=== PATIENT | male | born 1950 | race Caucasian/White ===

== ENCOUNTER 2018-09-30 13:24 | Emergency (ER) | payer OTHER ==
[2018-09-30 14:37] LABS: Absolute Lymphocytes (CBC) 1.2 K/uL (0.7-4.9); Basophils % 0.4 % (0-1.3); Hematocrit 38.6 % (39.6-49.0); Lymphocytes % 21.5 % (15.3-44.8); MPV 8.4 fL (7.6-11.3); RBC Red Blood Cell Count 4.19 M/uL (4.33-5.43)
--- NOTE | 2018-09-30 14:37 | RAD REPORT ---
EXAM DESCRIPTION: CT - Head Brain Wo Cont - 09/30/2018 2:27 pm CLINICAL HISTORY: Numbness COMPARISON: None TECHNIQUE: Computed axial tomography of the head was obtained. IV contrast was not requested. All CT scans are performed using dose optimization technique as appropriate and may include automated exposure control or mA/KV adjustment according to patient size. FINDINGS: Postsurgical changes of an aneurysm repair are present. Artifact from the coils/clips resu lt in adjacent artifact limiting evaluation of the [place]. An intracranial bleed is not seen. The ventricles are normal in caliber. No extra-axial fluid collection is noted. Fluid within the sinuses/ mastoids is not seen. IMPRESSION: No acute intracranial abnormality is seen.
[2018-09-30 14:41] LABS: Magnesium 2.3 mg/dL (1.8-2.4)
--- NOTE | 2018-09-30 14:57 | RAD REPORT ---
EXAM DESCRIPTION: CTThoracic Spine W/o Cont09/30/2018 2:27 pm CLINICAL HISTORY: Numbness COMPARISON: None TECHNIQUE: Computed axial tomography of thoracic spine was obtained with coronal and sagittal recons truction. All CT scans are performed using dose optimization technique as appropriate and may include automated exposure control or mA/KV adjustment according to patient size. FINDINGS: No fracture is seen. No dislocation is noted. Mild spondylosis An obvious significant bulging/disc herniation is not seen. Evaluation is limited on CT. Ascending thoracic aortic aneurysm 4.6 centimeters IMPRESSION: Negative for a thoracic fracture If the patient has clinical symptoms to suggest spinal cord/canal pathology then MRI would be recomme nded. Ascending thoracic aortic aneurysm 4.6 centimeters
--- NOTE | 2018-09-30 14:57 | RAD REPORT ---
EXAM DESCRIPTION: CTSpine Lumbar Wo Con09/30/2018 2:30 pm CLINICAL HISTORY: Numbness COMPARISON: None TECHNIQUE: Computed axial tomography lumbar spine was obtained with coronal and sagittal reconstruct ion. All CT scans are performed using dose optimization technique as appropriate and may include automated exposure control or mA/KV adjustment according to patient size. FINDINGS: Mild anterior subluxation L5 on S1. Spondylolysis L5. Disc space narrowing and vacuum phen omena L5-S1. No acute fracture. L1-2 disc is thinned. Vacuum phenomena is present. Gas bubble measuring 7 millimeters extends from th e disc into the right posterolateral aspect of the spinal canal inferiorly. Disc bulge is present Mild posterior subluxation of L2 on L3. Disc bulge. Thecal sac measures 8 millimeters. Neural foramin a are narrowed. Disc bulge L3-4. Mild narrowing of the thecal sac Mild posterior subluxation L4 on L5 with facet hypertrophy and mild narrowing of the thecal sac. 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
--- NOTE | 2018-09-30 15:10 | RAD REPORT ---
EXAM DESCRIPTION: US - Lower Extremity Artery Uni Ltd - 09/30/2018 2:41 pm CLINICAL HISTORY: RLE pain and weakness COMPARISON: No comparisons FINDINGS: Doppler interrogation of the right lower extremity arterial system was performed. Triphasi c waveforms are seen throughout the right lower extremity arterial system. No significant stenosis or occlusion seen. Small 2 cm Woodward's cyst. IMPRESSION: No significant flow abnormality of right lower extremity arterial system.
[2018-09-30] MEDS ORDERED: dexAMETHasone 10 MG/ML VIAL ONE (15:40)
[2018-09-30] MEDS ORDERED: MEPERIDINE HCL 25 MG/0.5 ML ONE (15:51)
--- NOTE | 2018-09-30 16:21 | ER ---
Nurse's Notes [facility] Name: Joselito Sharma Age: 68 yrs Sex: Male : 1950 Arrival Date: 09/30/2018 Time: 13:26 Bed 8 Private MD: Johnathan Oropeza C Diagnosis: Intervertebral disc disorders with radiculopathy, lumbar region Presentation: 09/30 13:31 Presenting complaint: Patient states: I have been having a lot of pain in numbness in la1 my back/legs and I cant move my toes in my right foot now. Transition of care: patient was not received from another setting of care. Onset of symptoms was September 30, 2018. Risk Assessment: Do you want to hurt yourself or someone else? Patient reports no desire to harm self or others. Initial Sepsis Screen: Does the patient meet any 2 criteria? No. Patient's initial sepsis screen is negative. Does the patient have a suspected source of infection? No. Patient's initial sepsis screen is negative. Care prior to arrival: None. 13:31 Method Of Arrival: Wheelchair la1 13:31 Acuity: LUIS 2 la1 Historical: - Allergies: 13:32 No Known Allergies; la1 - PMHx: 13:32 Hypertension; High Cholesterol; la1 - Immunization history:: Adult Immunizations up to date. - Social history:: Smoking status: Patient/guardian denies using tobacco. - Ebola Screening: : No symptoms or risks identified at this time. - Family history:: not pertinent. - Hospitalizations: : No recent hospitalization is reported. Screenin:47 Abuse screen: Denies threats or abuse. Denies injuries from another. Nutritional mg2 screening: No deficits noted. Tuberculosis screening: No symptoms or risk factors identified. Fall Risk Fall in past 12 months (25 points). Gait- Weak (10 pts.). Assessment: 13:45 General: Appears in no apparent distress. comfortable, Behavior is calm, cooperative. mg2 Pain: Complains of pain in right leg Pain radiates to right foot Pain currently is 5 out of 10 on a pain scale. Quality of pain is described as numb, Pain began 30 min ago. 4 days ago. Neuro: Level of Consciousness is awake, alert, obeys commands, Oriented to person, place, time, situation. Cardiovascular: Capillary refill < 3 seconds Patient's skin is warm and dry. Respiratory: Airway is patent Respiratory effort is even, unlabored, Respiratory pattern is regular, symmetrical. GI: Reports constipation. : No signs and/or symptoms were reported regarding the genitourinary system. EENT: No signs and/or symptoms were reported regarding the EENT system. Derm: Skin is intact, is healthy with good turgor, Skin is pink, warm \T\ dry. normal. Musculoskeletal: Reports numbness in right foot since wednesday. 14:09 Neuro: Numbness in right foot, presence of pulse in both feet by doppler ultrasound. mg2 16:01 Reassessment: Patient appears in no apparent distress at this time. mg2 Vital Signs: 13:33 BP 170 / 89; Pulse 83; Resp 16; Temp 97.6; Pulse Ox 98% on R/A; Weight 93.44 kg; la1 13:47 BP 152 / 94; Pulse 79; Resp 18; Pulse Ox 99% on R/A; mg2 16:01 BP 136 / 75; Pulse 65; Resp 18; Pulse Ox 98% on R/A; mg2 ED Course: 13:26 Patient arrived in ED. as 13:26 Johnathan Oropeza MD is Private Physician. as 13:30 Arm band placed on right wrist. la1 13:32 Triage completed. la1 13:34 Alex Negron, OBED is Primary Nurse. mg2 13:40 Tim Duran MD is Attending Physician. rn 13:47 Patient has correct armband on for positive identification. Pulse ox on. NIBP on. Door mg2 closed. Warm blanket given. 13:47 No provider procedures requiring assistance completed. Patient did not have IV access mg2 during this emergency room visit. 14:05 Initial lab(s) drawn, by ut, sent to lab. First set of blood cultures drawn by ut. 3 Inserted saline lock: 20 gauge in right antecubital area, using aseptic technique. Blood collected. 14:20 Second set of blood cultures drawn by ut. dh3 14:24 CT Head Brain wo Cont In Process Unspecified. EDMS 14:28 Thoracic Spine W/o Cont In Process Unspecified. EDMS 14:28 Spine Lumbar Wo Con In Process Unspecified. EDMS 14:42 Lower Extremity Artery Uni Ltd US In Process Unspecified. EDMS 16:20 Jerardo Woodward MD is Referral Physician. rn 16:35 IV discontinued, intact, bleeding controlled, No redness/swelling at site. Pressure mg2 dressing applied. Administered Medications: 15:56 Drug: Decadron - Dexamethasone 10 mg Route: IVP; Site: right antecubital; mg2 16:25 Follow up: Response: No adverse reaction mg2 15:56 Drug: Demerol 25 mg Route: IVP; Site: right antecubital; mg2 16:25 Follow up: Response: No adverse reaction; Marked relief of symptoms; RASS: Alert and mg2 Calm (0) Outcome: 16:20 Discharge ordered by . rn 16:35 Discharged to home via wheelchair, with family. mg2 16:35 Condition: stable 16:35 Discharge instructions given to patient, family, Instructed on discharge instructions, follow up and referral plans. medication usage, Demonstrated understanding of instructions, follow-up care, medications, Prescriptions given X 2. 16:53 Patient left the ED. mg2 Signatures: Dispatcher [employer] EDMS Angela Choudhury Roman, MD MD rn Attema, Lee, RN RN mo1 Lena Jules 3 Alex Negron RN RN mg2 Corrections: (The following items were deleted from the chart) 14:10 13:45 GI: No signs and/or symptoms were reported involving the gastrointestinal system. mg2 mg2 16:04 16:01 Pulse 65bpm; Resp 18bpm; Pulse Ox 98% RA; mg2 mg2
--- NOTE | 2018-09-30 16:22 | EDPHYS ---
Physician Documentation [facility] Name: Joselito Sharma Age: 68 yrs Sex: Male : 1950 Arrival Date: 09/30/2018 Time: 13:26 Bed 8 Private MD: Johnathan Oropeza C ED Physician Tim Duran HPI: 09/30 15:41 This 68 yrs old Male presents to ER via Wheelchair with complaints of Leg rn Pain, Back Pain, Numbness - Feet. 15:41 The patient presents with weakness. The complaints affect the right foot. Context: The rn problem was sustained at home, resulted from an unknown cause, the patient can partially bear weight. Onset: The symptoms/episode began/occurred 2 day(s) ago. Modifying factors: The symptoms are alleviated by nothing. the symptoms are aggravated by nothing. Severity of symptoms: At their worst the symptoms were mild, in the emergency department the symptoms are unchanged. The patient has experienced similar episodes in the past. Reports has had chronic back problems with pain in hips, and tingling going down legs. 2 days ago reports noticed weakness of toes, weakness plantar flexing toes and foot, no new trauma, no bowel/bladder issues. No IV drug use. No recent skin infection. Historical: - Allergies: 13:32 No Known Allergies; la1 - PMHx: 13:32 Hypertension; High Cholesterol; la1 - Immunization history:: Adult Immunizations up to date. - Social history:: Smoking status: Patient/guardian denies using tobacco. - Ebola Screening: : No symptoms or risks identified at this time. - Family history:: not pertinent. - Hospitalizations: : No recent hospitalization is reported. ROS: 15:41 Constitutional: Negative for fever, chills, and weight loss, Eyes: Negative for injury, rn pain, redness, and discharge, Neck: Negative for injury, pain, and swelling, Cardiovascular: Negative for chest pain, palpitations, and edema, Respiratory: Negative for shortness of breath, cough, wheezing, and pleuritic chest pain, Abdomen/GI: Negative for abdominal pain, nausea, vomiting, diarrhea, and constipation, Back: + low back pain, negative for injury : Negative for injury, bleeding, discharge, and swelling, MS/Extremity: Negative for injury and deformity, Neuro: + tingling and weakness RLE Exam: 15:41 Constitutional: This is a well developed, well nourished patient who is awake, alert, rn and in no acute distress. Head/Face: Normocephalic, atraumatic. Eyes: Pupils equal round and reactive to light, extra-ocular motions intact. Lids and lashes normal. Conjunctiva and sclera are non-icteric and not injected. Cornea within normal limits. Periorbital areas with no swelling, redness, or edema. Neck: Trachea midline, no thyromegaly or masses palpated, and no cervical lymphadenopathy. Supple, full range of motion without nuchal rigidity, or vertebral point tenderness. No Meningismus. Abdomen/GI: soft, non-tender Back: + lumbar spinal tenderness MS/ Extremity: Pulses equal, no cyanosis. Neurovascular intact. Full, normal range of motion. Equal circumference. Neuro: Awake and alert, GCS 15, oriented to person, place, time, and situation. Cranial nerves II-XII grossly intact. Decreased sensation to RLE below knee, + weakness plantar flexing toes of RLE and plantar flexion of foot. Normal dorsiflexion of foot. Normal strength of knee and hip. Vital Signs: 13:33 BP 170 / 89; Pulse 83; Resp 16; Temp 97.6; Pulse Ox 98% on R/A; Weight 93.44 kg; la1 13:47 BP 152 / 94; Pulse 79; Resp 18; Pulse Ox 99% on R/A; mg2 16:01 BP 136 / 75; Pulse 65; Resp 18; Pulse Ox 98% on R/A; mg2 MDM: 13:41 Patient medically screened. rn 16:18 Differential diagnosis: radiculopathy, spinal cord compression, disc herniation. Data rn reviewed: vital signs, nurses notes, lab test result(s), radiologic studies, CT scan, and as a result, I will discharge patient. Counseling: I had a detailed discussion with the patient and/or guardian regarding: the historical points, exam findings, and any diagnostic results supporting the discharge/admit diagnosis, lab results, radiology results, the need for outpatient follow up, to return to the emergency department if symptoms worsen or persist or if there are any questions or concerns that arise at home. Response to treatment: the patient's symptoms have mildly improved after treatment, and as a result, I will discharge patient. Special discussion: I discussed with the patient/guardian in detail that at this point there is no indication for admission to the hospital. It is understood, however, that if the symptoms persist or worsen the patient needs to return immediately for re-evaluation. Based on the history and exam findings, there is no indication for further emergent testing or inpatient evaluation. I discussed with the patient/guardian the need to see the back specialist for further evaluation of the symptoms. ED course: Pt with nonspecific gas bubble near nerve root that is causing symptoms, could be from recent/subacute disc herniation that has not reabsorbed, no signs or symptoms of abscess, procal normal, wbc normal, not IV drug user, no recent trauma. Mild weakness limited to toes/foot. Will give trial of rest and steroids to see if air reabsorbs, if worsens told to return immediately. Understands. . 16:32 ED course: Told patient and daughter that if does not respond to steroids and time, rn will need needle aspiration by spine surgeon. Given unknown clear onset, and most likely recent, will give trial of time and steroids to possibly save patient from surgery. . 09/30 13:56 Order name: CBC with Diff; Complete Time: 15:21 rn 09/30 13:56 Order name: Basic Metabolic Panel; Complete Time: 15:21 rn 09/30 13:58 Order name: Blood Culture Adult (2) rn 09/30 13:58 Order name: Procalcitonin; Complete Time: 15:21 rn 09/30 13:58 Order name: CT Head Brain wo Cont; Complete Time: 15:21 rn 09/30 13:58 Order name: Magnesium; Complete Time: 15:21 rn 09/30 13:56 Order name: IV Start; Complete Time: 14:18 rn 09/30 13:58 Order name: Lower Extremity Artery Uni Ltd US; Complete Time: 15:21 rn 09/30 14:21 Order name: Thoracic Spine W/o Cont; Complete Time: 15:21 EDMS 09/30 14:22 Order name: Spine Lumbar Wo Con; Complete Time: 15:21 EDMS Administered Medications: 15:56 Drug: Decadron - Dexamethasone 10 mg Route: IVP; Site: right antecubital; mg2 16:25 Follow up: Response: No adverse reaction mg2 15:56 Drug: Demerol 25 mg Route: IVP; Site: right antecubital; mg2 16:25 Follow up: Response: No adverse reaction; Marked relief of symptoms; RASS: Alert and mg2 Calm (0) Disposition: 09/30/18 16:20 Discharged to Home. Impression: Intervertebral disc disorders with radiculopathy, lumbar region. - Condition is Stable. - Discharge Instructions: Herniated Disk, Lumbosacral Radiculopathy. - Prescriptions for Tylenol- Codeine #3 300-30 mg Oral Tablet - take 1 tablet by ORAL route every 6 hours As needed; 20 tablet. Medrol ([place]) 4 mg Oral Tablets, Dose Pack - take 1 tablet by ORAL route as directed - follow package instructions; 1 packet. - Medication Reconciliation Form, Thank You Letter, Antibiotic Education, Prescription Opioid Use form. - Follow up: Jerardo Woodward MD; When: 5 - 6 days; Reason: Recheck today's complaints, Re-evaluation by your physician. - Problem is an ongoing problem. - Symptoms have improved. Signatures: Dispatcher [employer] EDMS Tim Duran MD MD rn Attema, Lee, RN RN la1 Alex Negron RN RN mg2 Corrections: (The following items were deleted from the chart) 15:25 14:01 Lumbar Spine Wo Con ordered. EDLA EDMS 15:25 14:01 Thoracic Spine Wo Contr ordered. EDLA EDMS 16:53 16:20 09/30/2018 16:20 Discharged to Home. Impression: Intervertebral disc disorders mg2 with radiculopathy, lumbar region. Condition is Stable. Forms are Medication Reconciliation Form, Thank You Letter, Antibiotic Education, Prescription Opioid Use. Follow up: Jerardo Woodward; When: 5 - 6 days; Reason: Recheck today's complaints, Re-evaluation by your physician. Problem is an ongoing problem. Symptoms have improved. rn
== END 2018-09-30 16:53 | disposition home or self-care (01) ==
LOC: ER 13:24
DX: M51.16 Intervertebral disc disorders with radiculopathy, lumbar region (principal); I10 Essential (primary) hypertension
CPT/HCPCS: 87040 ×2; 85025; 80048; 36415; 83735; 84145; 72131; 70450; 72128; 93926; 96375; 96374; 99284; J1100; J2175

== ENCOUNTER 2018-10-06 11:54 | Inpatient (IN) | payer OTHER ==
--- NOTE | 2018-10-06 13:54 | R.PREADM ---
SCREENING DATE AND TIME 10/06/2018 12:00 (CDT) ANTICIPATED REHAB ADMISSION DATE 10/08/2018 REFERRING FACILITY [facility] REFERRAL DATE AND TIME 10/06/2018 12:00 (CDT) ACUTE ADMIT DATE 10/02/2018 Previous Rehabilitation(s): No. REFERRING PHYSICIAN [facility] REHAB FACILITY [facility] CLINICAL LIAISON Maicol Marques PHYSICIAN REVIEWER Dr. Eric Wadsworth M.D. [facility] [id number] [id number] NAME JOSELITO ROCK AD[address]ESS [address] [place] [address] [place]IP [address] DATE OF 1950 AGE 68 SSN# [id number] GENDER male MARITAL STATUS Single (Never ) RACE white ADMIT FROM 02 - [facility] PRE-HOSPITAL LIVING SETTING 01 - Home (private home/apt. board/care, assisted living, nursing home, transitional living) HOME TYPE AND DETAILS Type of home: single family house # of steps to enter the residence: 0 # of steps within the residence: 0 # of levels in the residence: 1 PRE-HOSPITAL LIVING WITH Family/Relatives FAMILY SUPPORT Yes PHONE PRIMARY FAMILY CONTACT ON ADM.? no IS PRIMARY FAMILY CONTACT AUTH. REP.? no PHONE 1ST CONTACT ON ADM. no IS 1ST CONTACT AUTH. REP.? no PHONE 2ND CONTACT ON ADM.? no PATIENT EMPLOYMENT STATUS Retired (for age) PATIENT EMPLOYER No Employer PAYOR INFORMATION: 1ST PAYOR NAME MEDICARE 1ST PAYOR PHONE 1ST PAYOR INJURY/ILLNESS DUE TO ACCIDENT? No ANOTHER CONSTITUTION PARTY RESPONSIBLE? No PRIMARY REHAB/ACUTE DIAGNOSIS: Severe L3-L5 spinal stenosis and cauda equina compression (M48.06, G83.4) ONSET DATE 10/02/2018 REHAB IMPAIRMENT CATEGORY (SOO): 05 Nontraumatic spinal cord injury (NTSCI) MEETS 60% rule PRIMARY DIAGNOSIS-RELATED SURGERIES: No surgeries related to the primary diagnosis were performed. COMORBID REHAB/ACUTE DIAGNOSES: - Non-Tiered Obesity, unspecified (E66.9) - N/A diabetes II chronic kidney disease stage hypertension INTERVENTIONS: - Hypertension Fluid management Medications VS RISK FOR COMPLICATIONS: - Hypertension CVA Hypotension NC TIA SUMMARY OF ACUTE HOSPITALIZATION: Pt. is a 68 yo Right-handed white male. On 10/02/2018 he was admitted to [facility] with diagnosis Severe L3-L5 spinal stenosis and cau da equina compression (M48.06, G83.4). His impairment category is Spinal Cord Dysfunction 04 - Other Non-traumatic Spinal Cord Dysfunction (04.130). Pre-morbidly, Pt. was independent/mod-I in Self-Care, Sphincter Control, Transfers Control, Locomotio n, Communication, and Social Cognition; and he had good Sphincter Control. Currently, he has deficits of Transfers Control, Locomotion, Endurance, Balance, Safety Awareness, an d Self-Care. Pt. is now referred to [facility] for acute in-patient rehabilitation in order to maximize patient's functional independence in activities of daily living, strength, ROM, and mobi lity. Patient has realistic goal of being discharged at assistance level 6-Dioni to reside at Home with Fam iza/Relatives. Joselito Rock is a 68 old male that lives in a single ulices house. He was independent with ADLs and BADLs, still driving and doing yard works. Five days before his admission, he noticed having feeling of heaviness and pain on both lower extremities up to the level of hips and continued to worsen. He attempted to walk but he tripped several times and started to have intermittent urinary incontinence and saddle anesthesia. Patients daughter brought him to local ER and CT lumbar spine was negative. On 10/02/2018, persistent urinary incontinence and unable to move his RLE due to heaviness prompted the family to brought him at [facility]. He is now medically stable but in need of 24-hour nursing, doctor supervision and oversite while receiving acti ve and ongoing intensive (PT, reasonably expected to participate in 3hours of therapy a day/15 hours per week and receive care with an intensive interdisciplinary approach. PAST MEDICAL HISTORY Obesity, unspecified (E66.9) chronic kidney disease stage diabetes II hypertension PAST SURGICAL HISTORY: aneurysm clipping MEDICATION ALLERGIES: No Known Drug Allergies (NKDA) ENVIRONMENTAL ALLERGIES: - Substance Allergies None Known - Other Allergies None Known CODE STATUS: Full code WEIGHT/HEIGHT/BMI: WEIGHT 201 lbs HEIGHT 5' 10" BMI 28.8 DIET: - Diet Type heart healthy - Diet - Solid Texture Regular - Diet - Liquid Texture Regular - Tube Feed N/A REVIEW OF SYSTEMS: - Gen Alert and awake Lying in bed No apparent distress Oriented to: person, time, and place - CVS RRR VITAL SIGNS Temperature: 97.9 F SBP/DBP: 135/63 Pulse: 78 Resp: 18 Vital signs stable, afebrile MEDICATIONS/TREATMENT: Other- See attached MAR (Medication Administration Record). CURRENT SPHINCTER CONTROL: Pre-hospital bladder status: incontinent # of bladder accidents in the last 7 days prior to screenin Pre-hospital bowel status: unspecified # of bowel accidents in the last 7 days prior to screenin Last Bowel Movement Date: 10/06/2018 DETAILED CURRENT FUNCTIONAL STATUS: - Bladder Bladder control device used: diaper accident frequency: Ind - No accidents in the past 7 days - Bowel accident frequency: Ind - No accidents in the past 7 days - Walking score based on distance walked: 3(>=150ft) - Wheelchair score based on distance traveled: 2(5149ft) FUNCTIONAL STATUS: - Self-Care A. Eating Ind Ind B. Grooming Ind Ind C. Bathing Ind Ind D. Dressing - Upper Ind Ind E. Dressing - Lower Ind Raven F. Toileting Ind Raven - Sphincter Control G: Bladder control Ind Raven H: Bowel control Ind Ind - Transfers Control I. Bed/Chair/Wheelchair Ind Raven J. Toilet Ind Raven K. Tub/Shower Ind Raven - Locomotion L. Walk/Wheelchair (C) Ind Raven L. Walk/Wheelchair (W) Ind Raven M. Stairs Ind ADNO - Communication N. Comprehension (B) Ind Ind O. Expression (B) Ind Ind - Social Cognition P. Social Interaction Ind Ind Q. Problem Solving Ind Ind R. Memory Ind Ind - Endurance Fair - Balance Fair - Safety Awareness Fair CURRENT FUNC. DEFICITS: Transfers Control, Locomotion, Endurance, Balance, Safety Awareness, and Self-Care THERAPY NOTES FROM ACUTE CARE: Attached. SPECIAL NEEDS: - Safety Concerns Skin breakdown precautions needed due to skin breakdown risk PATIENT NEEDS ACTIVE AND ONGOING THERAPEUTIC INTERVENTION OF MULTIPLE THERAPY DISCIPLINES, INCLUDING: - Orthotics/Prosthetics Orthotic Evaluation. Splinting/Casting. - Dietary and Nutrition Adequate Nutrition. Nutritional Education. Nutritional Supplements. PATIENT NEEDS CLOSE MEDICAL SUPERVISION BY A REHABILITATION PHYSICIAN FOR: Bowel and Bladder Management Coordination of Treatment Team Diabetes Management Medical and Co-Morbidity Management PATIENT REQUIRES 24X7 REHAB NURSING FOR MEDICAL AND FUNCTIONAL MGT. OF THE FOLLOWING DEFICITS: ADL's Ambulation Bowel and Bladder Management Communication Disease Management Medication Management Patient/Family Education Providing Safe Environment Transfers PATIENT REQUIRES INTENSIVE, COORDINATED INTERDISCIPLINARY APPROACH TO REHAB: Arranging Home Equipment/Services Discharge Planning Family Intervention/Training Electric Lift Truck Driver/Case Management PATIENT REHAB POTENTIAL: Denton LOREDO is able and expected to receive 3 hours of individualized therapy daily on at least 5 of every 7 days Denton Lim prognosis for significant practical improvement within a reasonable perio d of time appears Good Expected level of measurable improvement will be of a practical value to Denton GUTIERREZs functional capacity or adaptations to impairments Has a viable Discharge Plan Medically appropriate; condition is sufficiently stable to participate in intensive rehab program DISCHARGE PLAN: - Estimated Length of Stay (days) 16. - Consensus on plan Discharge plan has been discussed with primary caregiver. Patient/Family is in agreement with the delores n. Primary caregiver is in agreement with the plan. - Patient/Family Goals Return home with assistance. - Planned Living Setting Upon Discharge Home, to live with Family/Relatives. RECOMMENDED CARE LEVEL: IRF RECOMMENDATION DETAILS: Recommended Admission to Comprehensive Rehabilitation Program to Increase Functional Waldo SCREENER'S COMPLETENESS CONFIRMATION: - Screening Confirmation The patient data collection on this preadmission screening form is finished PHYSICIANS REVIEW AND ADMISSION DETERMINATION Admit - Based on my review of the Pre-Admission Screening results, in my medical judgment and experie nce, I concur with the findings and recommend admission to [facility], as this patient requires an IRF level of care. SIGNATURE PANEL: Clinical Liaison - [electronically] signed by Gissell Burch on 10/06/2018 at 13:16 (CDT) Clinical Liaison - [electronically] signed by Maicol Marques on 10/06/2018 at 13:17 (CDT) Physician Reviewer - [electronically] signed by Dr. Eric Wadsworth M.D. on 10/06/2018 at 13:53 (CDT )
[2018-10-06] MEDS ORDERED: AMLODIPINE 5 MG TAB PO SCH (20:00)
[2018-10-06] MEDS ORDERED: DOCUSATE NA/SENNA CONC 1 TAB PO PRN (23:10)
[2018-10-06] MEDS ORDERED: ACETAMINOPHEN 325 MG TABLET PO PRN (23:10)
[2018-10-06] MEDS ORDERED: MELATONIN 3 MG TABLET PO PRN (23:10)
[2018-10-07 00:01] LABS: Urine Appearance CLEAR; Urine Bilirubin NEGATIVE (NEG); Urine Blood 3+ (NEG); Urine Color YELLOW; Urine Glucose 2+ (NEG); Urine Protein NEGATIVE (NEG); Urine Urobilinogen 0.2 mg/dL (0.2-1.0); Urine pH 5.5 (5.0-7.0)
[2018-10-07 02:39] LABS: Urine Culture Reflex Order NOT NEEDED
[2018-10-07 02:40] LABS: Urine Bacteria <20 /HPF (NONE SEEN); Urine RBC 20-50 /HPF (NONE SEEN)
[2018-10-07] MEDS: METOPROLOL XL 50 MG TAB PO SCH (05:36)
[2018-10-07] MEDS ORDERED: METOPROLOL XL 50 MG TAB PO SCH (06:00)
[2018-10-07 06:52] LABS: Absolute Lymphocytes (CBC) 0.8 K/uL (0.7-4.9); Basophils % 0.1 % (0-1.3); Hematocrit 37.7 % (39.6-49.0); Lymphocytes % 12.6 % (15.3-44.8); MPV 9.1 fL (7.6-11.3); RBC Red Blood Cell Count 4.11 M/uL (4.33-5.43)
[2018-10-07] MEDS: AMLODIPINE 5 MG TAB PO SCH ×2 (08:23→20:58)
[2018-10-07] MEDS: FENOFIBRATE 160 MG TAB PO SCH (08:23)
[2018-10-07] MEDS: APIXABAN 2.5 MG TABLET PO SCH ×2 (08:24→20:55)
[2018-10-07 09:11] LABS: Albumin 2.7 g/dL (3.4-5.0); Magnesium 2.7 mg/dL (1.8-2.4); Potassium 4.6 mmol/L (3.5-5.1); Prealbumin 23.4 mg/dL (20-40)
--- NOTE | 2018-10-07 10:10 | P.RH.PN ---
Estimated Length of Stay: 14 Expected Discharge Date: 10/19/18 Discharge Disposition Plan: Home Family Support: Yes Group Home Goal: Mobility, Transfers, Self Care Vital Signs: Last Vital Signs Temp 96.9 F 10/07/18 06:30 Pulse 57 10/07/18 08:23 Resp 18 10/07/18 06:30 BP 132/64 10/07/18 08:23 Pulse Ox 96 10/07/18 06:30 Laboratory: Laboratory Last Values WBC 6.6 K/uL (4.3-10.9) D 10/07/18 06:32 RBC 4.11 M/uL (4.33-5.43) L 10/07/18 06:32 Hgb 13.0 g/dL (13.6-17.9) L 10/07/18 06:32 Hct 37.7 % (39.6-49.0) L 10/07/18 06:32 MCV 91.6 fL (80-100) 10/07/18 06:32 MCH 31.6 pg (27.0-35.0) 10/07/18 06:32 MCHC 34.5 g/dL (32.0-36.0) 10/07/18 06:32 RDW 13.0 % (12.1-15.2) 10/07/18 06:32 Plt Count 217 K/uL (152-406) 10/07/18 06:32 MPV 9.1 fL (7.6-11.3) 10/07/18 06:32 Neutrophils % 83.4 % (41.7-73.7) H 10/07/18 06:32 Lymphocytes % 12.6 % (15.3-44.8) L 10/07/18 06:32 Monocytes % 3.9 % (3.3-12.3) 10/07/18 06:32 Eosinophils % 0.0 % (0-4.4) 10/07/18 06:32 Basophils % 0.1 % (0-1.3) 10/07/18 06:32 Absolute Neutrophils 5.5 K/uL (1.8-8.0) 10/07/18 06:32 Absolute Lymphocytes 0.8 K/uL (0.7-4.9) 10/07/18 06:32 Absolute Monocytes 0.3 K/uL (0.1-1.3) 10/07/18 06:32 Absolute Eosinophils 0.0 K/uL (0-0.5) 10/07/18 06:32 Absolute Basophils 0.0 K/uL (0-0.5) 10/07/18 06:32 Sodium 142 mmol/L (136-145) 10/07/18 06:30 Potassium 4.6 mmol/L (3.5-5.1) 10/07/18 06:30 Chloride 107 mmol/L (98-107) 10/07/18 06:30 Carbon Dioxide 30 mmol/L (21-32) 10/07/18 06:30 BUN 54 mg/dL (7-18) H D 10/07/18 06:30 Creatinine 1.79 mg/dL (0.55-1.3) H 10/07/18 06:30 Estimated GFR 38 mL/min (=/>90) L 10/07/18 06:30 Glucose 128 mg/dL (74-106) H 10/07/18 06:30 Calcium 8.3 mg/dL (8.5-10.1) L 10/07/18 06:30 Magnesium 2.7 mg/dL (1.8-2.4) H 10/07/18 06:30 Albumin 2.7 g/dL (3.4-5.0) L 10/07/18 06:30 Prealbumin 23.4 mg/dL (20-40) 10/07/18 06:30 Urine Color Yellow 10/06/18 22:30 Urine Appearance Clear 10/06/18 22:30 Urine pH 5.5 (5.0-7.0) 10/06/18 22:30 Ur Specific [place] 1.020 (1.005-1.030) 10/06/18 22:30 Urine Ketones Negative (NEG) 10/06/18 22:30 Urine Blood 3+ (NEG) H 10/06/18 22:30 Urine Nitrite Negative (NEG) 10/06/18 22:30 Urine Bilirubin Negative (NEG) 10/06/18 22:30 Urine Urobilinogen 0.2 mg/dL (0.2-1.0) 10/06/18 22:30 Ur Leukocyte Esterase Negative (NEG) 10/06/18 22:30 Urine RBC 20-50 /HPF (NONE SEEN) H 10/06/18 22:30 Urine WBC <5 /HPF (<5) 10/06/18 22:30 Ur Squamous Epith Cells LOGGER ALL ROUND 10/06/18 22:30 Ur Urothelial Cells <5 /HPF (NONE SEEN) 10/06/18 22:30 Uric Acid Crystals Many (NONE SEEN) H 10/06/18 22:30 Urine Bacteria <20 /HPF (NONE SEEN) 10/06/18 22:30 Urine Culture Reflexed Not needed 10/06/18 22:30 Urine Glucose 2+ (NEG) H 10/06/18 22:30 Urine Total Protein Negative (NEG) 10/06/18 22:30 Weight: 201 lb 12.8 oz Wound Present: No Closed Surgical Incision Present: No Negative Pressure Wound Therapy Present: No Physician Update: Labs reviewed and 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 He is able to ambulated wiwth moderate assistance. He has loss of bladder control due to severe spinal stenosis. Summary: Patient's care plan and care home goals have been reviewed and revised as necessary. Please see the Rehabilitation Signature page for all necessary signatures.
--- NOTE | 2018-10-07 15:03 | FAST ---
ENCOUNTER DATE AND TIME: 10/07/2018 08:00 (CDT) NAME MONAE ROCK DATE OF : 1950 DATE OF ADMISSION: 10/06/2018 17:57 (CDT) PHONE: AGE: 68 SSN# [id number] GENDER: Male ENCOUNTER PHYSICIAN: Dr. Eric Wadsworth M.D. ADMISSION DIAGNOSIS: - Spinal Cord Dysfunction 04 - Other Non-traumatic Spinal Cord Dysfunction (04.130) Severe L3-L5 spinal stenosis and cauda equina compression (M48.06, G83.4). EATING: Activity did not occur on this shift EATING - SCORE: 0-UNK GROOMING: Comb/brush hair Patient shaved Wash, rinse, and dry face Wash, rinse, and dry hands GROOMING - STEP 1: Does the patient require the assistance of a person or device, or need extra time when grooming? Yes. GROOMING - STEP 2: Does the patient require the assistance of a helper? Yes. GROOMING - STEP 3: How much assistance does the patient require from the helper? Only prior equipment preparation/set up from the helper GROOMING - SCORE: 5-SUP BATHING: Abdomen Buttocks Chest Left arm Left lower leg and foot Left upper leg Perineal area Right arm Right lower leg and foot Right upper leg BATHING - STEP 1: Does the patient require the assistance of a person or device, or need extra time when bathing? Yes. BATHING - STEP 2: Does the patient require the assistance of a helper? Yes. BATHING - STEP 3: How much assistance does the patient require from the helper? Only incidental help such as placement of a wash cloth in his/her hand a few times as s/he bathes OR help to bathe just one or two areas of the body BATHING - SCORE: 4-MIN DRESSING - UPPER BODY: Button down shirt or blouse - NOT tucked in (four steps) ARTICLES SCORE Total number of steps: 4 DRESSING - UPPER BODY - STEP 1: Does the patient require help from a person or device, or need extra time when dressing above the golden st? Yes. DRESSING - UPPER BODY - STEP 2: Does the patient require the assistance of a helper? Yes. DRESSING - UPPER BODY - STEP 3: Does the helper touch the patient while dressing? No. DRESSING - UPPER BODY - SCORE: 5-SUP DRESSING - LOWER BODY: Sock - Left foot (one step) Sock - Right foot (one step) Underwear (three steps) Zippered pants (four steps) ARTICLES SCORE Total number of steps: 9 DRESSING - LOWER BODY - STEP 1: Does the patient require help from a person or device, or need extra time when dressing below the golden st? Yes. DRESSING - LOWER BODY - STEP 2: Does the patient require the assistance of a helper? Yes. DRESSING - LOWER BODY - STEP 3: Does the helper touch the patient while dressing? Yes. DRESSING - LOWER BODY - STEP 4: How many of the total steps does the patient complete on his/her own? 9 DRESSING - LOWER BODY - SCORE: 4-MIN TOILETING: TOILETING - STEP 1: Does the patient require the assistance of a person or device, or need extra time with toileting? Yes . TOILETING - STEP 2: Does the patient require the assistance of a helper? Yes. TOILETING - STEP 3: How much assistance does the patient require from the helper? Hands-on assistance from the helper TOILETING - STEP 4: Of the 3 tasks: 1) Adjusting clothing prior to use, 2) Cleansing of perineal area, 3) Adjusting clot cindy after use; How many tasks does the patient perform WITHOUT assistance of the helper? Three tasks with steadying assistance from the helper TOILETING - SCORE: 4-MIN BLADDER MANAGEMENT: Activity did not occur on this shift BLADDER MANAGEMENT - SCORE: 7-IND BOWEL MANAGEMENT: Activity did not occur on this shift BOWEL MANAGEMENT - SCORE: 7-IND TRANSFERS: BED, CHAIR, WHEELCHAIR: TRANSFERS: BED, CHAIR, WHEELCHAIR - STEP 1: Does the patient require assistance of a person or device, or need extra time with bed, chair, or whe elchair transfers? Yes. TRANSFERS: BED, CHAIR, WHEELCHAIR - STEP 2: Does the patient require the assistance of a helper? Yes. TRANSFERS: BED, CHAIR, WHEELCHAIR - STEP 3: How much assistance does the patient require from the helper? Steadying/guiding assistance TRANSFERS: BED, CHAIR, WHEELCHAIR - SCORE: 4-MIN TRANSFERS: TOILET: TRANSFERS: TOILET - STEP 1: Does the patient require the assistance of a person or device, or need extra time with toilet transfe rs? Yes. TRANSFERS: TOILET - STEP 2: Does the patient require the assistance of a helper? Yes. TRANSFERS: TOILET - STEP 3: How much assistance does the patient require from the helper? Patient performs half or more of the tr ansferring tasks TRANSFERS: TOILET - STEP 4: Does the patient need only incidental help such as contact guard or steadying during toilet transfer? Yes. TRANSFERS: TOILET - SCORE: 4-MIN TRANSFERS: SHOWER: TRANSFERS: SHOWER - STEP 1: Does the patient require the assistance of a person or device, or need extra time with shower transfe rs? Yes. TRANSFERS: SHOWER - STEP 2: Does the patient require the assistance of a helper? Yes. TRANSFERS: SHOWER - STEP 3: How much assistance does the patient require from the helper? Only incidental help such as contact gu arding or steadying during shower transfers, or help to lift one leg into the shower TRANSFERS: SHOWER - SCORE: 4-MIN TRANSFERS: TUB: Activity did not occur on this shift TRANSFERS: TUB - SCORE: 0-UNK LOCOMOTION: WALK: Activity did not occur on this shift LOCOMOTION: WALK - SCORE: 0-UNK LOCOMOTION: WHEELCHAIR: Activity did not occur on this shift LOCOMOTION: WHEELCHAIR - SCORE: 0-UNK LOCOMOTION: STAIRS: Activity did not occur on this shift LOCOMOTION: STAIRS - SCORE: 0-UNK COMPREHENSION: COMPREHENSION: TYPE: Both COMPREHENSION - STEP 1: Does the patient require help from a person or device, or need extra time to understand complex and a bstract ideas (such as current events, finances, discharge planning, medical issues, relationships, e tc)? Yes. COMPREHENSION - STEP 2: Does the patient require help to understand questions or statements about basic needs or ideas (such as hunger, thirst, sleep, safety, daily schedule, room location, or discomfort) half or more of the t marietta? No. COMPREHENSION - STEP 3: How often does the patient need help to understand directions and conversation about basic needs? Les s than 10% of the time COMPREHENSION - SCORE: 5-SUP EXPRESSION EXPRESSION: TYPE: Both EXPRESSION - STEP 1: Does the patient require help from a person or device, or need extra time expressing complex and abst ract ideas (such as current events, finances, discharge planning, medical issues, relationships, etc) ? Yes. EXPRESSION - STEP 2: Does the patient require help to express basic necessities or ideas (such as hunger, thirst, sleep, s afety, daily schedule, room location, or discomfort) half or more of the time? No. EXPRESSION - STEP 3: How often does the patient need help to express directions and conversation about basic needs? Less t [place] 10% of the time EXPRESSION - SCORE: 5-SUP SOCIAL INTERACTION: SOCIAL INTERACTION - STEP 1: Does the patient require a helper to interact with others in social and therapeutic situations? No. SOCIAL INTERACTION - STEP 2: Does the patient need extra time in social situations, OR does s/he interact with staff, other patien ts, and family members ONLY in structured environments, OR does s/he require medication for social in teraction? Yes, patient needs extra time SOCIAL INTERACTION - SCORE: 6-DVAE PROBLEM SOLVING: PROBLEM SOLVING - STEP 1: Does the patient need help from a person or device, or need extra time to solve complex problems such as managing a checking account or confronting interpersonal problems? Yes. PROBLEM SOLVING - STEP 2: Does the patient solve basic routine problems half or more of the time? Yes. PROBLEM SOLVING - STEP 3: How often does the patient need help to solve basic routine problems? 10%-24% of the time PROBLEM SOLVING - SCORE: 4-MIN MEMORY: MEMORY - STEP 1: Does the patient need help from a person or device, or need extra time to remember frequently encount ered people, daily routines, and executing requests? Yes. MEMORY - STEP 2: How often does the patient need help to remember frequently encountered people, daily routines, and e xecuting requests? 10% - 24% of the time MEMORY - SCORE: 4-MIN SIGNATURE PANEL: The following modified sections: Eating - Score, Grooming - Score, Bathing - Score, Dressing - Upper Body - Score, Dressing - Lower Body - Score, Toileting - Score, Transfers: Bed, Chair, Wheelchair - S core, Transfers: Toilet - Score, Transfers: Shower - Score, Transfers: Tub - Score, Comprehension - S core, Expression - Score, Social Interaction - Score, Problem Solving - Score, Memory - Score were [e lectronically] signed by Nancy Kramer OT on WedOct 07 2018 15:02:24 T-0500 ([place] Time)
--- NOTE | 2018-10-07 17:25 | R.HP ---
FACILITY: [facility] ENCOUNTER DATE AND TIME: 10/07/2018 17:20 (CDT) MR#: [id number] NAME JOSELITO ROCK ADDRESS: [address] [place] [address] CITY: [facility] [id number] PHONE: DATE OF : 1950 AGE: 68 SSN# [id number] GENDER: Male DEXTERITY Right-handed MARITAL STATUS Single (Never ) RACE White PRE-HOSPITAL LIVING SETTING 01 - Home (private home/apt. board/care, assisted living, custodial, transitional living) PRE-HOSPITAL LIVING WITH Family/Relatives ENCOUNTER PHYSICIAN: Dr. Eric Wadsworth M.D. REFERRING DOCTOR: Tony torres DATE OF ADMISSION: 10/06/2018 17:57 (CDT) REFERRING FACILITY [facility] HOME TYPE AND DETAILS: Type of home: single family house # of steps to enter the residence: 0 # of steps within the residence: 0 # of levels in the residence: 1 ADMISSION DIAGNOSIS: Severe L3-L5 spinal stenosis and cauda equina compression (M48.06, G83.4) ONSET DATE: 10/02/2018 PRIMARY DIAGNOSIS-RELATED SURGERIES: No surgeries related to the primary diagnosis were performed. SECONDARY/COMORBID DIAGNOSES (TIERED): - Non-Tiered Obesity, unspecified (E66.9) - N/A diabetes II chronic kidney disease stage hypertension HISTORY OF PRESENT ILLNESS (HPI): Pt. is a 68 yo Right-handed white male. On 10/02/2018 he was admitted to [facility] with diagnosis Severe L3-L5 spinal stenosis and cau da equina compression (M48.06, G83.4). His impairment category is Spinal Cord Dysfunction 04 - Other Non-traumatic Spinal Cord Dysfunction (04.130). Pre-morbidly, Pt. was independent/mod-I in Self-Care, Sphincter Control, Transfers Control, Locomotio n, Communication, and Social Cognition; and he had good Sphincter Control. Currently, he has deficits of Transfers Control, Locomotion, Endurance, Balance, Safety Awareness, an d Self-Care. Pt. is now referred to [facility] for acute in-patient rehabilitation in order to maximize patient's functional independence in activities of daily living, strength, ROM, and mobi lity. Patient has realistic goal of being discharged at assistance level 6-Dioni to reside at Home with Fam iza/Relatives. Joselito Rock is a 68 old male that lives in a single ulices house. He was independent with ADLs and BADLs, still driving and doing yard works. Five days before his admission, he noticed having feeling of heaviness and pain on both lower extremities up to the level of hips and continued to worsen. He attempted to walk but he tripped several times and started to have intermittent urinary incontinence and saddle anesthesia. Patients daughter brought him to local ER and CT lumbar spine was negative. On 10/02/2018, persistent urinary incontinence and unable to move his RLE due to heaviness prompted the family to brought him at [facility]. He is now medically stable but in need of 24-hour nursing, doctor supervision and oversite while receiving acti ve and ongoing intensive (PT, reasonably expected to participate in 3hours of therapy a day/15 hours per week and receive care with an intensive interdisciplinary approach. MEDICATION ALLERGIES: No Known Drug Allergies (NKDA) ENVIRONMENTAL ALLERGIES: - Substance Allergies None Known - Other Allergies None Known PAST MEDICAL HISTORY: Obesity, unspecified (E66.9) chronic kidney disease stage diabetes II hypertension PAST SURGICAL HISTORY: aneurysm clipping FAMILY HISTORY: Family history is not contributory. SOCIAL HISTORY: - Home Living Family/Relatives REVIEW OF SYSTEMS: - Gen No Chills Fatigue No Fever - Eyes No Double Vision No itchiness - ENMT No Difficulty Swallowing - CVS No Chest Discomfort No Chest Pain Fatigue No Weight Gain - Resp No Cough No Shortness of Breath - GI Continent No Abdominal Pain Constipation No Diarrhea - Continent No Kidney Pain No Painful Urination No Urinary Urgency - MSK No Joint Pain Muscle Cramps Stiffness - Skin No Itching No Rash No Suspicious Lesions - Neuro Coordination Difficulty No Difficulty with Concentration No Memory Loss No Seizures Weakness - Psych No Anxiety No Depression No HIV Exposure No Persistent Infections No Seasonal Allergies - Endo No Cold/Heat Intolerance No Excessive Hunger No Excessive Thirst No Excessive Urination PHYSICAL EXAM - Gen Alert and awake Lying in bed No apparent distress Oriented to: person, time, and place - Skin No skin breakdown. No abnormalities - Eyes No abnormalities - ENMT No abnormalities - Neck No abnormalities - CVS RRR - Chest Clear - Abd Soft - GI Soft Deferred - Urinary retention - Ext No significant edema - MSK 4+/5 weakness in both lower extremities. - Neuro 4/5 strength bilaterally lower extremities. - Psych No abnormalities VITAL SIGNS Temperature: 97.9 F SBP/DBP: 132/64 Pulse: 57 Resp: 16 NURSING: - Shower allowing shower - Lab Results blood Sugar Check ACHS - Bladder care per protocol - Skin care per protocol ACTIVITIES OOB only with supervision FUNCTIONAL STATUS: - Self-Care A. Eating Ind Ind B. Grooming Ind Ind C. Bathing Ind Ind D. Dressing - Upper Ind Ind E. Dressing - Lower Ind Raven F. Toileting Ind Raven - Sphincter Control G: Bladder control Ind Raven H: Bowel control Ind Ind - Transfers Control I. Bed/Chair/Wheelchair Ind Raven J. Toilet Ind Raven K. Tub/Shower Ind Raven - Locomotion L. Walk/Wheelchair (C) Ind Raven L. Walk/Wheelchair (W) Ind Raven M. Stairs Ind ADNO - Communication N. Comprehension (B) Ind Ind O. Expression (B) Ind Ind - Social Cognition P. Social Interaction Ind Ind Q. Problem Solving Ind Ind R. Memory Ind Ind - Endurance Fair - Balance Fair - Safety Awareness Fair CURRENT FUNC. DEFICITS: Transfers Control, Locomotion, Endurance, Balance, Safety Awareness, and Self-Care MEDICATIONS: - Other See attached MAR (Medication Administration Record) ASSESSMENT: Pt. is a 68 yo Right-handed white male.On 10/02/2018 he was admitted to [facility] with diagnos is Severe L3-L5 spinal stenosis and cauda equina compression (M48.06, G83.4).His impairment category is Spinal Cord Dysfunction 04 - Other Non-traumatic Spinal Cord Dysfunction (04.130).Pre-morbidly, Hannah jacob was independent/mod-I in Self-Care, Sphincter Control, Transfers Control, Locomotion, Communicatio n, and Social Cognition; and he had good Sphincter Control.Currently, he has deficits of Transfers Co ntrol, Locomotion, Endurance, Balance, Safety Awareness, and Self-Care.Pt. is now referred to [facility] for acute in-patient rehabilitation in order to maximize patient's functio nal independence in activities of daily living, strength, ROM, and mobility.- Rehab Goal Patient has realistic goal of being discharged at assistance level 6-Dioni to reside at Home with Fam iza/Relatives. Joselito Rock is a 68 old male that lives in a single ulices house. He was independent with ADLs and BADLs, still driving and doing yard works. Five days before his admission, he noticed having feeling of heaviness and pain on both lower extremities up to the level of hips and continued to worsen. He attempted to walk but he tripped several times and started to have intermittent urinary incontinence and saddle anesthesia. Patients daughter brought him to local ER and CT lumbar spine was negative. On 10/02/2018, persistent urinary incontinence and unable to move his RLE due to heaviness prompted the family to brought him at [facility]. He is now medically stable but in need of 24-hour nursing, doctor supervision and oversite while receiving acti ve and ongoing intensive (PT, reasonably expected to participate in 3hours of therapy a day/15 hours per week and receive care with an intensive interdisciplinary approach.REHAB PLAN: - Physical Therapy Gait dysfunction - to improve, our physical therapists will perform initial evaluation of pt's status upon admission and devise an individualized program for Gait Training, and Wheel Chair mobility Inability to transfer - to improve, our physical therapists will perform initial evaluation of pt's s tatus upon admission and devise an individualized program for Bed mobility Need for home safety evaluation - to improve, our physical therapists will perform initial evaluation of pt's status upon admission and devise an individualized program for Home Evaluation Need in caregiver upon discharge - to improve, our physical therapists will perform initial evaluatio n of pt's status upon admission and devise an individualized program for Caregiver Training New precaution - to improve, our physical therapists will perform initial evaluation of pt's status u leroy admission and devise an individualized program for Patient precaution education Edema - to improve, our physical therapists will perform initial evaluation of pt's status upon admi ssion and devise an individualized program for Elevation Training, and Lymphedema Therapy Poor balance - to improve, our physical therapists will perform initial evaluation of pt's status upo n admission and devise an individualized program for Balance Training Poor endurance - to improve, our physical therapists will perform initial evaluation of pt's status u leroy admission and devise an individualized program for Endurance Training Weakness - to improve, our physical therapists will perform initial evaluation of pt's status upon ad mission and devise an individualized program for Aquatic Therapy, Neuromuscular Reeducation, and Stre ngthening Achieving independence - to improve, our physical therapists will perform initial evaluation of pt's status upon admission and devise an individualized program for Community Reintegration Activities - Occupational Therapy ADL deficits - to improve, our occupation therapists will perform initial evaluation of pt's status u leroy admission and devise an individualized program for Bathing, Bed mobility, Community Reintegration , Cooking, Dressing, Eating, Fine Motor Skills, Grooming, Homemaking, Kitchen Mobility, Laundry, Aiyana ent Education, Safety Awareness, Splinting - Positioning, Transfers(Toilet, Tub, Shower), and Wheel C hair Management Need for care coordinator - to improve, our occupation therapists will perform initial evaluation of pt's s tatus upon admission and devise an individualized program for Caregiver Training Weakness - to improve, our occupation therapists will perform initial evaluation of pt's status upon admission and devise an individualized program for Aquatic Therapy, Balance, Endurance, UE ROM, and U E strengthening MEDICAL PLAN: - Diet Type Start heart healthy - Diet - Liquid Texture Start Regular - Tube Feed Start N/A - Lab Results blood Sugar Check ACHS - Bladder care per protocol - Skin care per protocol - Other See attached MAR (Medication Administration Record) - Diet - Solid Texture Regular - Shower shower DISCHARGE PLAN: - Estimated Length of Stay (days) 16. - Consensus on plan Discharge plan has been discussed with primary caregiver. Patient/Family is in agreement with the delores n. Primary caregiver is in agreement with the plan. - Patient/Family Goals Return home with assistance. - Planned Living Setting Upon Discharge Home, to live with Family/Relatives. SIGNATURE PANEL: (CDT)
--- NOTE | 2018-10-07 17:26 | PAPE ---
PATIENT: [facility] MR# [id number] REFERRING DOCTOR Tony torres EVALUATION DATE AND TIME 10/07/2018 17:25 (CDT) NAME MONAE ROCK DATE OF 1950 AGE 68 PHONE SSN# [id number] GENDER male EVALUATING PHYSICIAN Dr. Eric Wadsworth M.D. ADMISSION DIAGNOSIS: Severe L3-L5 spinal stenosis and cauda equina compression (M48.06, G83.4) ONSET DATE 10/02/2018 SECONDARY/COMORBID DIAGNOSES TIERED: - Non-Tiered Obesity, unspecified (E66.9) - N/A diabetes II chronic kidney disease stage hypertension POST-ADMISSION FUNCTIONAL/MEDICAL STATUS: - Bladder Same Bladder control device used: diaper Same accident frequency: Ind - No accidents in the past 7 days - Bowel Same accident frequency: Ind - No accidents in the past 7 days - Walking Same score based on distance walked: 3(>=150ft) - Wheelchair Same score based on distance traveled: 2(5149ft) STATUS CHANGE EVALUATION: No change in Functional or Medical Status is identified compared with Pre-Admission screening. PATIENT NEEDS CLOSE MEDICAL SUPERVISION BY A REHABILITATION PHYSICIAN FOR: Bowel and Bladder Management Coordination of Treatment Team Diabetes Management Medical and Co-Morbidity Management PATIENT REQUIRES 24X7 REHAB NURSING FOR MEDICAL AND FUNCTIONAL MGT. OF THE FOLLOWING DEFICITS: ADL's Ambulation Bowel and Bladder Management Communication Disease Management Medication Management Patient/Family Education Providing Safe Environment Transfers PATIENT REQUIRES INTENSIVE, COORDINATED INTERDISCIPLINARY APPROACH TO REHAB: Arranging Home Equipment/Services Discharge Planning Family Intervention/Training Vascular Ultrasound Technician/Case Management LIST OF IDENTIFIED AND POTENTIAL PROBLEMS: Alteration in leisure activities Bladder, Incontinence Blood Pressure, Hypertension/hypotension Issues Bowel, Incontinence Diabetes, Hyperglycemia/hypoglycemia Issues Infection, Actual or Potential Mobility Impaired Pain, Alteration in Comfort Self Care Deficit Skin Integrity, Actual or Potential Urinary Tract Infection (UTI), Actual or Potential RISK FOR COMPLICATIONS - Hypertension CVA. Hypotension. PR. TIA. INTERVENTIONS - Hypertension PATIENT COULD BE AT RISK FOR COMPLICATIONS FROM ADVERSE MEDICAL CONDITIONS DUE TO HIS/HER COMORBIDITI ES AND THE RIGORS OF THE INTENSIVE REHABILLITATION PROGRAM. METHODS OR INTERVENTIONS TO AVOID COMPLIC ATIONS INCLUDE: - Infection Clinical staff to assess and manage the signs and symptoms of infection including fever, redness, war mth, etc. - Urinary Tract Infection - Falls Patient will be evaluated for Fall Precautions and will be placed on Fall Precautions as indicated pe r protocol. - Skin Breakdown Nursing will assess skin daily using assessment tool and will place on Skin Breakdown Precautions as indicated per protocol. - Pain Clinical staff may employ non-medication methods such as massage, distraction, decrease stimulus, etc . as needed. Clinical staff will assess patient's pain level every shift per protocol to assess and e nsure pain management effectiveness. Medications will be given and the pain level re-assessed. PRELIMINARY PLAN OF CARE: - Physical Therapy Patient needs Physical Therapy for a daily minimum of 1.5 hours at least 5 out of 7 days, to improve: Mobility, Strengthening, Transfers, Stretching, ROM, Endurance, Ability to manage stairs, Gait, and Balance. - Rehabilitation Nursing Patient requires 24x7 Rehabilitation Nursing for: Pain Issues, Identifying and preventing risk factor s, Monitoring and reporting current medical conditions, Assisting with ambulation and transfer, Ady ting with all ADL-s, Teaching patients about disease process and medications, Family teaching, Provid ing safe environment, Bowel and Bladder Issues, Skin Integrity, and Medication Management. Patient needs Vascular Ultrasound Technician and/or Case Management for: Discharge Planning, Arranging Home Equipmen t or Services, and Family Interventions. - Dietary and Nutrition Services Patient needs Dietary and Nutrition Services for: Adequate Nutrition, Nutritional Supplements, and Nu tritional Education. - Occupational Therapy Patient needs Occupational Therapy for a daily minimum of 1.5 hours at least 5 out of 7 days, to impr ove Activities of Daily Living, including: Eating, Grooming, Bathing, Dressing, Toileting, Toilet Tra nsfers, Community Reintegration, Higher functional activities, Adaptive Equipment, Splinting, Househo ld Tasks, and Other activities as determined. POTENTIAL FUNCTIONAL GOALS FOR PATIENT TO ACHIEVE BY DISCHARGE: - Safety Precaution Patient will remain free from falls or injury at time of discharge. - Bed Mobility Patient will perform bed mobility at 4-Raven level of assistance. - Transfers Patient will complete transfers from bed to chair at 4-Raven level of assistance. - Mobility Patient will ambulate 150 ft with 4-Raven level of assistance with RW. PATIENT REHAB POTENTIAL Denton LOREDO is able and expected to receive 3 hours of individualized therapy daily on at least 5 of every 7 days Denton LOREDO's prognosis for significant practical improvement within a reasonable perio d of time appears Good Expected level of measurable improvement will be of a practical value to WLandon SANDORCLAUS's functional capacity or adaptations to impairments Has a viable Discharge Plan Medically appropriate; condition is sufficiently stable to participate in intensive rehab program DISCHARGE PLAN: - Estimated Length of Stay (days) 16. - Consensus on plan Discharge plan has been discussed with primary caregiver. Patient/Family is in agreement with the delores n. Primary caregiver is in agreement with the plan. - Patient/Family Goals Return home with assistance. - Planned Living Setting Upon Discharge Home, to live with Family/Relatives. CONCLUSION ON REHABILITATION NECESSITY: I have evaluated patient's pre-admission functional status and, comparing it to the patient's post-ad mission functional status now, I conclude that the pre-admission assessment was accurate. Patient's c ondition on admission supports the medical necessity of admission to IR[facility]. It is safe to proceed with patient's therapy program. SIGNATURE PANEL: (CDT)
--- NOTE | 2018-10-07 19:04 | FAST ---
ENCOUNTER DATE AND TIME: 10/07/2018 08:00 (CDT) NAME MONAE ROCK DATE OF : 1950 DATE OF ADMISSION: 10/06/2018 17:57 (CDT) PHONE: AGE: 68 SSN# [id number] GENDER: Male ENCOUNTER PHYSICIAN: Dr. Eric Wadsworth M.D. ADMISSION DIAGNOSIS: - Spinal Cord Dysfunction 04 - Other Non-traumatic Spinal Cord Dysfunction (04.130) Severe L3-L5 spinal stenosis and cauda equina compression (M48.06, G83.4). EATING: Activity did not occur on this shift EATING - SCORE: 0-UNK GROOMING: Activity did not occur on this shift GROOMING - SCORE: 0-UNK BATHING: Activity did not occur on this shift BATHING - SCORE: 0-UNK DRESSING - UPPER BODY: Activity did not occur on this shift Patient is not dressing in public clothing ARTICLES SCORE Total number of steps: 0 DRESSING - UPPER BODY - SCORE: 0-UNK DRESSING - LOWER BODY: Activity did not occur on this shift Patient is not dressing in public clothing ARTICLES SCORE Total number of steps: 0 DRESSING - LOWER BODY - SCORE: 0-UNK TOILETING: Activity did not occur on this shift TOILETING - SCORE: 0-UNK BLADDER MANAGEMENT: Activity did not occur on this shift BLADDER MANAGEMENT - SCORE: 7-IND BOWEL MANAGEMENT: Activity did not occur on this shift BOWEL MANAGEMENT - SCORE: 7-IND TRANSFERS: BED, CHAIR, WHEELCHAIR: TRANSFERS: BED, CHAIR, WHEELCHAIR - STEP 1: Does the patient require assistance of a person or device, or need extra time with bed, chair, or whe elchair transfers? Yes. TRANSFERS: BED, CHAIR, WHEELCHAIR - STEP 2: Does the patient require the assistance of a helper? Yes. TRANSFERS: BED, CHAIR, WHEELCHAIR - STEP 3: How much assistance does the patient require from the helper? Steadying/guiding assistance TRANSFERS: BED, CHAIR, WHEELCHAIR - SCORE: 4-MIN TRANSFERS: TOILET: Activity did not occur on this shift TRANSFERS: TOILET - SCORE: 0-UNK TRANSFERS: SHOWER: Activity did not occur on this shift TRANSFERS: SHOWER - SCORE: 0-UNK TRANSFERS: TUB: Activity did not occur on this shift TRANSFERS: TUB - SCORE: 0-UNK LOCOMOTION: WALK: LOCOMOTION: WALK - STEP 1: Does the patient need help from a person or device, or need extra time to walk 150 feet? Yes. LOCOMOTION: WALK - STEP 2: How much assistance does the patient require to walk a minimum of 150 feet? Only incidental help such as contact guarding or steadying LOCOMOTION: WALK - SCORE: 4-MIN LOCOMOTION: WHEELCHAIR: Activity did not occur on this shift LOCOMOTION: WHEELCHAIR - SCORE: 0-UNK LOCOMOTION: STAIRS: Activity did not occur on this shift LOCOMOTION: STAIRS - SCORE: 0-UNK COMPREHENSION: COMPREHENSION - SCORE: 0-UNK EXPRESSION EXPRESSION - SCORE: 0-UNK SOCIAL INTERACTION: SOCIAL INTERACTION - SCORE: 0-UNK PROBLEM SOLVING: PROBLEM SOLVING - SCORE: 0-UNK MEMORY: MEMORY - SCORE: 0-UNK SIGNATURE PANEL: The following modified sections: Transfers: Bed, Chair, Wheelchair - Score, Transfers: Toilet - Score , Locomotion: Walk - Score, Locomotion: Wheelchair - Score, Locomotion: Stairs - Score were [[email or web address] [email or web address]] signed by Terry Colon PT on WedOct 07 2018 19:03:48 T-0500 (Central Daylight Time)
--- NOTE | 2018-10-08 02:07 | FAST ---
SHIFT START DATE/TIME: 10/07/2018 19:00 (CDT) SHIFT END DATE/TIME: 10/08/2018 07:00 (CDT) NAME MONAE ROCK DATE OF : 1950 DATE OF ADMISSION: 10/06/2018 17:57 (CDT) PHONE: AGE: 68 SSN# [id number] GENDER: Male ENCOUNTER PHYSICIAN: Dr. Eric Wadsworth M.D. ADMISSION DIAGNOSIS: - Spinal Cord Dysfunction 04 - Other Non-traumatic Spinal Cord Dysfunction (04.130) Severe L3-L5 spinal stenosis and cauda equina compression (M48.06, G83.4). EATING: Activity did not occur on this shift EATING - SCORE: 0-UNK GROOMING: Activity did not occur on this shift GROOMING - SCORE: 0-UNK BATHING: Activity did not occur on this shift BATHING - SCORE: 0-UNK DRESSING - UPPER BODY: Patient is not dressing in public clothing ARTICLES SCORE Total number of steps: 0 DRESSING - UPPER BODY - SCORE: 0-UNK DRESSING - LOWER BODY: Patient is not dressing in public clothing ARTICLES SCORE Total number of steps: 0 DRESSING - LOWER BODY - SCORE: 0-UNK TOILETING: Activity did not occur on this shift TOILETING - SCORE: 0-UNK BLADDER MANAGEMENT: [place] performs entire intermittent straight catheterization procedure. BLADDER MANAGEMENT - SCORE: 1-DEP BOWEL MANAGEMENT: Activity did not occur on this shift BOWEL MANAGEMENT - SCORE: 7-IND TRANSFERS: BED, CHAIR, WHEELCHAIR: TRANSFERS: BED, CHAIR, WHEELCHAIR - STEP 1: Does the patient require assistance of a person or device, or need extra time with bed, chair, or whe elchair transfers? Yes. TRANSFERS: BED, CHAIR, WHEELCHAIR - STEP 2: Does the patient require the assistance of a helper? Yes. TRANSFERS: BED, CHAIR, WHEELCHAIR - STEP 3: How much assistance does the patient require from the helper? Steadying/guiding assistance TRANSFERS: BED, CHAIR, WHEELCHAIR - SCORE: 4-MIN TRANSFERS: TOILET: Activity did not occur on this shift TRANSFERS: TOILET - SCORE: 0-UNK TRANSFERS: SHOWER: Activity did not occur on this shift TRANSFERS: SHOWER - SCORE: 0-UNK TRANSFERS: TUB: Activity did not occur on this shift TRANSFERS: TUB - SCORE: 0-UNK LOCOMOTION: WALK: Activity did not occur on this shift LOCOMOTION: WALK - SCORE: 0-UNK LOCOMOTION: WHEELCHAIR: Activity did not occur on this shift LOCOMOTION: WHEELCHAIR - SCORE: 0-UNK COMPREHENSION: COMPREHENSION: TYPE: Both COMPREHENSION - STEP 1: Does the patient require help from a person or device, or need extra time to understand complex and a bstract ideas (such as current events, finances, discharge planning, medical issues, relationships, e tc)? Yes. COMPREHENSION - STEP 2: Does the patient require help to understand questions or statements about basic needs or ideas (such as hunger, thirst, sleep, safety, daily schedule, room location, or discomfort) half or more of the t mareitta? No. COMPREHENSION - STEP 3: How often does the patient need help to understand directions and conversation about basic needs? Les s than 10% of the time COMPREHENSION - SCORE: 5-SUP EXPRESSION EXPRESSION: TYPE: Both EXPRESSION - STEP 1: Does the patient require help from a person or device, or need extra time expressing complex and abst ract ideas (such as current events, finances, discharge planning, medical issues, relationships, etc) ? No. EXPRESSION - STEP 2: Does the patient need extra time, require an assistive device (such as augmentive communication syste m or a communication board), OR does s/he have mild difficulty expressing complex and abstract ideas (including mild dysarthria or mild word-find problems)? Yes. EXPRESSION - SCORE: 6-DAVE SOCIAL INTERACTION: SOCIAL INTERACTION - STEP 1: Does the patient require a helper to interact with others in social and therapeutic situations? No. SOCIAL INTERACTION - STEP 2: Does the patient need extra time in social situations, OR does s/he interact with staff, other patien ts, and family members ONLY in structured environments, OR does s/he require medication for social in teraction? Yes, patient needs extra time SOCIAL INTERACTION - SCORE: 6-DAVE PROBLEM SOLVING: PROBLEM SOLVING - STEP 1: Does the patient need help from a person or device, or need extra time to solve complex problems such as managing a checking account or confronting interpersonal problems? Yes. PROBLEM SOLVING - STEP 2: Does the patient solve basic routine problems half or more of the time? Yes. PROBLEM SOLVING - STEP 3: How often does the patient need help to solve basic routine problems? Less than 10% of the time PROBLEM SOLVING - SCORE: 5-SUP MEMORY: MEMORY - STEP 1: Does the patient need help from a person or device, or need extra time to remember frequently encount ered people, daily routines, and executing requests? Yes. MEMORY - STEP 2: How often does the patient need help to remember frequently encountered people, daily routines, and e xecuting requests? Less than 10% of the time MEMORY - SCORE: 5-SUP
[2018-10-08] MEDS ORDERED: BISACODYL 10 MG RECTAL SUPP PR PRN (03:53)
[2018-10-08] MEDS: TRAMADOL HCL 50 MG TAB PO PRN ×2 (04:21→08:34)
[2018-10-08] MEDS: METOPROLOL XL 50 MG TAB PO SCH (05:21)
[2018-10-08 05:25] VITALS: BMI 30.7
[2018-10-08] MEDS ORDERED: LIDOCAINE 5% PATCH TOP SCH (08:00)
[2018-10-08] MEDS: FENOFIBRATE 160 MG TAB PO SCH (08:35)
[2018-10-08] MEDS: AMLODIPINE 5 MG TAB PO SCH ×2 (08:36→21:40)
[2018-10-08] MEDS: APIXABAN 2.5 MG TABLET PO SCH ×2 (08:36→21:40)
--- NOTE | 2018-10-08 11:01 | FAST ---
SHIFT START DATE/TIME: 10/08/2018 07:00 (CDT) SHIFT END DATE/TIME: 10/08/2018 19:00 (CDT) NAME MONAE ROCK DATE OF : 1950 DATE OF ADMISSION: 10/06/2018 17:57 (CDT) PHONE: AGE: 68 N# [id number] GENDER: Male ENCOUNTER PHYSICIAN: Dr. Eric Wadsworth M.D. ADMISSION DIAGNOSIS: - Spinal Cord Dysfunction 04 - Other Non-traumatic Spinal Cord Dysfunction (04.130) Severe L3-L5 spinal stenosis and cauda equina compression (M48.06, G83.4). EATING: EATING - STEP 1: Does the patient require the assistance of a person or device, or need extra time when eating? Yes. EATING - STEP 2: Does the patient require the assistance of a helper? Yes. EATING - STEP 3: Does the patient perform half or more of the eating tasks? Yes. EATING - STEP 4: Does the patient need only supervision, cuing, coaxing OR help to apply an orthosis OR help to cut fo od, open containers, pour liquids, or butter bread? Yes. EATING - SCORE: 5-SUP GROOMING: Activity did not occur on this shift GROOMING - SCORE: 0-UNK BATHING: Activity did not occur on this shift BATHING - SCORE: 0-UNK DRESSING - UPPER BODY: Activity did not occur on this shift ARTICLES SCORE Total number of steps: 0 DRESSING - UPPER BODY - SCORE: 0-UNK DRESSING - LOWER BODY: Activity did not occur on this shift ARTICLES SCORE Total number of steps: 0 DRESSING - LOWER BODY - SCORE: 0-UNK TOILETING: TOILETING - STEP 1: Does the patient require the assistance of a person or device, or need extra time with toileting? Yes . TOILETING - STEP 2: Does the patient require the assistance of a helper? Yes. TOILETING - STEP 3: How much assistance does the patient require from the helper? Hands-on assistance from the helper TOILETING - STEP 4: Of the 3 tasks: 1) Adjusting clothing prior to use, 2) Cleansing of perineal area, 3) Adjusting clot cindy after use; How many tasks does the patient perform WITHOUT assistance of the helper? Three tasks with steadying assistance from the helper TOILETING - SCORE: 4-MIN BLADDER MANAGEMENT: Patient depends entirely on nursing staff for timed void program (helper reminds patient each time to go to bathroom for timed void program). BLADDER MANAGEMENT - SCORE: 1-DEP BOWEL MANAGEMENT: Suppository: Hayden positions patient, places a pad, lubricates and inserts the suppository, provides digital stimulation, places patient on bedpan, and takes patient off of bedpan. BOWEL MANAGEMENT - SCORE: 1-DEP TRANSFERS: BED, CHAIR, WHEELCHAIR: TRANSFERS: BED, CHAIR, WHEELCHAIR - STEP 1: Does the patient require assistance of a person or device, or need extra time with bed, chair, or whe elchair transfers? Yes. TRANSFERS: BED, CHAIR, WHEELCHAIR - STEP 2: Does the patient require the assistance of a helper? Yes. TRANSFERS: BED, CHAIR, WHEELCHAIR - STEP 3: How much assistance does the patient require from the helper? Steadying/guiding assistance TRANSFERS: BED, CHAIR, WHEELCHAIR - SCORE: 4-MIN TRANSFERS: TOILET: TRANSFERS: TOILET - STEP 1: Does the patient require the assistance of a person or device, or need extra time with toilet transfe rs? Yes. TRANSFERS: TOILET - STEP 2: Does the patient require the assistance of a helper? Yes. TRANSFERS: TOILET - STEP 3: How much assistance does the patient require from the helper? Patient performs half or more of the tr ansferring tasks TRANSFERS: TOILET - STEP 4: Does the patient need only incidental help such as contact guard or steadying during toilet transfer? Yes. TRANSFERS: TOILET - SCORE: 4-MIN TRANSFERS: SHOWER: Activity did not occur on this shift TRANSFERS: SHOWER - SCORE: 0-UNK TRANSFERS: TUB: Activity did not occur on this shift TRANSFERS: TUB - SCORE: 0-UNK LOCOMOTION: WALK: Activity did not occur on this shift LOCOMOTION: WALK - SCORE: 0-UNK LOCOMOTION: WHEELCHAIR: Activity did not occur on this shift LOCOMOTION: WHEELCHAIR - SCORE: 0-UNK COMPREHENSION: COMPREHENSION: TYPE: Both COMPREHENSION - STEP 1: Does the patient require help from a person or device, or need extra time to understand complex and a bstract ideas (such as current events, finances, discharge planning, medical issues, relationships, e tc)? No. COMPREHENSION - STEP 2: Does the patient need extra time, require an assistive device (such as glasses for visual comprehensi on or a hearing aid for auditory comprehension) or does s/he have mild difficulty understanding compl ex and abstract information? Yes. COMPREHENSION - SCORE: 6-DAVE EXPRESSION EXPRESSION: TYPE: Both EXPRESSION - STEP 1: Does the patient require help from a person or device, or need extra time expressing complex and abst ract ideas (such as current events, finances, discharge planning, medical issues, relationships, etc) ? No. EXPRESSION - STEP 2: Does the patient need extra time, require an assistive device (such as augmentive communication syste m or a communication board), OR does s/he have mild difficulty expressing complex and abstract ideas (including mild dysarthria or mild word-find problems)? Yes. EXPRESSION - SCORE: 6-DAVE SOCIAL INTERACTION: SOCIAL INTERACTION - STEP 1: Does the patient require a helper to interact with others in social and therapeutic situations? No. SOCIAL INTERACTION - STEP 2: Does the patient need extra time in social situations, OR does s/he interact with staff, other patien ts, and family members ONLY in structured environments, OR does s/he require medication for social in teraction? Yes, patient needs extra time SOCIAL INTERACTION - SCORE: 6-DAVE PROBLEM SOLVING: PROBLEM SOLVING - STEP 1: Does the patient need help from a person or device, or need extra time to solve complex problems such as managing a checking account or confronting interpersonal problems? No. PROBLEM SOLVING - STEP 2: Does the patient require extra time to make decisions or solve problems, OR does s/he have slight dif ficulty reading, initiating, or self-correcting in unfamiliar situations? Yes, patient needs extra ti me. PROBLEM SOLVING - SCORE: 6-DAVE MEMORY: MEMORY - STEP 1: Does the patient need help from a person or device, or need extra time to remember frequently encount ered people, daily routines, and executing requests? No. MEMORY - STEP 2: Does the patient have slight difficulty recognizing frequently encountered people, daily routines, or executing requests without the need for repetition or using self-initiated or environmental cues to remember? Yes. MEMORY - SCORE: 6-DAVE SIGNATURE PANEL: The following modified sections: Eating - Score, Grooming - Score, Bathing - Score, Dressing - Upper Body - Score, Dressing - Lower Body - Score, Toileting - Score, Bladder Management - Score, Bowel Man agement - Score, Transfers: Bed, Chair, Wheelchair - Score, Transfers: Toilet - Score, Transfers: Deanne wer - Score, Transfers: Tub - Score, Locomotion: Walk - Score, Locomotion: Wheelchair - Score, Compre hension - Score, Expression - Score, Social Interaction - Score, Problem Solving - Score, Memory - Sc ore were [electronically] signed by Alex Centeno on Sat Oct 08 2018 11:01:12 GMT-0500 (Central Daylight Time)
[2018-10-08] MEDS: DOCUSATE NA/SENNA CONC 1 TAB PO SCH ×2 (11:29→21:39)
[2018-10-08] MEDS: dexAMETHasone 4 MG/ML VIAL IV SCH ×3 (13:30→21:40)
--- NOTE | 2018-10-08 13:50 | DS ---
Date of Discharge: 10/08/2018 Disposition: Transferred to [facility] in [place]. Physical Examination: HEENT: Unremarkable. Lungs: Clear to auscultation. Heart: Sounds normal. Abdomen: Soft. Bowel sounds normal. No guarding, rigidity, tenderness, or distention. Extremities: No leg edema. Neuro: Unchanged from yesterday which is significant for right footdrop and impaired sensation to right foot. Discharge Diagnoses: 1. Lumbar spinal stenosis. 2. Neurogenic bladder secondary to above. 3. Right foot drop secondary to above. 4. Hypertension. 5. Hyperlipidemia. 6. Benign prostatic hypertrophy. 7. Diverticulosis. 8. Chronic kidney disease, stage 3. Hospital Course: This is a 68-year-old male patient who was brought into our rehab floor on 10/06/2018 from [facility] in [place]. Please see dictated H and P for more information. After patient arrived to our hospital , I was not notified until yesterday evening and I did see him yesterday evening about this patient and that was the first time I was made aware of this patient's presence at our hospital, so I did evaluate him yesterday evening. I reviewed available records from [place] and today I did communicate with Dr. Wadsworth, neurologist on our rehab floor, and details were discussed with him. Dr. Wadsworth and myself, we both feel like that it is not safe for patient to wait for a long period of time before having any surgical intervention and in our opinion, the patient should be at the tertiary care center like [facility] where he needs to be evaluated for a surgical intervention to be performed as soon as possible instead of waiting to do elective surgery to avoid any kind of permanent neurological damage as he already has neurogenic bladder problem and having some bowel issues. So, with all these concerns, we both agree that the patient should be sent back to the hospital where he came from and assistant executive housekeeper was contacted to initiate the transfer and Dr. Wadsworth did communicate with the hospitalist, neurologist, and neurosurgeon at [facility] today and the patient was accepted and he will be transferred via ground ambulance. Patient's daughter was contacted and details were discussed with her regarding our recommendation to send him back to [place] at [facility] and she understands and agrees with this plan. I did try to reach out to patient's daughter, but she was not available and assistant executive housekeeper will continue to try to communicate with her, but assistant executive housekeeper did inform the patient about our recommendation. BENNY/WILMAR Voice ID: [id number] Report ID: [id number] MTDD
[2018-10-08 19:41] VITALS: BP 141/67; TEMP 97.2
--- NOTE | 2018-10-08 21:09 | HP ---
Date of Admission: 10/07/2018 Chief Complaint: Admitted for rehab therapy. History Of Present Illness: This is a 68-year-old very pleasant patient of mine who was admitted to rehab floor on 10/06/2018 and unfortunately I was not notified as nurses on the rehab did not realize this was my patient when he was admitted or even prior to admission. Today, after they realized that he was my patient, I was contacted and within 30 minutes or so after receiving this phone call, I went to rehab to see the patient and started to learn the information about actually what happened. Patient came into our emergency room with complaints of legs feeling heavy, some pain in his leg, some tingling, numbness type of problem and not able to walk. Also had some back pain at that time. So he came into the emergency room on 09/21/2018 and the patient's daughter informed me that since he was not able to walk, she brought him in the emergency room and he was brought in wheelchair. After he was evaluated in the ER, he was released to go home with oral steroid medication after workup done in our emergency room and when he was released, he went out of emergency room in wheelchair and went back home. After he went home, he continued to have problem with his legs and symptoms got worse, so daughter took him to [facility] in [place] that was during beginning of the week and he stayed there for few days until 10/06/2018. He was released from [facility] to our rehab floor for inpatient rehab therapy. Patient had workup done at that hospital and I have reviewed that available record and at some point I thought it was transverse myelitis. Patient had a CAT scan of thoracic spine, lumbar spine; MRI of thoracic spine and lumbar spine and then lumbar puncture. Eventually, it was diagnosed that the patient has severe lumbar spinal stenosis and he was given IV steroid while he was in [place] at [facility], but when he was released to our facility, there was no order to continue any further IV steroid. Patient also lost bladder control. He requires intermittent bladder catheterization with this leg symptoms and that started while he was in hospital in [place]. Denies any fever, chills, nausea, vomiting. Has some constipation problem. Allergies: NO KNOWN ALLERGIES. Medications: Current medications list reviewed at home. He takes amlodipine 5 mg twice a day, Toprol-XL 100 mg daily, Tricor 145 mg p.o. daily. Review of Systems: HOSPITAL PRODUCT SPECIALIST: As mentioned above. Genitourinary: As mentioned above. GI: As mentioned above. All other systems reviewed and negative. Past Medical History: Significant for hypertension; hyperlipidemia; chronic kidney disease, stage III; diverticulosis; benign prostatic hypertrophy. 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 Family History: Significant for father with lung cancer. Mother with cirrhosis of liver due to alcohol use. Siblings with hypertension and leukemia. Social History: Negative for smoking, alcohol use. Physical Examination: Vital Signs: Today, last temperature 96.9, pulse 57, blood pressure 132/64, respiratory rate 18, oxygen saturation 96%. General: Awake, alert, oriented, not in distress. HEENT: Head atraumatic, normocephalic. Conjunctivae nonerythematous. Sclerae white. Mouth, no thrush or edema noted. Ears/Nose, no mass, lesion, discharge noted. Neck: Supple. No JVD, lymph nodes, bruit, thyromegaly noted. Lungs: Bilateral good equal air entry. Clear to auscultation. No rhonchi. No rales. Heart: Normal heart sounds, no murmur or gallop. Abdomen: Soft, bowel sounds normal. No guarding, rigidity, tenderness, mass, hepatosplenomegaly, distention, or bruit noted. Extremities: No leg edema. No calf tenderness. Skin: No rash, ulcer, cellulitis. Lymphatics: No lymph node enlargement in neck, supraclavicular, infraclavicular region. Neuro: Patient has normal power in both upper extremity and both lower extremity except has right footdrop. He also has impaired touch sensation on the right foot. Chest: Unremarkable. External Genitalia: Deferred. Rectal: Deferred. Laboratory Data: This morning, white count 6.6, hemoglobin 13, platelets 217. Sodium 142, potassium 4.6, chloride 107, bicarb 30, BUN 54, creatinine 1.79, glucose 128, magnesium 2.7, albumin 2.7. Urinalysis, wbc less than 5, bacteria less than 20, 3+ blood, 2+ glucose. Impression: 1. Lumbar spinal stenosis. 2. Neurogenic bladder secondary to above. 3. Right footdrop secondary to above. 4. Hypertension. 5. Hyperlipidemia. 6. Benign prostatic hypertrophy. 7. Diverticulosis. 8. Chronic kidney disease, stage 3. 9. Constipation. Plan: Admit patient to hospital for further evaluation and management of this problem to rehab floor. I have reviewed available record from [place] including CAT scan and MRI of thoracic and lumbar spine. I will communicate details with Dr. Wadsworth. Continue home medications per order. DVT prophylaxis will be given per order and Dr. Wadsworth will manage physical therapy part. I will see him tomorrow morning for followup. BENNY/WILMAR Voice ID: [id number] MTDD
== END 2018-10-08 22:10 | disposition short-term general hospital (02) | DRG 552 ==
LOC: 5TH 17:57
PROVIDERS: ADMIT Internal Medicine; ATTEND Internal Medicine
DX: M48.061 Spinal stenosis, lumbar region without neurogenic claudication (principal); E66.9 Obesity, unspecified; Z68.30 Body mass index [BMI] 30.0-30.9, adult; E11.22 Type 2 diabetes mellitus with diabetic chronic kidney disease; I12.9 Hypertensive chronic kidney disease with stage 1 through stage 4 chronic kidney disease, or unspecified chronic kidney disease; N18.9 Chronic kidney disease, unspecified; N31.9 Neuromuscular dysfunction of bladder, unspecified; M21.371 Foot drop, right foot; E78.5 Hyperlipidemia, unspecified; N40.0 Benign prostatic hyperplasia without lower urinary tract symptoms; K57.90 Diverticulosis of intestine, part unspecified, without perforation or abscess without bleeding; N18.3 Chronic kidney disease, stage 3 (moderate); K59.00 Constipation, unspecified
CPT/HCPCS: 36415; 80048; 81001; 82040; 83735; 84134; 85025; 87086; 87088; 97110; 97116; 97161; 97530

== ENCOUNTER 2018-10-26 20:44 | Inpatient (IN) | payer OTHER ==
--- OUTSIDE RECORDS SUMMARY | 2018-10-27 09:45 | XMS REPORT ---
:1950 [facility] Address [address] [place] [address] Dr. Lopez [address] [place] [id number] Care Team Providers Name Role Phone Unavailable Unavailable Unavailable Problems This patient has no known problems. Allergies, Adverse Reactions, Alerts This patient has no known allergies or adverse reactions. Medications This patient has no known medications. Encounters Start End Encounter Admission Attending Care Care Encounter Date/Time Date/Time Type Type Clinicians Facility Department ID 2018-10-08 Inpatient [facility] [id number] 23:06:00 2018-10-02 2018-10-01 Inpatient [facility] [id number] 03:49:00 18:34:00
[2018-10-27] MEDS ORDERED: ACETAMINOPHEN 325 MG TABLET PO PRN (11:31)
[2018-10-27] MEDS ORDERED: POLYETHYL GLY 3350 17 GM/DOSE PO PRN (11:31)
[2018-10-27] MEDS ORDERED: BISACODYL 10 MG RECTAL SUPP PR PRN (11:31)
[2018-10-27] MEDS: FAMOTIDINE 20 MG TAB PO SCH (12:31)
[2018-10-27] MEDS: BETHANECHOL 5 MG PO SCH ×2 (13:40→19:54)
[2018-10-27] MEDS: HEPARIN 5000 UNIT/ML 1 ML VIAL SQ SCH (18:01)
[2018-10-27] MEDS: AMLODIPINE 5 MG TAB PO SCH (19:53)
[2018-10-27] MEDS: DOCUSATE NA/SENNA CONC 1 TAB PO SCH (19:54)
[2018-10-28] MEDS: METOPROLOL XL 100 MG TAB PO SCH (05:04)
[2018-10-28] MEDS: HEPARIN 5000 UNIT/ML 1 ML VIAL SQ SCH ×2 (06:05→18:13)
[2018-10-28 06:41] LABS: Absolute Lymphocytes (CBC) 0.8 K/uL (0.7-4.9); Basophils % 0.9 % (0-1.3); Hematocrit 27.9 % (39.6-49.0); Lymphocytes % 21.7 % (15.3-44.8); MPV 7.9 fL (7.6-11.3); RBC Red Blood Cell Count 3.04 M/uL (4.33-5.43)
[2018-10-28 06:57] LABS: Albumin 1.8 g/dL (3.4-5.0); Magnesium 2.3 mg/dL (1.8-2.4); Prealbumin 7.4 mg/dL (20-40)
[2018-10-28] MEDS: AMLODIPINE 5 MG TAB PO SCH ×2 (07:56→19:14)
[2018-10-28] MEDS: FAMOTIDINE 20 MG TAB PO SCH (07:56)
[2018-10-28] MEDS: FENOFIBRATE 160 MG TAB PO SCH (07:56)
[2018-10-28] MEDS: levoFLOXacin 750 MG TAB PO SCH (07:56)
[2018-10-28] MEDS: BETHANECHOL 5 MG PO SCH ×3 (08:19→21:00)
[2018-10-28] MEDS: FERROUS SULFATE 325 MG TAB PO SCH (08:40)
[2018-10-28] MEDS: FE SULF/FA/VIT B COMP & C TAB PO SCH (08:40)
[2018-10-28] MEDS: PROMOD 30 ML DOSE PO SCH ×2 (08:40→19:14)
--- NOTE | 2018-10-28 10:01 | P.RH.PN ---
Estimated Length of Stay: 14 Expected Discharge Date: 11/08/18 Discharge Disposition Plan: Home Family Support: Yes Snf Goal: Mobility, Transfers, Self Care Vital Signs: Last Vital Signs Temp 97.8 F 10/28/18 06:51 Pulse 74 10/28/18 07:56 Resp 18 10/28/18 06:51 BP 116/63 10/28/18 07:56 Pulse Ox 95 10/28/18 06:51 Laboratory: Laboratory Last Values WBC 3.6 K/uL (4.3-10.9) L 10/28/18 06:18 RBC 3.04 M/uL (4.33-5.43) L 10/28/18 06:18 Hgb 9.9 g/dL (13.6-17.9) L 10/28/18 06:18 Hct 27.9 % (39.6-49.0) L 10/28/18 06:18 MCV 91.9 fL (80-100) 10/28/18 06:18 MCH 32.5 pg (27.0-35.0) 10/28/18 06:18 MCHC 35.4 g/dL (32.0-36.0) 10/28/18 06:18 RDW 13.2 % (12.1-15.2) 10/28/18 06:18 Plt Count 369 K/uL (152-406) D 10/28/18 06:18 MPV 7.9 fL (7.6-11.3) 10/28/18 06:18 Neutrophils % 67.6 % (41.7-73.7) 10/28/18 06:18 Lymphocytes % 21.7 % (15.3-44.8) 10/28/18 06:18 Monocytes % 8.3 % (3.3-12.3) 10/28/18 06:18 Eosinophils % 1.5 % (0-4.4) 10/28/18 06:18 Basophils % 0.9 % (0-1.3) 10/28/18 06:18 Absolute Neutrophils 2.4 K/uL (1.8-8.0) 10/28/18 06:18 Absolute Lymphocytes 0.8 K/uL (0.7-4.9) 10/28/18 06:18 Absolute Monocytes 0.3 K/uL (0.1-1.3) 10/28/18 06:18 Absolute Eosinophils 0.1 K/uL (0-0.5) 10/28/18 06:18 Absolute Basophils 0.0 K/uL (0-0.5) 10/28/18 06:18 Sodium 140 mmol/L (136-145) 10/28/18 06:18 Potassium 4.0 mmol/L (3.5-5.1) 10/28/18 06:18 Chloride 106 mmol/L (98-107) 10/28/18 06:18 Carbon Dioxide 26 mmol/L (21-32) 10/28/18 06:18 BUN 30 mg/dL (7-18) H 10/28/18 06:18 Creatinine 1.98 mg/dL (0.55-1.3) H 10/28/18 06:18 Estimated GFR 34 mL/min (=/>90) L 10/28/18 06:18 Glucose 88 mg/dL (74-106) 10/28/18 06:18 Calcium 7.6 mg/dL (8.5-10.1) L 10/28/18 06:18 Magnesium 2.3 mg/dL (1.8-2.4) 10/28/18 06:18 Albumin 1.8 g/dL (3.4-5.0) L 10/28/18 06:18 Prealbumin 7.4 mg/dL (20-40) L 10/28/18 06:18 Weight: 196 lb 1.6 oz Wound Present: No Closed Surgical Incision Present: No Negative Pressure Wound Therapy Present: No Physician Update: Labs reviewed and the prealbumin is very low at 7.4. 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 Will push free water and increase protein intake. He has mild to moderate lower extremity edema. Will use BARRY hose bilaterally. He is making fair overall progress but he is limited by severe lower lumbar spinal stenosis and needs possible surgery for decompression. Medical Issues: DVT - Heparin 5,000 units SQ Q12H Functional Improvement: pt presents with moderate <-> severe strength deficits in the R LE. pt exhibits mild strength deficits in the L LE. pt demonstrates reduced balance and stability during ambulation and functional transfers. pt experiences numbness and pain in the R LE. pt experiences reduced tolerance to functional activity due to fatigue. Skilled PT services are necessary to address the above mentioned impairments and functional limitations. Functional Improvement Occupational Therapy: No c/o pain during session, except for weakness. Patient is very participatory and motivated to improve his current level of function to meet the LTG as set in POC prior to a safe d/c home. Speech Therapy Update: Pt presents with mild cognitive impairments in the setting of decreased education and history of learning (reading) disability. Patient requires occasional repetition due to hearing and/or processing impairments. Patient exhibits decreased mental flexibility, ability to solve problems, and impaired sequencing. He would benefit from ST to address aforementioned deficits in order to optimize functional independence and decrease risk for falls/injuries associated with medical/physical issues/ limitations. Summary: Patient's care plan and detention goals have been reviewed and revised as necessary. Please see the Rehabilitation Signature page for all necessary signatures.
--- NOTE | 2018-10-28 19:01 | PN ---
Date of Progress Note: 10/28/2018 Subjective: Patient was seen this morning for followup. He was sitting in wheelchair. No new compl aints or problems reported. Objective: Vital Signs: Reviewed. HEENT: Unremarkable. Lungs: Clear to auscultation. Heart: Heart sounds normal. Abdomen: Soft. Bowel sounds normal. No guarding, rigidity, tenderness, or distention. Extremities: No leg edema. Impression: 1.Lumbar spinal stenosis. 2.Neurogenic bladder secondary to above. 3.Right footdrop secondary to above. 4.Chronic kidney disease, stage 3. 5.Anemia. 6.Hypertension. Plan: Continue current medications. We will continue DVT prophylaxis. Continue to follow with Dr. Wadsworth for physical therapy and I will see him tomorrow for followup. BENNY/MODL Voice ID: [id number] Report ID: [id number]
[2018-10-28] MEDS: DOCUSATE NA/SENNA CONC 1 TAB PO SCH (20:59)
[2018-10-29] MEDS: METOPROLOL XL 100 MG TAB PO SCH (05:11)
[2018-10-29] MEDS: HEPARIN 5000 UNIT/ML 1 ML VIAL SQ SCH ×2 (08:33→18:27)
[2018-10-29] MEDS: FAMOTIDINE 20 MG TAB PO SCH (08:37)
[2018-10-29] MEDS: FERROUS SULFATE 325 MG TAB PO SCH (08:37)
[2018-10-29] MEDS: FENOFIBRATE 160 MG TAB PO SCH (08:37)
--- NOTE | 2018-10-29 08:37 | HP ---
Date of Admission: 10/26/2018 Reason For Admission: For rehab therapy. Chief Complaint: DICTATION ENDS HERE BENNY/MODL Voice ID: [id number]
[2018-10-29] MEDS: FE SULF/FA/VIT B COMP & C TAB PO SCH (08:38)
[2018-10-29] MEDS: AMLODIPINE 5 MG TAB PO SCH ×2 (08:38→20:00)
[2018-10-29] MEDS: BETHANECHOL 5 MG PO SCH ×4 (08:39→20:35)
[2018-10-29] MEDS: PROMOD 30 ML DOSE PO SCH ×2 (08:43→20:33)
--- NOTE | 2018-10-29 16:04 | PN ---
Subjective: Patient was seen this morning for followup. He was sitting in shower chair. Denied any complaints. Had a bowel movement yesterday. No abdominal pain. No nausea. No vomiting. No short ness of breath. Objective: Vital Signs: Reviewed. HEENT: Unremarkable. Lungs: Clear to auscultation. Heart: Sounds normal. Abdomen: Soft. Bowel sounds normal. No guarding, rigidity, tenderness, distention. Extremities: No leg edema. Impression: 1.Lumbar spinal stenosis. 2.Neurogenic bladder secondary to above. 3.Right footdrop secondary to above. 4.Chronic kidney disease, stage 3. 5.Anemia. Plan: We will continue current medications. We will go ahead and continue to provide physical thera py under guidance of Dr. Wadsworth and patient reports that he has appointment coming up on Wednesday to go back to [place] to follow up with the neurologist/back specialist to decide further plan of treatm ent. BENNY/WILMAR Voice ID: [id number] Report ID: [id number]
[2018-10-29] MEDS: DOCUSATE NA/SENNA CONC 1 TAB PO SCH (20:33)
[2018-10-30] MEDS: METOPROLOL XL 100 MG TAB PO SCH (05:26)
[2018-10-30] MEDS: levoFLOXacin 750 MG TAB PO SCH (08:27)
[2018-10-30] MEDS: FE SULF/FA/VIT B COMP & C TAB PO SCH (08:27)
[2018-10-30] MEDS: AMLODIPINE 5 MG TAB PO SCH ×2 (08:27→20:34)
[2018-10-30] MEDS: FENOFIBRATE 160 MG TAB PO SCH (08:27)
[2018-10-30] MEDS: FERROUS SULFATE 325 MG TAB PO SCH (08:27)
[2018-10-30] MEDS: FAMOTIDINE 20 MG TAB PO SCH (08:28)
[2018-10-30] MEDS: PROMOD 30 ML DOSE PO SCH ×2 (08:30→20:00)
[2018-10-30] MEDS: BETHANECHOL 5 MG PO SCH ×3 (09:00→20:36)
[2018-10-30] MEDS: HEPARIN 5000 UNIT/ML 1 ML VIAL SQ SCH ×2 (09:00→18:25)
--- NOTE | 2018-10-30 10:21 | PN ---
Date of Progress Note: 10/30/2018 Subjective: The patient was sitting in the wheelchair. Denied any complaints. Objective: Vital Signs: Reviewed. HEENT: Examination unremarkable. Lungs: Clear to auscultation. Heart: Sounds normal. Abdomen: Soft. Bowel sounds normal. No guarding, rigidity, tenderness, distention. Extremities: No leg edema. Impression: 1.Lumbar spinal stenosis. 2.Neurogenic bladder secondary to above. 3.Right footdrop secondary to above. 4.Chronic kidney disease, stage 3. 5.Anemia. Plan: We will continue current medications. The patient was advised to drink about 40 to 50 ounce w ater a day. Physical therapy to be continued under guidance of Dr. Wadsworth. We will continue [facility]. I will see him tomorrow for followup. The patient reports that he has appoin tment coming up this Wednesday to go back to [place]. BENNY/MODL Voice ID: [id number] Report ID: [id number]
[2018-10-30] MEDS: DOCUSATE NA/SENNA CONC 1 TAB PO SCH (20:35)
[2018-10-31] MEDS: METOPROLOL XL 100 MG TAB PO SCH (05:37)
[2018-10-31 06:57] LABS: Absolute Lymphocytes (CBC) 1.2 K/uL (0.7-4.9); Hematocrit 28.2 % (39.6-49.0); Lymphocytes % 22.8 % (15.3-44.8); MPV 7.4 fL (7.6-11.3); RBC Red Blood Cell Count 3.07 M/uL (4.33-5.43)
[2018-10-31] MEDS: HEPARIN 5000 UNIT/ML 1 ML VIAL SQ SCH ×2 (07:00→18:03)
[2018-10-31 07:07] LABS: Potassium 4.2 mmol/L (3.5-5.1)
[2018-10-31] MEDS: FE SULF/FA/VIT B COMP & C TAB PO SCH (08:00)
[2018-10-31] MEDS: PROMOD 30 ML DOSE PO SCH ×3 (08:00→20:30)
[2018-10-31] MEDS: AMLODIPINE 5 MG TAB PO SCH ×2 (08:17→20:18)
[2018-10-31] MEDS: FENOFIBRATE 160 MG TAB PO SCH (08:17)
[2018-10-31] MEDS: FAMOTIDINE 20 MG TAB PO SCH (08:17)
[2018-10-31] MEDS: FERROUS SULFATE 325 MG TAB PO SCH (08:18)
[2018-10-31] MEDS: BETHANECHOL 5 MG PO SCH ×3 (08:19→20:19)
[2018-10-31] MEDS ORDERED: levoFLOXacin 750 MG TAB PO SCH (10:00)
--- NOTE | 2018-10-31 15:21 | RAD REPORT ---
EXAM DESCRIPTION: US - Extrem Venous W Compress Fco - 10/31/2018 2:43 pm CLINICAL HISTORY: leg edema Bilateral leg edema and swelling. COMPARISON: No comparisons TECHNIQUE: Real-time sonographic interrogation of the left and right lower extremity deep venous sys tems was performed. FINDINGS: Normal compressibility, flow augmentation, phasic flow and spontaneous flow is identified in both the left and right lower extremity deep venous systems. IMPRESSION: No sonographic evidence of left or right lower extremity deep venous thrombosis.
[2018-10-31] MEDS: DOCUSATE NA/SENNA CONC 1 TAB PO SCH (20:19)
--- NOTE | 2018-11-01 00:15 | PN ---
Date of Progress Note: 10/31/2018 Subjective: Patient was seen this morning for followup. He was lying in bed, not in any distress. Denied any new complaints. Nurse reported that during daytime, patient had only about 300 cc of urin e output or so, but during fast food shift lead, he had approximately 1500 cc urine output. He also had some leg swelling during daytime yesterday and overnight, his legs were elevated, and this morning, leg sw elling is still present but better than yesterday as reported by nursing staff. Objective: Vital Signs: Reviewed. Intake/output records reviewed. HEENT: Unremarkable. Lungs: Clear to auscultation. Heart: Sounds normal. Abdomen: Soft. Bowel sounds normal. No guarding, rigidity, tenderness, or distention. Extremities: Bilateral grade 1 pedal edema present. Impression: 1.Leg edema. 2.Chronic kidney disease, stage 3. 3.Anemia. 4.Lumbar spinal stenosis. 5.Neurogenic bladder secondary to above. 6.Right footdrop secondary to above. Plan: We will continue heparin for DVT prophylaxis. We will get a venous Doppler of both lower extr emity and blood work per order and we will see him tomorrow for followup. Continue physical therapy per Dr. Wadsworth. BENNY/MODL Voice ID: [id number] Report ID: [id number]
[2018-11-01] MEDS: METOPROLOL XL 100 MG TAB PO SCH (04:59)
[2018-11-01] MEDS: HEPARIN 5000 UNIT/ML 1 ML VIAL SQ SCH ×2 (07:00→17:56)
[2018-11-01 07:07] LABS: Potassium 4.3 mmol/L (3.5-5.1)
[2018-11-01] MEDS: FENOFIBRATE 160 MG TAB PO SCH (08:09)
[2018-11-01] MEDS: AMLODIPINE 5 MG TAB PO SCH ×2 (08:09→19:52)
[2018-11-01] MEDS: FERROUS SULFATE 325 MG TAB PO SCH (08:09)
[2018-11-01] MEDS: FE SULF/FA/VIT B COMP & C TAB PO SCH (08:10)
[2018-11-01] MEDS: FAMOTIDINE 20 MG TAB PO SCH (08:10)
[2018-11-01] MEDS: PROMOD 30 ML DOSE PO SCH ×2 (08:11→19:52)
[2018-11-01] MEDS: BETHANECHOL 5 MG PO SCH ×2 (08:13→13:03)
[2018-11-01] MEDS: levoFLOXacin 750 MG TAB PO SCH (12:08)
--- NOTE | 2018-11-01 18:35 | P.CNS ---
Date of Consult: 11/01/18 Reason for Consult: painful toenails Chief Complaint: Painful toenails x 10 Allergies chlorhexidine Allergy (Verified 10/26/18 22:34) Itching/Hives/Rash Home Medications: Amlodipine [Norvasc] 5 mg PO BID 10/07/18 Acetaminophen [Tylenol -Tablet] 650 mg PO Q6HP PRN 10/26/18 Bethanechol Chloride 5 mg PO TID 10/26/18 Bisacodyl [Dulcolax] 10 mg RC DAILY PRN 10/26/18 Ergocalciferol (Vitamin D2) [Vitamin D2] 50,000 unit PO SEECOM 10/26/18 Famotidine [Pepcid] 20 mg PO BID 10/26/18 Fenofibrate [Tricor] 160 mg PO DAILY 10/26/18 Metoprolol Tartrate [Lopressor] 100 mg PO DAILY 10/26/18 Polyethylene Glycol 3350 17 gm PO DAILY 10/26/18 Sennosides [Senna] 2 tab PO BID 10/26/18 - Past Medical/Surgical History Diabetic: No -: CKD -: HTN -: HLD -: aneurysm clipping -: left shoulder surgery - Family History Brother Medical History: Cancer, Liver disease Notes: - Social History Alcohol use: No CD- Drugs: No Caffeine use: No Place of Residence: Home Review of Systems 10-point ROS is otherwise unremarkable Physical Examination Temp Pulse Resp BP Pulse Ox 97.0 F 74 14 124/66 98 11/01/18 07:22 11/01/18 08:09 11/01/18 07:22 11/01/18 08:09 11/01/18 07:22 General: Alert, In no apparent distress, Oriented x3 Cardiovascular: No edema, Abnormal pulses (nonpalpable pedal pulses bilateral lower extremity) Capillary refill: >2 Seconds Musculoskeletal: No clubbing, No swelling, No contractures, No erythema, No tenderness, No warmth Integumentary: Other (Thickened hypertrophic nails with subungual debris x 10. Absent hair growth.) Neurological: Sensation intact Laboratory Data (last 24 hrs) 11/01/18 06:28: Sodium 142, Potassium 4.3, BUN 35 H, Creatinine 2.28 H, Glucose 86 - Problems (1) Generalized atherosclerosis Current Visit: Yes Status: Acute (2) Tinea unguium Current Visit: Yes Status: Acute Conclusions/Impression: Debridement of nails x 10 Time Spent Managing Pts care (In Minutes): 20
[2018-11-01] MEDS: DOCUSATE NA/SENNA CONC 1 TAB PO SCH (19:53)
--- NOTE | 2018-11-02 00:26 | PN ---
Date of Progress Note: 11/01/2018 Subjective: Patient was seen this morning for followup. He was lying in bed, not in any distress. Denied any complaints. Leg swelling is better today than yesterday. Intake and output records revie wed. Physical Examination: Vital Signs: Reviewed. HEENT: Unremarkable. Lungs: Clear to auscultation. Heart: Sounds normal. Abdomen: Soft. Bowel sounds normal. No guarding, rigidity, tenderness, or distention. Extremities: Bilateral leg edema present, but better today than yesterday. Laboratory Data: Sodium 142; potassium 4.3; chloride 108; bicarb 27; BUN 35; creatinine 2.28; yester day creatinine was 2.60; glucose 86. Impression: 1.Chronic kidney disease, stage 3, with acute worsening. 2.Neurogenic bladder. 3.Right footdrop. 4.Lumbar spinal stenosis. Plan: We will continue current medication. Patient was encouraged to drink water. Creatinine is be tter today than yesterday. Continue to monitor intake and output. Patient has an appointment to see his neurologist this week on Wednesday, and nurse on the rehab was advised to find out if patient will have followup appointment in [place] or we need to get our local urologist his neurogenic bladder problem as he is going to continue to have catheter at least at this point. BENNY/MODL Voice ID: [id number] Report ID: [id number]
[2018-11-02] MEDS: METOPROLOL XL 100 MG TAB PO SCH (05:05)
[2018-11-02] MEDS: HEPARIN 5000 UNIT/ML 1 ML VIAL SQ SCH ×2 (05:58→18:22)
[2018-11-02] MEDS: FENOFIBRATE 160 MG TAB PO SCH (07:58)
[2018-11-02] MEDS: FAMOTIDINE 20 MG TAB PO SCH (07:58)
[2018-11-02] MEDS: AMLODIPINE 5 MG TAB PO SCH ×2 (07:58→19:47)
[2018-11-02] MEDS: FERROUS SULFATE 325 MG TAB PO SCH (07:58)
[2018-11-02] MEDS: FE SULF/FA/VIT B COMP & C TAB PO SCH (07:59)
[2018-11-02] MEDS: PROMOD 30 ML DOSE PO SCH ×2 (07:59→19:48)
[2018-11-02] MEDS ORDERED: A AND D TOP SCH (08:00)
[2018-11-02] MEDS: DOCUSATE NA/SENNA CONC 1 TAB PO SCH (19:48)
--- NOTE | 2018-11-02 23:24 | PN ---
Date of Progress Note: 11/02/2018 Subjective: Patient was seen this morning for followup. No new complaints or problems reported by brian lockett. He was sitting in wheelchair. Denied any complaints. Objective: Vital Signs: Reviewed. HEENT: Unremarkable. Lungs: Clear to auscultation. Heart: Sounds normal. Abdomen: Soft. Bowel sounds normal. No guarding, rigidity, tenderness, or distention. Extremities: Trace leg edema. Impression: 1.Spinal stenosis, lumbar. 2.Neurogenic bladder secondary to above. 3.Right footdrop secondary to above. 4.Chronic kidney disease, stage 3. 5.Anemia. Plan: We will continue current medications. Patient will have blood work done tomorrow. Will blanca nue to follow with Dr. Wadsworth for physical therapy and will follow up with urologist. BENNY/MODL Voice ID: [id number] Report ID: [id number]
[2018-11-03] MEDS: METOPROLOL XL 100 MG TAB PO SCH (05:15)
[2018-11-03 06:46] LABS: Absolute Lymphocytes (CBC) 1.4 K/uL (0.7-4.9); Basophils % 1.4 % (0-1.3); Hematocrit 28.2 % (39.6-49.0); Lymphocytes % 28.5 % (15.3-44.8); MPV 7.6 fL (7.6-11.3); RBC Red Blood Cell Count 3.07 M/uL (4.33-5.43)
[2018-11-03 07:00] LABS: Albumin 2.1 g/dL (3.4-5.0); Magnesium 2.3 mg/dL (1.8-2.4); Potassium 4.9 mmol/L (3.5-5.1); Prealbumin 10.8 mg/dL (20-40)
[2018-11-03] MEDS: A AND D TOP SCH ×2 (07:35→19:58)
[2018-11-03] MEDS: FAMOTIDINE 20 MG TAB PO SCH (07:55)
[2018-11-03] MEDS: FERROUS SULFATE 325 MG TAB PO SCH (07:55)
[2018-11-03] MEDS: FENOFIBRATE 160 MG TAB PO SCH (07:55)
[2018-11-03] MEDS: AMLODIPINE 5 MG TAB PO SCH ×2 (07:55→20:00)
[2018-11-03] MEDS: PROMOD 30 ML DOSE PO SCH ×2 (07:56→19:59)
[2018-11-03] MEDS: FE SULF/FA/VIT B COMP & C TAB PO SCH (07:56)
[2018-11-03] MEDS ORDERED: A AND D TOP SCH (08:00)
[2018-11-03] MEDS: HEPARIN 5000 UNIT/ML 1 ML VIAL SQ SCH ×2 (08:20→17:56)
[2018-11-03] MEDS: levoFLOXacin 750 MG TAB PO SCH (09:00)
[2018-11-03] MEDS: DOCUSATE NA/SENNA CONC 1 TAB PO SCH (19:59)
--- NOTE | 2018-11-03 22:28 | PN ---
Date of Progress Note: 11/03/2018 Subjective: Patient was seen this morning for followup, lying in bed, not in distress. Objective: Vital Signs: Reviewed. HEENT: Unremarkable. Lungs: Clear to auscultation. Heart: Sounds normal. Abdomen: Soft. Bowel sounds normal. No guarding, rigidity, tenderness, distention. Extremities: Trace leg edema. Impression: 1.Lumbar spinal stenosis. 2.Right footdrop. 3.Neurogenic bladder. 4.Chronic kidney disease, stage 3. 5.Volume depletion. 6.Anemia. Plan: Patient was encouraged to drink 50 to 60 ounces of water a day. We will monitor his blood wor k. When I saw him this morning, blood work result was pending. We will follow up on the results. Avinash magana current medical management. Dr. Wadsworth will continue to provide and supervise his physical therapy. BENNY/MODL Voice ID: [id number] Report ID: [id number]
[2018-11-04] MEDS: METOPROLOL XL 100 MG TAB PO SCH (05:19)
[2018-11-04] MEDS: HEPARIN 5000 UNIT/ML 1 ML VIAL SQ SCH ×2 (06:09→18:03)
[2018-11-04] MEDS: FE SULF/FA/VIT B COMP & C TAB PO SCH (07:49)
[2018-11-04] MEDS: FAMOTIDINE 20 MG TAB PO SCH (07:49)
[2018-11-04] MEDS: FERROUS SULFATE 325 MG TAB PO SCH (07:49)
[2018-11-04] MEDS: AMLODIPINE 5 MG TAB PO SCH ×2 (07:49→20:27)
[2018-11-04] MEDS: FENOFIBRATE 160 MG TAB PO SCH (07:49)
[2018-11-04] MEDS: A AND D TOP SCH ×2 (07:50→20:27)
[2018-11-04] MEDS: PROMOD 30 ML DOSE PO SCH ×2 (07:50→20:27)
--- NOTE | 2018-11-04 09:58 | P.RH.PN ---
Estimated Length of Stay: 10 Expected Discharge Date: 11/08/18 Discharge Disposition Plan: Home Family Support: Yes Correction Goal: Mobility, Transfers, Self Care Vital Signs: Last Vital Signs Temp 97.0 F 11/04/18 07:04 Pulse 68 11/04/18 07:49 Resp 16 11/04/18 07:04 BP 136/66 11/04/18 07:49 Pulse Ox 99 11/04/18 07:04 Laboratory: Laboratory Last Values WBC 5.0 K/uL (4.3-10.9) 11/03/18 05:56 RBC 3.07 M/uL (4.33-5.43) L 11/03/18 05:56 Hgb 9.9 g/dL (13.6-17.9) L 11/03/18 05:56 Hct 28.2 % (39.6-49.0) L 11/03/18 05:56 MCV 92.0 fL (80-100) 11/03/18 05:56 MCH 32.2 pg (27.0-35.0) 11/03/18 05:56 MCHC 35.1 g/dL (32.0-36.0) 11/03/18 05:56 RDW 13.6 % (12.1-15.2) 11/03/18 05:56 Plt Count 449 K/uL (152-406) H 11/03/18 05:56 MPV 7.6 fL (7.6-11.3) 11/03/18 05:56 Neutrophils % 55.6 % (41.7-73.7) 11/03/18 05:56 Lymphocytes % 28.5 % (15.3-44.8) 11/03/18 05:56 Monocytes % 12.4 % (3.3-12.3) H 11/03/18 05:56 Eosinophils % 2.1 % (0-4.4) 11/03/18 05:56 Basophils % 1.4 % (0-1.3) H 11/03/18 05:56 Absolute Neutrophils 2.8 K/uL (1.8-8.0) 11/03/18 05:56 Absolute Lymphocytes 1.4 K/uL (0.7-4.9) 11/03/18 05:56 Absolute Monocytes 0.6 K/uL (0.1-1.3) 11/03/18 05:56 Absolute Eosinophils 0.1 K/uL (0-0.5) 11/03/18 05:56 Absolute Basophils 0.1 K/uL (0-0.5) 11/03/18 05:56 Sodium 147 mmol/L (136-145) H 11/03/18 05:56 Potassium 4.9 mmol/L (3.5-5.1) 11/03/18 05:56 Chloride 113 mmol/L (98-107) H 11/03/18 05:56 Carbon Dioxide 28 mmol/L (21-32) 11/03/18 05:56 BUN 26 mg/dL (7-18) H 11/03/18 05:56 Creatinine 1.97 mg/dL (0.55-1.3) H 11/03/18 05:56 Estimated GFR 34 mL/min (=/>90) L 11/03/18 05:56 Glucose 86 mg/dL (74-106) 11/03/18 05:56 Calcium 8.2 mg/dL (8.5-10.1) L 11/03/18 05:56 Magnesium 2.3 mg/dL (1.8-2.4) 11/03/18 05:56 Albumin 2.1 g/dL (3.4-5.0) L 11/03/18 05:56 Prealbumin 10.8 mg/dL (20-40) L 11/03/18 05:56 Weight: 191 lb 11.2 oz Wound Present: No Closed Surgical Incision Present: No Negative Pressure Wound Therapy Present: No Physician Update: Doing well with PT and OT. Medical Issues: DVT - Heparin 5,000 units SQ Q12H. UTI - Levaquin 750mg Q48H PO x 3 doses Functional Improvement: Patient has met all short-term and long-term goals at this time, w/ the exception of a car transfer. Patient has shown good overall safety awareness and progress throughout. Functional Improvement Occupational Therapy: No c/o pain during session, except for weakness. Patient is very participatory and motivated to improve his current level of function to meet the LTG as set in POC prior to a safe d/c home. Speech Therapy Update: Pt presents with mild cognitive impairments in the setting of decreased education and history of learning (reading) disability. Patient requires occasional repetition due to hearing and/or processing impairments. Patient exhibits decreased mental flexibility, ability to solve problems, and impaired sequencing. He would benefit from ST to address aforementioned deficits in order to optimize functional independence and decrease risk for falls/injuries associated with medical/physical issues/ limitations. Summary: Patient's care plan and terminal superintendent goals have been reviewed and revised as necessary. Please see the Rehabilitation Signature page for all necessary signatures.
--- NOTE | 2018-11-04 13:49 | PN ---
Date of Progress Note: 11/04/2018 Subjective: The patient was seen this morning for followup. No new complaints or problems reported b y patient. He was sitting in the wheelchair in dining room. Denied any complaints. Objective: Vital Signs: Reviewed. HEENT: Examination unremarkable. Lungs: Clear to auscultation. Heart: Sounds normal. Abdomen: Soft. Bowel sounds normal. No guarding, rigidity, tenderness, distention. Extremity Exam : Trace leg edema, unchanged from yesterday. Laboratory Data: Yesterday's lab results reviewed. White count was 5, hemoglobin 9.9, platelets 449 . Sodium 147, potassium 4.9, chloride 113, bicarb 28, BUN 26, creatinine 1.97, glucose 86. Impression: 1.Lumbar spinal stenosis. 2.Neurogenic bladder secondary to above. 3.Right footdrop secondary to above. 4.Chronic kidney disease, stage 3. 5.Anemia. Plan: Continue current medication. The patient has indwelling Anthony catheter due to neurogenic blad chris and I did talk to Dr. Wadsworth today and he has discussed details with Dr. Porras, urologist, who will consider suprapubic catheter at some time in future but not at this point as I understand. The patient also has appointment to see neurosurgeon, Dr. Woodward today to get his opinion regarding if an y surgical intervention should be done on him or not at [facility]. So, far has not decided to do any surgery on him, to go office and recent admissions at at particular facility. BENNY/MODL Voice ID: [id number] Report ID: [id number]
[2018-11-04] MEDS: DOCUSATE NA/SENNA CONC 1 TAB PO SCH (20:26)
[2018-11-05] MEDS: METOPROLOL XL 100 MG TAB PO SCH (05:22)
[2018-11-05 05:34] VITALS: BMI 26.4
[2018-11-05] MEDS: HEPARIN 5000 UNIT/ML 1 ML VIAL SQ SCH ×2 (05:48→18:23)
[2018-11-05] MEDS: A AND D TOP SCH ×2 (06:46→19:37)
[2018-11-05] MEDS: PROMOD 30 ML DOSE PO SCH ×2 (08:00→19:38)
[2018-11-05] MEDS: FAMOTIDINE 20 MG TAB PO SCH (08:11)
[2018-11-05] MEDS: FE SULF/FA/VIT B COMP & C TAB PO SCH (08:11)
[2018-11-05] MEDS: FERROUS SULFATE 325 MG TAB PO SCH (08:11)
[2018-11-05] MEDS: AMLODIPINE 5 MG TAB PO SCH ×2 (08:11→19:37)
[2018-11-05] MEDS: FENOFIBRATE 160 MG TAB PO SCH (08:11)
[2018-11-05] MEDS: levoFLOXacin 750 MG TAB PO SCH (08:15)
[2018-11-05] MEDS: DOCUSATE NA/SENNA CONC 1 TAB PO SCH (19:38)
[2018-11-06] MEDS: METOPROLOL XL 100 MG TAB PO SCH (05:12)
[2018-11-06] MEDS: HEPARIN 5000 UNIT/ML 1 ML VIAL SQ SCH ×2 (05:56→17:50)
[2018-11-06] MEDS: A AND D TOP SCH ×2 (06:17→18:50)
[2018-11-06] MEDS: PROMOD 30 ML DOSE PO SCH ×3 (08:00→18:51)
[2018-11-06] MEDS: FENOFIBRATE 160 MG TAB PO SCH (08:23)
[2018-11-06] MEDS: FE SULF/FA/VIT B COMP & C TAB PO SCH (08:23)
[2018-11-06] MEDS: FAMOTIDINE 20 MG TAB PO SCH (08:23)
[2018-11-06] MEDS: FERROUS SULFATE 325 MG TAB PO SCH (08:23)
[2018-11-06] MEDS: AMLODIPINE 5 MG TAB PO SCH ×2 (08:23→18:51)
--- NOTE | 2018-11-06 09:04 | PN ---
Date of Progress Note: 11/06/2018 Subjective: Patient was seen this morning for followup. He was sitting in the chair. Denied any co mplaints. Objective: Vital Signs: Reviewed. HEENT: Examination unremarkable. Lungs: Clear to auscultation. Heart: Sounds normal. Abdomen: Soft. Bowel sounds normal. No guarding, rigidity, tenderness, distention. Extremities: No leg edema. Impression: 1.Lumbar spinal stenosis. 2.Neurogenic bladder secondary to above. 3.Right footdrop secondary to above. 4.Chronic kidney disease, stage 3. Plan: We will continue current medications. Continue physical therapy under guidance of Dr. Bhavin mendoza. We will continue to follow up with urologist, Dr. Porras. Continue heparin for DVT prophylaxis. BENNY/MODL Voice ID: [id number] Report ID: [id number]
[2018-11-06] MEDS: DOCUSATE NA/SENNA CONC 1 TAB PO SCH (18:50)
[2018-11-07] MEDS: METOPROLOL XL 100 MG TAB PO SCH (05:00)
[2018-11-07] MEDS: A AND D TOP SCH ×2 (07:31→20:08)
[2018-11-07] MEDS: FERROUS SULFATE 325 MG TAB PO SCH (07:42)
[2018-11-07] MEDS: AMLODIPINE 5 MG TAB PO SCH ×2 (07:42→20:07)
[2018-11-07] MEDS: FENOFIBRATE 160 MG TAB PO SCH (07:42)
[2018-11-07] MEDS: FE SULF/FA/VIT B COMP & C TAB PO SCH (07:43)
[2018-11-07] MEDS: FAMOTIDINE 20 MG TAB PO SCH (07:43)
[2018-11-07] MEDS: PROMOD 30 ML DOSE PO SCH ×2 (07:44→20:00)
[2018-11-07] MEDS: HEPARIN 5000 UNIT/ML 1 ML VIAL SQ SCH ×2 (08:27→20:08)
[2018-11-07] MEDS: DOCUSATE NA/SENNA CONC 1 TAB PO SCH (20:09)
--- NOTE | 2018-11-07 21:08 | PN ---
Date of Progress Note: 11/07/2018 Subjective: Patient was seen this morning for followup. No new complaints or problems reported by brian lockett. Lying in bed, not in any distress. Objective: Vital Signs: Reviewed. HEENT: Unremarkable. Lungs: Clear to auscultation. No rhonchi. No rales. Heart: Sounds normal. Abdomen: Soft. Bowel sounds normal. No guarding, rigidity, tenderness, or distention. Extremities: Bilateral trace leg edema. Impression: 1.Lumbar spinal stenosis. 2.Neurogenic bladder secondary to above. 3.Right footdrop secondary to above. 4.Chronic kidney disease, stage 3. Plan: Continue current medications. We will continue physical therapy under guidance of Dr. Bhavin mendoza. Continue current DVT prophylaxis. I will see him tomorrow for followup. BENNY/MODL Voice ID: [id number] Report ID: [id number]
[2018-11-08] MEDS: METOPROLOL XL 100 MG TAB PO SCH (05:15)
[2018-11-08 07:14] VITALS: BP 126/67; TEMP 97.5
[2018-11-08] MEDS: FENOFIBRATE 160 MG TAB PO SCH (07:26)
[2018-11-08] MEDS: FE SULF/FA/VIT B COMP & C TAB PO SCH (07:26)
[2018-11-08] MEDS: FAMOTIDINE 20 MG TAB PO SCH (07:26)
[2018-11-08] MEDS: AMLODIPINE 5 MG TAB PO SCH (07:26)
[2018-11-08] MEDS: FERROUS SULFATE 325 MG TAB PO SCH (07:26)
[2018-11-08] MEDS: PROMOD 30 ML DOSE PO SCH (07:27)
[2018-11-08] MEDS: A AND D TOP SCH (07:28)
[2018-11-08] MEDS: HEPARIN 5000 UNIT/ML 1 ML VIAL SQ SCH (07:28)
--- NOTE | 2018-11-08 21:32 | DS ---
Date of Discharge: 11/08/2018 Disposition: Discharged to go home. Physical Examination: HEENT: Unremarkable. Lungs: Clear to auscultation. Heart: Sounds normal. Abdomen: Soft. Bowel sounds normal. No guarding, rigidity, tenderness, or distention. Extremities: No leg edema. Laboratory Data: Upon admission, white count 3.6, hemoglobin 9.9, platelets 369. On 11/03/2018, whi te count 5, hemoglobin 9.9, platelets 449. Last chemistry on 11/03/2018, sodium 147, potassium 4.9, chloride 113, bicarb 28, BUN 26, creatinine 1.97, glucose 86. Hospital Course: A 68-year-old male patient who was admitted to rehab floor after he was transferred from [facility]. Please see dictated H and P for more information. Patient was admi tted to the hospital for further rehab therapy. He has severe lumbar spinal stenosis resulting in ne urogenic bladder and right footdrop. He had 2 admissions at [facility] and each time after evaluation, he was told that he did not need any back surgery and physical therapy was suggeste d. He was given IV steroid while he was there in the hospital. After he came to our hospital to [facility] floor, Dr. Wadsworth provided physical therapy and he also made arrangements for patient to get ano ther opinion from different neurosurgeon, Dr. Woodward and as I understand, Dr. Woodward also has not sug gested any surgical intervention. Patient has a neurogenic bladder, has required indwelling Anthony ca theter, which he came to our hospital with from [place]. Patient to follow up with Dr. Porras for fur ther management of this neurogenic bladder. He had some excessive amount of dry skin over foot, whic h has improved with topical application of A and D ointment. He also has some evidence of fungus inf ection of his foot and we will start him on nystatin cream on outpatient basis. His constipation pro blem was addressed with help of Senokot S and MiraLax, a hyperosmotic drug. Final Diagnoses: 1.Lumbar spinal stenosis. 2.Neurogenic bladder secondary to above. 3.Right footdrop secondary to above. 4.Anemia due to chronic kidney disease. 5.Chronic kidney disease, stage 3. 6.Hypertension. 7.Hyperlipidemia, mixed. 8.Benign prostatic hypertrophy. 9.Diverticulosis. 10.Tinea pedis. Discharge Medications And Instructions: 1.Continue all prior home medications. 2.Follow up at my office in 2 weeks. 3.Follow up with Dr. Porras next week. 4.Follow up with Dr. Wadsworth in 3 weeks. 5.Nurse on rehab floor was advised to change his Anthony catheter today prior to discharge and change it to leg bag and teach patient how to take care of his Anthony catheter at home. BENNY/MODL Voice ID: [id number] Report ID: [id number]
== END 2018-11-08 16:31 | disposition home or self-care (01) | DRG 552 ==
LOC: 5TH 20:44
PROVIDERS: ADMIT Internal Medicine; ATTEND Internal Medicine
DX: M48.061 Spinal stenosis, lumbar region without neurogenic claudication (principal); N31.9 Neuromuscular dysfunction of bladder, unspecified; M21.371 Foot drop, right foot; I12.9 Hypertensive chronic kidney disease with stage 1 through stage 4 chronic kidney disease, or unspecified chronic kidney disease; N18.3 Chronic kidney disease, stage 3 (moderate); D64.9 Anemia, unspecified; I70.91 Generalized atherosclerosis; B35.1 Tinea unguium; E78.2 Mixed hyperlipidemia; N40.0 Benign prostatic hyperplasia without lower urinary tract symptoms; K57.90 Diverticulosis of intestine, part unspecified, without perforation or abscess without bleeding; B35.3 Tinea pedis
CPT/HCPCS: 36415; 80048; 82040; 83735; 84134; 85025; 92523; 93970; 97110; 97116; 97127; 97161; 97530; J1644

== ENCOUNTER 2019-08-01 09:25 | Day surgery (SDC) | payer OTHER ==
[2019-08-01] MEDS ORDERED: CEFTRIAXONE/SWI 1gm 1 GM/10 ML SYR IV ONE (09:45)
[2019-08-01 10:01] VITALS: BMI 29.7
[2019-08-01 10:03] VITALS: BP 109/63; TEMP 99; O2SAT 98
--- OUTSIDE RECORDS SUMMARY | 2019-08-01 11:56 | XMS REPORT | Continuity of Care Document ---
:1950 Author Organization [employer] Care Team Providers Name Role Phone [employer] Unavailable Un available Problems Problem Status Onset Classification Date Comments Sourc e Date Reported FOOT Active [facility] SWOLLEN/PAIN 0 [facility] Center RT FOOT PUNCTURE Active [facility] WOUND 0 [facility] Center SEVERE [id number] Active [facility] SPINAL STENOSIS 9 [facility] Center [facility] IN [facility] [address] [place] [address] Center TRANSVERSE Active [facility] MYELITIS [address] [place] [address] Acute urinary Active Problem 04/19/2019 [place] tract infection [facility] (disorder) Center, IESHA Guerrero Fever (finding) Active Problem 04/19/2019 [facility], OPIAshley Guerrero Hypoglycemia Active Problem 04/19/2019 [facility] as (disorder) [facility], OPIAshley Guerrero Simple obesity Active Problem 04/19/2019 [place] (disorder) [facility] Center, OPID [place] ACUTE TRANSVERSE Active [facility] MYELITIS IN [facility] DEMYELINATI Center PUNCTURE WOUND [place] WITHOUT FOREIGN [facility] BODY, [facility] Center Medications Medication Details Route Status Patient Ordering Order Source Instructions Provider Date ciprofloxacin 250 mg 250 mg = 1 Active 03/13[facility] oral tablet tab, PO, Q12H, 2019 Medic al X 8 day, # 16 Center tab, 0 Refill(s), Pharmacy: [id number] clindamycin 150 mg 300 mg = 2 Active 03/13[facility] oral capsule cap, PO, 2019 Medical [id number], X 8 Center day, # 64 cap, 0 Refill(s), Pharmacy: [id number] duloxetine Notes: (Same No Longer 03/13/ [place] as: Cymbalta) Active [address] [place] [address] (Do Not Center Crush) Fenofibrate 145 MG Notes: (Same No Longer 03/13[facility] Oral Tablet as: Tricor) Active [address] [place] [address] 24 HR Metoprolol Notes: (Same No Longer [place] Tartrate 100 MG as: Toprol XL) Active 2019 edical Extended Release May split Cent er Tablet [Toprol] tab, but do not crush. tamsulosin Notes: (Same No Longer [place] As: Flomax) [address] "Do Not Crush" [place] sennosides, PRISON Notes: (Same No Longer [place] as: Senokot) Active [address] [place] [address] Clindamycin Notes: (Same [place] Longer [place] As: Cleocin) Active [address] [place] [address] POLYETHYLENE GLYCOL Notes: No Longer [place] 3350 Dissolve in [address] oz of water or Center juice. (Same as: Miralax) Cipro Notes: May No Longer [facility] interfere [address] w/enteral [place] feedings - Take 1 hr before or 2 hrs after antacids, dairy pdt & minerals. On empty stomach. Amlodipine Notes: (Same No Longer [place] as: Norvasc) [address] heparin sodium, Notes: porcine No Longer [place] porcine 2500 UNT/ML heparin Active 2019 [facility] Injectable Solution Cent er Clindamycin Notes: No Longer [place] (clindamycin Active [address] [place] [address] 150 mg/1 ml [place] (600 mg/4 ml VL) INJ) (Same As: Cleocin) DULoxetine 30 mg 30 mg = 1 cap, Active [place] oral delayed release PO, Daily 2019 edical capsule [place] tamsulosin 0.4 mg 0.4 mg = 1 Active [facility] oral capsule cap, PO, Daily 2019 [facility] Fenofibrate 145 MG 145 mg = 1 Active [facility] Oral Tablet tab, PO, Daily 2019 Medic al [place] Dextrose 50% Syringe 12.5 gm, 25 No Longer 03/12 [facility] (D50W) mL, Route: 2019 [facility] IVP, Drug Center Form: INJ, Dosing Weight 81.818, kg, PRN, PRN Blood Glucose Results, Start date: 03/12/19 12:43:00 TRASHMAN, Duration: 30 day, Stop date: 04/11/19 12:42:00 TRASHMAN, 0 Glucagon 1 mg, Route: No Longer [facility] IM, Drug form: Active 2019 Medical PDR/INJ, PRN, Center Dosing Weight 81.818, kg, PRN Blood Glucose Results, Start date: 03/12/19 12:43:00 TRASHMAN, Duration: 30 day, Stop date: 04/11/19 12:42:00 TRASHMAN, 0 Ciprofloxacin 400 mg, Route: Inactive [place] IVPB, ONCE, 2019 Medical Dosing Weight Center 81.818, kg, Priority: STAT, Start date: 03/12/19 10:27:00 TRASHMAN, Stop date: 03/12/19 10:27:00 TRASHMAN, ABX Indication: Skin/Soft Tissue Infection levofloxacin 750 mg 750 mg = 1 Active H [place] oral tablet tab, PO, 2019 Medical Daily, X 5 Center day, # 5 tab, 0 Refill(s), other Acetaminophen 325 MG 650 mg = 2 Active [place] Oral Tablet tab, PO, Q6H, 2019 Medica l PRN Pain Score [place] 1-3, 0 Refill(s) bethanechol 5 mg 5 mg = 1 tab, Active H [place] oral tablet PO, TID, 0 2019 Medical Refill(s) [place] bisacodyl 10 mg 10 mg = 1 Active [place] rectal suppository supp, RI, 2019 Med ical Daily, PRN [place] Constipation, 0 Refill(s) Ergocalciferol 50775 50,000 Active [place] UNT Oral Capsule IntlUnit = 1 2019 Me dical cap, PO, Q7D, [place] 0 Refill(s) Famotidine 20 MG 20 mg = 1 tab, Active [facility] Oral Tablet PO, BID, 0 2019 Medical Refill(s) [place] sennosides, PRISON 8.6 17.2 mg = 2 Active [facility] MG Oral Tablet tab, PO, BID, 2019 Med ical 0 Refill(s) [place] polyethylene glycol PO, Daily, 0 Active [facility] 3350 oral powder for Refill(s) 2019 edical reconstitution [place] Ergocalciferol 83621 50,000 No Longer H [place] UNT Oral Capsule IntlUnit, 1 Active 2019 Med ical cap, Route: Center PO, Drug form: CAP, Q7D, Dosing Weight 88.182, kg, Start date: 10/23/18 11:00:00 CDT, Duration: 30 day, Stop date: 11/20/18 9:00:00 CDT, 0 Urecholine Notes: Take on Inactive [place] empty stomach. 2019 Medical (Same As: [place] Urecholine) heparin Notes: porcine [place] Longer [place] heparin Active 2019 [facility] gabapentin 100 MG Notes: (Same No Longer [facility] Oral Capsule as: Neurontin) Active 2018 [facility] Urecholine 5 mg, 1 tab, No Longer [place] Route: PO, Active 2019 Medical Drug form: Center TAB, TID, Dosing Weight 88.182, kg, Start date: 10/20/18 22:00:00 CDT, Duration: 30 day, Stop date: 11/19/18 14:00:00 CDT, 0 NS 1,000 mL 1,000 mL, Inactive [facility] Rate: 125 2019 [facility] ml/hr, Infuse Center over: 8 hr, Route: IV, Dosing Weight 88.182 kg, Total Volume: 1,000, Start date: 10/20/18 13:09:00 CDT, Duration: 30 day, Stop date: 11/19/18 13:08:00 CDT, 2.06, m2, 0 NS (Bolus) IV 1,000 mL, 500 Inactive [facility] ml/hr, Infuse 2019 Medical Over: 2 hr, [place] Route: IV, 1,000, Drug form: INJ, ONCE, Priority: STAT, Dosing Weight 88.182 kg, Start date: 10/20/18 1:04:00 CDT, Stop date: 10/20/18 1:04:00 CDT, 0 Ceftriaxone Notes: (Same No Longer [place] As: Rocephin). Active 2019 Medical Center MEDICATION WASTE Product Size: 1000 mg Product Wasted: __0_ mg sennosides, PRISON Notes: (Same No Longer [facility] as: Senokot) Active 2019 [facility] Miralax Notes: No Longer [facility] Dissolve in 8 Active 2019 Medical oz of water or [place] juice. (Same as: Miralax) normal saline 0.9% 1,000 mL, Inactive [place] IV 1000 mL Rate: 75 2018 Medical ml/hr, Infuse Center over: 13.3 hr, Route: IV, Dosing Weight 88.182 kg, Total Volume: 1,000, Start date: 10/19/18 6:53:00 CDT, Duration: 30 day, Stop date: 11/18/18 6:52:00 CDT, 2.06, m2 normal saline 0.9% 1,000 mL, No Longer [facility] IV 1,000 mL Rate: 125 Active 2018 Medical ml/hr, Infuse Center over: 8 hr, Route: IV, Dosing Weight 88.182 kg, Total Volume: 1,000, Start date: 10/19/18 3:24:00 CDT, Duration: 30 day, Stop date: 11/18/18 3:23:00 CDT, 2.06, m2, 0 Bisacodyl Notes: (Same No Longer [place] As: Dulcolax, Active 2019 [facility] Bisco-Lax) Center Bethanechol Notes: Take on No Longer [facility] empty stomach. Active 2019 Medical (Same As: Center Urecholine) famotidine Notes: (Same No Longer [facility] as as: Pepcid) Active 2019 [facility] Dextrose 50% Syringe 12.5 gm, 25 No Longer 10/12 [facility] mL, Route: Active 2018 Medical IVP, Drug Center Form: INJ, Dosing Weight 88.182, kg, PRN, PRN Blood Glucose Results, Start date: 10/12/18 16:37:00 CDT, Duration: 30 day, Stop date: 11/11/18 16:36:00 CDT, 0 Glucagon 1 mg, Route: No Longer [facility] IM, Drug form: Active 2018 Medical PDR/INJ, PRN, Center Dosing Weight 88.182, kg, PRN Blood Glucose Results, Start date: 10/12/18 16:37:00 CDT, Duration: 30 day, Stop date: 11/11/18 16:36:00 CDT, 0 Insulin regular Notes: (Same No Longer [facility] as: Humulin R) Active 2019 Medical Roll in palms Center of hands gently; Do not shake vigorously. WASTE: F/P - Black; E - Municipal Trash Bin Stable for 31 days at room temperature Expires in days from Date heparin 5,000 unit, 1 No Longer [facility] mL, Route: Active 2019 Medical SUB-Q, Drug Center form: INJ, Q8H, Start date: 10/12/18 16:00:00 CDT, Duration: 30 day, Stop date: 11/11/18 8:00:00 CDT, 0 Iohexol Notes: (Same Inactive [facility] as:Omnipaque 2019 Medical 350). WASTE: Center F/P - Black; E - Municipal Trash Bin Ativan Notes: (Same No Longer [facility] as: Ativan) Active 2019 [facility] gabapentin 300 MG Notes: (Same No Longer [facility] Oral Capsule as: Neurontin) Active 2019 [facility] methylPREDNISolone Notes: (Same No Longer [facility] SODium SUCCinate + as:Solu-MEDROL Active 2019 [facility] Sodium Chloride 0.9% , A-Methapred) [place] IV 100 mL MEDICATION WASTE Product Size: 1000 mg Product Wasted: _0__ mg Docusate Sodium 50 Notes: (Same No Longer [facility] MG / sennosides, PRISON as Senokot-S) Active 2019 Medical 8.6 MG Oral Tablet Equiv. to [address] [place]-Colace. Fenofibrate 160 MG 160 mg, 1 tab, Inactive 10/11 [facility] Oral Tablet Route: PO, 2019 Medical Drug form: Center TAB, Daily, Dosing Weight 88.182, kg, Start date: 10/11/18 9:00:00 CDT, Duration: 30 day, Stop date: 11/09/18 9:00:00 CDT Amlodipine Notes: (Same No Longer [place] as: Norvasc) Active 2019 [facility] fenofibrate Notes: (Same No Long[place] as: Tricor) Active 2019 Medical [place] Lovenox Notes: (Same Inactive [place] as: Lovenox) 2019 Medical [place] metoprolol extended Notes: (Same No Longer 10/09 [facility] [place] release as: Toprol XL) Active 2018 [facility] May split Center tab, but do not crush. Dextrose 50% Syringe 12.5 gm, 25 No Longer 10/09 [place] mL, Route: Active 2018 Medical IVP, Drug Center Form: INJ, Dosing Weight 88.182, kg, PRN, PRN Blood Glucose Results, Start date: 10/09/18 0:38:00 CDT, Duration: 30 day, Stop date: 11/08/18 0:37:00 CDT, 0 Glucagon 1 mg, Route: No Longer [place] IM, Drug form: Active 2018 Medical PDR/INJ, PRN, Center Dosing Weight 88.182, kg, PRN Blood Glucose Results, Start date: 10/09/18 0:38:00 CDT, Duration: 30 day, Stop date: 11/08/18 0:37:00 CDT, 0 Docusate Notes: (Same No Longer [place] as: Colace) Active 2018 Medical (Do Not Crush) Center sennosides, PRISON Notes: (Same No Longer [facility] [place] as: Senokot) Active 2019 Medical Center POLYETHYLENE GLYCOL Notes: No Longer [place] 3350 Dissolve in 8 Active 2018 Medical oz of water or Center juice. (Same as: Miralax) Bisacodyl Notes: (Same [place] Longer [place] As: Dulcolax, Active 2018 [facility] Bisco-Lax) Center Ondansetron Notes: (Same No Longer [place] as: Zofran) Active 2019 Medical MEDICATION Center WASTE Product Size: 4 mg Product Wasted: ___ mg Melatonin Notes: (Same No Longer [place] as: Melatonin) Active 2019 Medical Center Acetaminophen Notes: Do not No Longer [place] exceed 4 Active 2019 Medical gm/day. (Same Center as: Tylenol) Compazine Notes: (Same No Longer [place] as: Compazine) Active 2019 Medical Center Acetaminophen 325 MG Notes: (Same No Longer 09/16 [place] / Hydrocodone as: [place] Active 2019 Medical Bitartrate 5 MG Oral 325/5) Do not Center Tablet [[place] 5/325] exceed 4gm/day of acetaminophen. Dilaudid Notes: Same No Longer [place] as: Dilaudid Active 2018 [facility] Robitussin DM Notes: No Longer [place] (dextromethorp Active 2019 [facility] 10-100mg/5ml 10 ml oral SOLN ud) (Same as: [facility]) Lubricant Eye Drops Notes: (Same No Longer 10/09 [place] ophthalmic solution as: Aquasite) Active 2018 [facility] Nasal Saline 0.65% Notes: (Same No Longer [place] solution as: [place], Active 2018 [facility] Deep Sea Nasal Center [place]). Benadryl Maximum 1 appl, Route: No Longer [place] Strength 2% topical TOP, QID, Drug Active 2018 Medical cream form: CRM, PRN Center as needed for itching, Start date: 10/09/18 0:38:00 CDT, Duration: 30 day, Stop date: 11/08/18 0:37:00 CDT, 0 Tums Notes: (Same No Longer [place] As: Tums) Active 2018 [facility] Calcium [place] Carbonate 500 mg = 200 mg elemental calcium Dose = mg calcium carbonate ( mg elemental calcium) Benzocaine 15 MG / Notes: Cepacol No Longer 09/16 [place] Menthol 3.6 MG lozenges Active 2018 Medical Lozenge [Cepacol Dispense 1 box Center Sore Throat Pain = 16 lozenges Relief 15/3.6] (Same As: Cepacol Lozenges) Fluticasone Notes: (Same No Longer [place] propionate 0.05 as: Flonase) Active 2018 Med ical MG/ACTUAT Metered Center Dose Nasal [place] [Flonase] Lanolin 0.157 MG/MG Notes: (Same No Longer 10/09 [place] / Menthol 0.0044 as: Active 2019 Medical MG/MG / Petrolatum Calmoseptine) Center 0.24 MG/MG / Zinc Oxide 0.206 MG/MG Topical Ointment [Calmoseptine] Albuterol 0.83 MG/ML Notes: SEE RT No Longer [facility] Inhalant Solution DOCUMENTATION Active 2019 Medical (Same as: Center Proventil) Cetirizine Notes: (Same No Longer [place] As: Zyrtec) Active 2019 Medical [place] Allantoin 0.01 MG/MG Notes: Same No Longer 10/09 [place] / Camphor 0.005 as: Blistex Active 2019 Medi [place] MG/MG / phenol 0.[address] MG/MG Topical Ointment [Blistex] Aquaphor 1 appl, Route: No Longer [place] as TOP, Q4H, Drug Active 2019 Medical form: OINT, Center PRN as needed for dry skin, Start date: 10/09/18 0:38:00 CDT, Duration: 30 day, Stop date: 11/08/18 0:37:00 CDT, 0 Miralax Notes: Inactive [place] Dissolve in 2018 Medical oz of water or Center juice. (Same as: Miralax) heparin Notes: porcine No Longer [place] heparin Active 2018 [facility] Miralax Notes: Inactive [place] Dissolve in 2018 Medical oz of water or Center juice. (Same as: Miralax) Fleet Mineral Oil Notes: (Same No Longer [place] Enema as:Fleet Active 2019 [facility] Mineral Oil [place] Enema) sennosides, PRISON Notes: (Same No Longer H [place] as: Senokot) Active 2019 [facility] Bisacodyl 0.333 Notes: (Same Inactive [place] MG/ML Enema As: Dulcolax, 2019 Medica l [place]isco-Lax) [place] Miralax Notes: Inactive [place] Dissolve in 8 2018 Medical oz of water or Center juice. (Same as: Miralax) Tylenol Notes: Do not Inactive [place] exceed 4 2019 Medical gm/day. (Same Center as: Tylenol) Docusate Sodium 100 Notes: (Same No Longer 10/02 [place] MG Oral Capsule as: Colace) Active 2019 Medi [place] (Do Not Crush) [place] sennosides, PRISON Notes: (Same No Longer 10/02/ M H [place] as: Senokot) Active 2019 [facility] Saline Flush 0.9% Notes: (Same No Longer [place] as: BD Active 2019 Medical Posiflush) Center Amlodipine Notes: (Same No Longer [place] as: Norvasc) Active 2019 [facility] Fenofibrate 160 MG 160 mg, 1 tab, Inactive 10/02 [place] Oral Tablet Route: PO, 2019 Medical Drug form: Center TAB, Daily, Dosing Weight 80.909, kg, Start date: 10/02/18 9:00:00 CDT, Duration: 30 day, Stop date: 10/31/18 9:00:00 CDT 24 HR Metoprolol Notes: (Same No Longer [place] Tartrate 100 MG as: Toprol XL) Active 2019 edical Extended Release May split Cent er Tablet [Toprol] tab, but do not crush. fenofibrate Notes: (Same No Longer [place] as: Tricor) Active 2019 [facility] pantoprazole Notes: Tablet No Longer [place] should not be Active 2019 Medical chewed or Center crushed. (Same as: Protonix) methylPREDNISolone Notes: (Same No Longer [place] SODium SUCCinate + as:Solu-MEDROL Active 2019 Medical Sodium Chloride 0.9% , A-Methapred) Center IV 100 mL MEDICATION WASTE Product Size: 1000 mg Product Wasted: ___ mg Fenofibrate 160 MG 160 mg = 1 Active [place] Oral Tablet tab, PO, 2019 Medical Daily, # 30 Center tab, 0 Refill(s) metoprolol 100 mg 100 mg = 1 Active [facility] oral tablet, tab, PO, 2019 Medical extended release Daily, # [address] tab, 0 Refill(s) Amlodipine 5 mg, PO, BID, Active [place] 0 Refill(s) 2019 Medical [place] chlorhexidine Notes: (Same No Longer [place] gluconate 1.2 MG/ML As: Peridex) Active 2019 Medical Mouthwash Center Ondansetron Notes: (Same [place] Longer [place] as: Zofran) Active 2019 Medical MEDICATION Center WASTE Product Size: 4 mg Product Wasted: ___ mg Saline Flush 0.9% Notes: (Same No Longer [facility] as: BD Active 2019 Medical Posiflush) Center Insulin regular Notes: (Same No Longer 10/02/ [facility] as: Humulin R) Active 2019 Medical Roll in [place] Center of hands gently; Do not shake vigorously. WASTE: F/P - Black; E - Municipal Trash Bin Stable for 31 days at room temperature Expires in days from Date Dextrose 50% Syringe 12.5 gm, 25 No Longer 10/02 [facility] mL, Route: Active 2018 Medical IVP, Drug Center Form: INJ, Dosing Weight 80.909, kg, PRN, PRN Blood Glucose Results, Start date: 10/02/18 3:49:00 CDT, Duration: 30 day, Stop date: 11/01/18 3:48:00 CDT, 0 Glucagon 1 mg, Route: No Longer [place] IM, Drug form: Active 2018 Medical PDR/INJ, PRN, Center Dosing Weight 80.909, kg, PRN Blood Glucose Results, Start date: 10/02/18 3:49:00 CDT, Duration: 30 day, Stop date: 11/01/18 3:48:00 CDT, 0 Calcium Chloride 1,000 mL, 1000 Inactive [place] 0.0014 MEQ/ML / ml/hr, Infuse 2018 [facility] Potassium Chloride Over: 1 hr, C enter 0.004 MEQ/ML / Route: IV, Sodium Chloride 1,000, Drug 0.103 MEQ/ML / form: INJ, Sodium Lactate 0.028 ONCE, MEQ/ML Injectable Priority: Solution STAT, Dosing Weight 80.909 kg, Start date: 10/02/18 0:33:00 CDT, Stop date: 10/02/18 0:33:00 CDT, 0 Allergies, Adverse Reactions, Alerts Substance Category Reaction Severity Reaction Status Date Comments S ource type Reported Chlorhexidine Assertion pruritus Moderate Allergy to Active OPID Gluconate substance Herm alexys No Known Assertion Drug [place]an [place] Medication allergy Medic al Allergies Center Immunizations Immunization Date Given Site Status Last Comments Source Updated diphtheria/pertus 03/12/2019 Left completed [facility] sis, acel/tetanus deltoid Me dical adult Center, IESHA Guerrero Results Order Name Results Value Reference Date Interpretation Comments Anjali rce Range CHEM PANEL Glucose Lvl 63 70 - 99 03/13 [facility] CHEM PANEL BUN 27 7 - 22 03/13 2019 [facility] CHEM PANEL Creatinine 1.62 0.50 - 03/13 [place] Lvl 1.40 [facility] CHEM PANEL Sodium Lvl 136 135 - 145 03/13 2019 [facility] CHEM PANEL Potassium Lvl 3.8 3.5 - 5.1 03/13 [facility] CHEM PANEL Chloride Lvl 104 95 - 109 03/13 [facility] CHEM PANEL CO2 25 24 - 32 03/13 2019 [facility] CHEM PANEL AGAP 10.8 10.0 - 03/13 [facility] 20.0 [facility] CHEM PANEL Calcium Lvl 8.6 8.5 - 10.5 03/13 [facility] CHEM PANEL eGFR 42 03/13 Result Comment: The Medical eGFR is Center calculated using the CKD-EPI formula. In most young, healthy individuals the eGFR will be >90 mL/min/1.73m2 . The eGFR declines with age. An eGFR of 60-89 may be normal in some populations, particularly the elderly, for whom the CKD-EPI formula has not been extensively validated. Use of the eGFR is not recommended in the following populations:< br/>
Janine viduals with unstable creatinine concentration s, including patients and those with serious co-morbid conditions.<b r/>
Patie nts with extremes in muscle mass or diet.

The data above are obtained from the National Kidney Disease Education Program (NKDEP) which additionally recommends that when the eGFR is used in patients with extremes of body mass index for purposes of drug dosing, the eGFR should be multiplied by the estimated BMI. CHEM PANEL Magnesium Lvl 2.1 1.8 - 2.4 03/13 [facility] CHEM PANEL Phosphorus 2.8 2.5 - 4.5 03/13 2019 [facility] HEMATOLOGY WBC 8.4 3.7 - 10.4 03/13 2019 [facility] HEMATOLOGY RBC 3.82 4.70 - 03/13 [place] 6.10 [facility] HEMATOLOGY Hgb 11.4 14.0 - 03/13 [facility] 18.0 /2019 [facility] HEMATOLOGY Hct 33.8 42.0 - 03/13 [place] 54.0 /2019 [facility] HEMATOLOGY MCV 88.3 80.0 - 03/13 [place] 94.0 /2019 [facility] HEMATOLOGY MCH 29.7 27.0 - 03/13 [facility] 31.0 /2019 [facility] HEMATOLOGY MCHC 33.7 32.0 - 03/13 [facility] 36.0 /2019 [facility] HEMATOLOGY RDW 14.5 11.5 - 03/13 [facility] 14.5 /2019 [facility] HEMATOLOGY Platelet 219 133 - 450 03/[address] HEMATOLOGY MPV 9.2 7.4 - 10.4 03/[address] HEMATOLOGY Segs 68.9 45.0 - 03/13 [facility] 75.0 /2019 [facility] HEMATOLOGY Lymphocytes 20.2 20.0 - 03/13 [facility] 40.[address] HEMATOLOGY Monocytes 8.0 2.0 - 12.0 03/[address] HEMATOLOGY Eosinophils 2.4 0.0 - 4.0 03/[address] HEMATOLOGY Basophils 0.5 0.0 - 1.0 03/[address] HEMATOLOGY Neutrophils # 5.8 1.5 - 8.1 03/[address] HEMATOLOGY Lymphocytes # 1.7 1.0 - 5.5 03/[address] HEMATOLOGY Monocytes # 0.7 0.0 - 0.8 03/[address] HEMATOLOGY Eosinophils # 0.2 0.0 - 0.5 03/[address] CHEM PANEL Glucose Lvl 98 70 - 99 03/[address] CHEM PANEL BUN 26 7 - 22 03/[address] CHEM PANEL Creatinine 1.66 0.50 - 03/12 [place] Lvl 1.40 [facility] CHEM PANEL Sodium Lvl 138 135 - 145 03/[address] CHEM PANEL Potassium Lvl 4.1 3.5 - 5.1 03/[address] CHEM PANEL Chloride Lvl 103 95 - 109 03/[address] CHEM PANEL CO2 28 24 - 32 03/[address] CHEM PANEL Calcium Lvl 9.3 8.5 - 10.5 03/12 [place] as [facility] CHEM PANEL AGAP 11.1 10.0 - 03/12 [place] 20.0 [facility] CHEM PANEL eGFR 41 03/12 Result Comment: The Medical eGFR is Center calculated using the CKD-EPI formula. In most young, healthy individuals the eGFR will be >90 mL/min/1.73m2 . The eGFR declines with age. An eGFR of 60-89 may be normal in some populations, particularly the elderly, for whom the CKD-EPI formula has not been extensively validated. Use of the eGFR is not recommended in the following populations:< br/>
Janine viduals with unstable creatinine concentration s, including patients and those with serious co-morbid conditions.<b r/>
Patie nts with extremes in muscle mass or diet.

The data above are obtained from the National Kidney Disease Education Program (NKDEP) which additionally recommends that when the eGFR is used in patients with extremes of body mass index for purposes of drug dosing, the eGFR should be multiplied by the estimated BMI. HEMATOLOGY WBC 10.6 3.7 - 10.4 03/12 [facility] HEMATOLOGY RBC 4.07 4.70 - 03/12 [place] 6.10 [facility] HEMATOLOGY Hgb 12.1 14.0 - 03/12 [place] 18.0 [facility] HEMATOLOGY Hct 36.2 42.0 - 03/12 [place] 54.0 [facility] HEMATOLOGY MCV 88.9 80.0 - 03/12 [place] 94.0 [facility] HEMATOLOGY MCH 29.7 27.0 - 03/12 [place] 31.0 [facility] HEMATOLOGY MCHC 33.5 32.0 - 03/12 [place] 36.0 [facility] HEMATOLOGY RDW 14.9 11.5 - 03/12 [facility] 14.5 [facility] HEMATOLOGY Platelet 209 133 - 450 03/[address] HEMATOLOGY MPV 8.2 7.4 - 10.4 03/[address] HEMATOLOGY Sed Rate 52 0 - 15 03/[address] HEMATOLOGY Segs 75.6 45.0 - 03/12 [facility] 75.0 [facility] HEMATOLOGY Lymphocytes 15.3 20.0 - 03/12 [place] 40.0 [facility] HEMATOLOGY Monocytes 7.3 2.0 - 12.0 03/[address] HEMATOLOGY Eosinophils 1.3 0.0 - 4.0 03/12 [facility]2019 [facility] HEMATOLOGY Basophils 0.5 0.0 - 1.0 03/[address] HEMATOLOGY Neutrophils # 8.0 1.5 - 8.1 03/[address] HEMATOLOGY Lymphocytes # 1.6 1.0 - 5.5 03/[address] HEMATOLOGY Monocytes # 0.8 0.0 - 0.8 03/[address] HEMATOLOGY Eosinophils # 0.1 0.0 - 0.5 03/[address] HEMATOLOGY Basophils # 0.1 0.0 - 0.2 03/12 [facility]2019 [facility] IMMUNOLOGY C-REACTIVE 118.0 <=2.9 mg/L 03/12 [facility] Culture: 10,000 - 10/26 [facility] Urine 50,000 [facility] CFU/mL [place] Staphyloco ccus aureus , Sensitivit y Pending URINE AND UA Color Yellow Yellow 10/26 [facility] STOOL *NA* [facility] (10/26/18 8:08 AM) [place] URINE AND UA Turbidity Marked Clear 10/26 [facility] *ABN* [facility] (10/26/18 8:08 AM) [place] URINE AND UA Spec Grav 1.018 <=1.030 10/26 [facility] URINE AND UA pH 5.0 5.0 - 8.0 10/26 [facility] STOOL /2018 [facility] URINE AND UA Protein 100 mg/dL Negative 10/26 [facility] STOOL mg/dL [facility] URINE AND UA Glucose Negative Negative 10/26 [facility] STOOL mg/dL mg/dL [facility] URINE AND UA Ketones Negative Negative 10/26 [facility] mg/dL mg/dL [facility] URINE AND UA Bili Negative Negative 10/26 [facility] STOOL *NA* [facility] (10/26/18 8:08 AM) [place] URINE AND UA Blood Moderate Negative 10/26 [facility] STOOL *ABN* [facility] (10/26/18 8:08 AM) [place] URINE AND UA <1.0 0.1 - 1.0 10/26 [facility] Urobilinogen /2018 [facility] URINE AND UA Nitrite Negative Negative 10/26 [facility] (10/26/18 8:08 AM) /[facility] URINE AND UA Leuk Est Moderate Negative 10/26 [facility] STOOL *ABN* /2018 Medical (10/26/18 8:08 AM) Center URINE AND UA WBC >182 0 - 5 10/26 [facility] STOOL /2018 [facility] URINE AND UA RBC 86 0 - 2 10/26 [facility] STOOL [facility] URINE AND UA Bacteria Many /HPF None Seen 10/26 [place] STOOL /HPF /2018 [facility] URINE AND UA Mucus Moderate None Seen 10/26 [facility] STOOL /LPF /LPF /2018 [facility] URINE AND UA Sq Epi None Seen 10/26 [facility] ELECTROLYTE AGAP 10.9 10.0 - 10/26 [facility] S 20.0 [facility] ELECTROLYTE Glucose Lvl 87 70 - 99 10/26 [facility] S /2018 [facility] ELECTROLYTE BUN 22 7 - 22 10/26 [facility] S [facility] ELECTROLYTE Creatinine 2.12 0.50 - 10/26 [facility] S Lvl 1.40 [facility] ELECTROLYTE Sodium Lvl 137 135 - 145 10/26 [place] [facility] ELECTROLYTE Potassium Lvl 3.9 3.5 - 5.1 10/26 [place] [facility] ELECTROLYTE Chloride Lvl 105 95 - 109 10/26 [place] [facility] ELECTROLYTE CO2 25 24 - 32 10/26 [facility] S /2018 [facility] ELECTROLYTE Calcium Lvl 7.9 8.5 - 10.5 10/26 [place] [facility] ELECTROLYTE eGFR 31 10/26 Result [facility] S Comment: The Medical eGFR is Center calculated using the CKD-EPI formula. In most young, healthy individuals the eGFR will be >90 mL/min/1.73m2 . The eGFR declines with age. An eGFR of 60-89 may be normal in some populations, particularly the elderly, for whom the CKD-EPI formula has not been extensively validated. Use of the eGFR is not recommended in the following populations:< br/>
Janine viduals with unstable creatinine concentration s, including patients and those with serious co-morbid conditions.<b r/>
Patie nts with extremes in muscle mass or diet.

The data above are obtained from the National Kidney Disease Education Program (NKDEP) which additionally recommends that when the eGFR is used in patients with extremes of body mass index for purposes of drug dosing, the eGFR should be multiplied by the estimated BMI. HEMATOLOGY Segs 80.2 45.0 - 10/26 [facility] 75.0 [facility] HEMATOLOGY Lymphocytes 12.9 20.0 - 10/26 [place] 40.0 [facility] HEMATOLOGY Monocytes 3.8 2.0 - 12.0 10/26 [facility]2018 [facility] HEMATOLOGY Eosinophils 2.1 0.0 - 4.0 10/26 [facility]2018 [facility] HEMATOLOGY Basophils 1.0 0.0 - 1.0 10/26 [facility]2018 [facility] HEMATOLOGY Neutrophils # 4.5 1.5 - 8.1 10/26 [facility] HEMATOLOGY Lymphocytes # 0.7 1.0 - 5.5 10/26 [facility] HEMATOLOGY Monocytes # 0.2 0.0 - 0.8 10/26 [facility]2018 [facility] HEMATOLOGY Eosinophils # 0.1 0.0 - 0.5 10/26 [facility] HEMATOLOGY Basophils # 0.1 0.0 - 0.2 10/26 [facility]2018 [facility] HEMATOLOGY WBC 5.6 3.7 - 10.4 10/[address] HEMATOLOGY RBC 3.24 4.70 - 10/26 [place] 6.10 [facility] HEMATOLOGY Hgb 10.5 14.0 - 10/26 [place] 18.0 [facility] HEMATOLOGY Hct 30.1 42.0 - 10/26 54.0 [facility] HEMATOLOGY MCV 92.9 80.0 - 10/26 [facility] 94.0 [facility] HEMATOLOGY MCH 32.3 27.0 - 10/26 [place] 31.0 [facility] HEMATOLOGY MCHC 34.7 32.0 - 10/26 [place] 36.0 [facility] HEMATOLOGY RDW 13.1 11.5 - 10/26 [place] 14.5 2019 [facility] HEMATOLOGY Platelet 280 133 - 450 10/26 [facility]2018 [facility] HEMATOLOGY MPV 8.1 7.4 - 10.4 10/[address] CHEM PANEL Magnesium Lvl 2.3 1.8 - 2.4 10/[address] CHEM PANEL Phosphorus 2.1 2.5 - 4.5 10/25 [facility]2018 [facility] ELECTROLYTE AGAP 10.1 10.0 - 10/25 [facility] S 20.0 [facility] ELECTROLYTE Glucose Lvl 82 70 - 99 10/25 [facility]2018 [facility] ELECTROLYTE BUN 21 7 - 22 10/25 [facility]2018 [facility] ELECTROLYTE Creatinine 2.01 0.50 - 10/25 [facility] S Lvl 1.40 [facility] ELECTROLYTE Sodium Lvl 137 135 - 145 10/25 [facility] ELECTROLYTE Potassium Lvl 4.1 3.5 - 5.1 10/25 [place] [facility] ELECTROLYTE Chloride Lvl 106 95 - 109 10/25 [facility] ELECTROLYTE CO2 25 24 - 32 10/25 [facility]2018 [facility] ELECTROLYTE Calcium Lvl 8.0 8.5 - 10.5 10/25 [facility] ELECTROLYTE eGFR 33 10/25 [facility] Comment: The Medical eGFR is Center calculated using the CKD-EPI formula. In most young, healthy individuals the eGFR will be >90 mL/min/1.73m2 . The eGFR declines with age. An eGFR of 60-89 may be normal in some populations, particularly the elderly, for whom the CKD-EPI formula has not been extensively validated. Use of the eGFR is not recommended in the following populations:< br/>
Janine viduals with unstable creatinine concentration s, including patients and those with serious co-morbid conditions.<b r/>
Patie nts with extremes in muscle mass or diet.

The data above are obtained from the National Kidney Disease Education Program (NKDEP) which additionally recommends that when the eGFR is used in patients with extremes of body mass index for purposes of drug dosing, the eGFR should be multiplied by the estimated BMI. HEMATOLOGY Neutrophils # 4.1 1.5 - 8.1 10/25 [facility] HEMATOLOGY Lymphocytes # 0.4 1.0 - 5.5 10/25 [facility] HEMATOLOGY Monocytes # 0.2 0.0 - 0.8 10/25 [facility] HEMATOLOGY Eosinophils # 0.1 0.0 - 0.5 10/25 [facility] [address] [place] [address] HEMATOLOGY Basophils # 0.0 0.0 - 0.2 10/[address] HEMATOLOGY Segs 81.0 45.0 - 10/25 [place] 75.0 2019 [facility] HEMATOLOGY Bands 1.0 0.0 - 11.0 10/[address] HEMATOLOGY Lymphocytes 9.0 20.0 - 10/25 [place] 40.0 2019 [facility] HEMATOLOGY Monocytes 5.0 2.0 - 12.0 10/[address] HEMATOLOGY Eosinophils 2.0 0.0 - 4.0 10/25 [facility]2018 [facility] HEMATOLOGY Basophils 1.0 0.0 - 1.0 10/[address] HEMATOLOGY Metamyelocyte 1.0 0.0 - 1.0 10/25 [facility] HEMATOLOGY Atypical 0.0 <=0.0 % 10/25 [facility] Lymphs [facility] HEMATOLOGY WBC 5.0 3.7 - 10.4 10/[address] HEMATOLOGY RBC 3.44 4.70 - 10/25 [facility] 6.10 2019 [facility] HEMATOLOGY Hgb 11.0 14.0 - 10/25 [facility] 18.0 2019 [facility] HEMATOLOGY Hct 32.5 42.0 - 10/25 [facility] 54.0 2019 [facility] HEMATOLOGY MCV 94.3 80.0 - 10/25 [facility] 94.0 2019 [facility] HEMATOLOGY MCH 32.0 27.0 - 10/25 [place] 31.0 2019 [facility] HEMATOLOGY MCHC 33.9 32.0 - 10/25 [place] 36.0 2019 [facility] HEMATOLOGY RDW 13.3 11.5 - 10/25 [facility] 14.5 2019 [facility] HEMATOLOGY Platelet 219 133 - 450 10/[address] HEMATOLOGY MPV 8.1 7.4 - 10.4 10/[address] CHEM PANEL Glucose Lvl 113 70 - 99 10/[address] CHEM PANEL BUN 21 7 - 22 10/[address] CHEM PANEL Creatinine 2.02 0.50 - 10/23 [facility] Lvl 1.40 [facility] CHEM PANEL Sodium Lvl 138 135 - 145 10/23 [facility] CHEM PANEL Potassium Lvl 3.8 3.5 - 5.1 10/23 [facility] [place] [facility] CHEM PANEL Chloride Lvl 106 95 - 109 10/23 [facility] CHEM PANEL CO2 24 24 - 32 10/23 [facility] CHEM PANEL AGAP 11.8 10.0 - 10/23 [place] 20.0 [facility] CHEM PANEL Calcium Lvl 7.7 8.5 - 10.5 10/23 [facility] CHEM PANEL eGFR 32 10/23 Result Comment: The Medical eGFR is Center calculated using the CKD-EPI formula. In most young, healthy individuals the eGFR will be >90 mL/min/1.73m2 . The eGFR declines with age. An eGFR of 60-89 may be normal in some populations, particularly the elderly, for whom the CKD-EPI formula has not been extensively validated. Use of the eGFR is not recommended in the following populations:< br/>
Janine viduals with unstable creatinine concentration s, including patients and those with serious co-morbid conditions.<b r/>
Patie nts with extremes in muscle mass or diet.

The data above are obtained from the National Kidney Disease Education Program (NKDEP) which additionally recommends that when the eGFR is used in patients with extremes of body mass index for purposes of drug dosing, the eGFR should be multiplied by the estimated BMI. URINE AND UA Sq Epi Occasional Few /LPF 10/23 [facility] STOOL /LPF [facility] URINE AND UA WBC 13 0 - 5 10/23 [facility] [address] [place] [address] URINE AND UA Bacteria Occasional None Seen 10/23 [facility] [place] STOOL /HPF /HPF [facility] URINE AND UA Mucus Few /LPF None Seen 10/23 [facility] /LPF [facility] URINE AND UA Uric Ac Moderate None Seen 10/23 [facility] Adore /HPF /HPF [facility] URINE AND UA Hyal Cast 1 0 - 2 10/23 [facility] [address] [place] [address] URINE AND UA Color Yellow Yellow 10/23 [facility] *NA* /2018 [facility] (10/23/18 9:32 AM) Center URINE AND UA Turbidity Slight Cloudy Clear 10/23 [facility] STOOL (10/23/18 9:32 AM) /2018 [facility] URINE AND UA Spec Grav 1.020 <=1.030 10/23 [facility] STOOL /2018 [facility] URINE AND UA pH 6.0 5.0 - 8.0 10/23 [facility] STOOL /2018 [facility] URINE AND UA Protein Trace Negative 10/23 [facility] *ABN* /2018 [facility] (10/23/18 9:32 AM) [place] URINE AND UA Glucose Negative Negative 10/23 [facility] (10/23/18 9:32 AM) /2018 [facility] URINE AND UA Ketones Negative Negative 10/23 [facility] *NA* /2018 [facility] (10/23/18 9:32 AM) [place] URINE AND UA Bili Negative Negative 10/23 [facility] *NA* /2018 [facility] (10/23/18 9:32 AM) [place] URINE AND UA Blood Moderate Negative 10/23 [facility] *ABN* [facility] (10/23/18 9:32 AM) [place] URINE AND UA 0.2 0.1 - 1.0 10/23 [facility] Urobilinogen /2018 [facility] URINE AND UA Nitrite Negative Negative 10/23 [facility] (10/23/18 9:32 AM) [facility] URINE AND UA Leuk Est Negative Negative 10/23 [facility] (10/23/18 9:32 AM) [facility] CHEM PANEL Magnesium Lvl 2.2 1.8 - 2.4 10/23 [facility] [place] [facility] CHEM PANEL Phosphorus 1.6 2.5 - 4.5 10/23 [facility] CHEM PANEL Total Protein 5.4 6.4 - 8.4 10/23 [facility] CHEM PANEL Albumin Lvl 1.7 3.5 - 5.0 10/23 [place] [facility] CHEM PANEL Globulin 3.7 2.7 - 4.2 10/23 [facility] CHEM PANEL A/G Ratio 0.5 0.7 - 1.6 10/23 [place] [facility] CHEM PANEL ALT 41 0 - 65 10/23 [facility] CHEM PANEL AST 52 0 - 37 10/23 [place] [facility] CHEM PANEL Alk Phos 52 39 - 136 10/23 [facility] CHEM PANEL Bili Total 0.7 0.2 - 1.3 10/23 [facility] [address] [place] [address] CHEM PANEL Bili Direct <0.05 0.0 - 0.3 10/23 [facility] CHEM PANEL Bili Indirect Unable to 0.0 - 1.0 10/23 [facility] Calculate [facility] HEMATOLOGY Segs 79.1 45.0 - 10/23 [facility] 75.0 [facility] HEMATOLOGY Lymphocytes 9.9 20.0 - 10/23 [facility] 40.0 [facility] HEMATOLOGY Monocytes 7.4 2.0 - 12.0 10/[address] HEMATOLOGY Eosinophils 3.0 0.0 - 4.0 10/23 [facility] HEMATOLOGY Basophils 0.6 0.0 - 1.0 10/[address] HEMATOLOGY Neutrophils # 4.3 1.5 - 8.1 10/23 [facility] [address] [place] [address] HEMATOLOGY Lymphocytes # 0.5 1.0 - 5.5 10/23 [facility] HEMATOLOGY Monocytes # 0.4 0.0 - 0.8 10/23 [facility] HEMATOLOGY Eosinophils # 0.2 0.0 - 0.5 10/23 [facility] [address] [place] [address] HEMATOLOGY WBC 5.5 3.7 - 10.4 10/[address] HEMATOLOGY RBC 3.29 4.70 - 10/23 [facility] 6.10 [facility] HEMATOLOGY Hgb 10.7 14.0 - 10/23 [facility] 18.0 [facility] HEMATOLOGY Hct 31.2 42.0 - 10/23 [facility] 54.0 2019 [facility] HEMATOLOGY MCV 95.0 80.0 - 10/23 [facility] 94.0 2019 [facility] HEMATOLOGY MCH 32.5 27.0 - 10/23 [facility] 31.0 2019 [facility] HEMATOLOGY MCHC 34.2 32.0 - 10/23 [facility] 36.0 2019 [facility] HEMATOLOGY RDW 13.4 11.5 - 10/23 [facility] 14.5 2019 [facility] HEMATOLOGY Platelet 103 133 - 450 10/23 [facility]2018 [facility] HEMATOLOGY MPV 9.7 7.4 - 10.4 10/[address] Culture: <10,000 10/22 [facility] Urine CFU/mL /2018 [facility] Skin Liv [place] CHEM PANEL Albumin Lvl 1.9 3.5 - 5.0 10/22 [place] [facility] CHEM PANEL Phosphorus 1.7 2.5 - 4.5 10/22 [facility] CHEM PANEL Magnesium Lvl 2.4 1.8 - 2.4 10/22 [place] [facility] CHEM PANEL Phosphorus 1.6 2.5 - 4.5 10/22 [facility] HEMATOLOGY RBC Morph Normal Normal 10/22 [facility] (10/22/18 6:24 AM) [facility] HEMATOLOGY Plt Morph Normal Normal 10/22 [facility] (10/22/18 6:24 AM) [facility] HEMATOLOGY Toxic Gran Slight 10/22 [facility] URINE AND UA Color Yellow Yellow 10/21 [facility] STOOL *NA* [facility] (10/21/18 4:38 PM) [place] URINE AND UA Turbidity Marked Clear 10/21 [facility] *ABN* [facility] (10/21/18 4:38 PM) [place] URINE AND UA Spec Grav 1.011 <=1.030 10/21 [facility] /2018 [facility] URINE AND UA pH 5.0 5.0 - 8.0 10/21 [facility] URINE AND UA Protein 30 mg/dL Negative 10/21 [facility] STOOL mg/dL [facility] URINE AND UA Glucose Negative Negative 10/21 [facility] mg/dL mg/dL [facility] URINE AND UA Ketones Negative Negative 10/21 [facility] mg/dL mg/dL [facility] URINE AND UA Bili Negative Negative 10/21 [facility] STOOL *NA* [facility] (10/21/18 4:38 PM) [place] URINE AND UA Blood Large Negative 10/21 [facility] STOOL *ABN* [facility] (10/21/18 4:38 PM) [place] URINE AND UA <1.0 0.1 - 1.0 10/21 [facility] Urobilinogen /2018 [facility] URINE AND UA Nitrite Negative Negative 10/21 [facility] (10/21/18 4:38 PM) [facility] URINE AND UA Leuk Est Trace Negative 10/21 [facility] STOOL *ABN* [facility] (10/21/18 4:38 PM) [place] URINE AND UA Sq Epi Occasional Few /LPF 10/21 [facility] STOOL /LPF /2018 [facility] URINE AND UA WBC 17 0 - 5 10/21 [facility] URINE AND UA RBC 81 0 - [address] [facility] URINE AND UA Bacteria Occasional None Seen 10[place] ST[place]OL /HPF /HPF /2018 [facility] Center URINE AND UA Mucus Few /LPF None Seen 10/21 [facility] STOOL /LPF [facility] URINE AND UA Amorph Few /HPF None Seen 10/21 [facility] STOOL Adore /HPF /2018 [facility] CHEM PANEL Albumin Lvl 1.9 3.5 - 5.0 10[place] [facility] CHEM PANEL Vitamin D, 11.7 30.0 - 10/21 [facility] 25-OH, Total 100.0 [facility] PARATHYROID PTH Intact 54.2 18.4 - 10/21 [place] PROFILE 80.1 [facility] URINE CHEM U Creatinine 72.70 10/[address] URINE CHEM U Protein 114.3 10/20 [facility] URINE CHEM U Prot/Creat 1.57 10/[address] HEMATOLOGY Heparin Negative 9 Negative 10/20 Result [facility] Ab(EWELINA) (10/20/18 9:45 AM) Comment: This Medical assay detects Center heparin antibodies of IgG isotype. Antibodies of other isotypes have been reported to cause heparin-induc ed thrombocytope katelyn. Therefore, if there is a strong clinical suspicion of HIT, additional study with a serotonin release assay is recommented. HEMATOLOGY Pat Od Value 0.073 10/20 [facility] HEMATOLOGY Pos CO Value 0.400 10/20 [facility] PARATHYROID Ca Ion WB 1.04 1.05 - 10/20 [place] PROFILE 1. [facility] PARATHYROID Ca Norm WB 1.07 1.05 - 10/20 [facility] PROFILE 1. [facility] URINE CHEM U Creatinine 210.00 10/19 [facility]2018 [facility] URINE CHEM U Sodium 10 10/[address] URINE CHEM U Potassium 68.5 10/[address] URINE CHEM U Chloride 22 10/19 [facility] PENICILLIN: Culture: 10,000 - 10/19 [facility] SUSC:PT:ISO Urine 50,000 /2018 Medical LATE:ORDQN: CFU/mL Center JERALD Staphyloco ccus aureus PENICILLIN: Staphylococcu Staphyloco 10/19 [facility] SUSC:PT:ISO s aureus ccus /2018 Medical LATE:ORDQN: aureus Center JERALD URINE AND UA RBC 24 0 - 2 10/19 [facility] URINE AND UA Renal Epi 3 <=0 /LPF 10/19 [facility] URINE AND UA Hyal Cast 1 0 - 2 10/19 [facility] HEMATOLOGY RBC Morph Normal Normal 10/19 [facility] (10/19/18 12:29 AM) [facility] HEMATOLOGY Plt Morph Normal Normal 10/19 [facility] (10/19/18 12:29 AM) [facility] HEMATOLOGY Basophils # 0.1 0.0 - 0.2 10/19 [facility] HEMATOLOGY Toxic Gran slight 10/19 [facility] HEMATOLOGY Neut Vac slight 10/19 [facility] IMMUNOLOGY FANNY Positive Negative 10/19 [facility] (10/19/18 12:29 AM) [place] IMMUNOLOGY DNA Ab (DS) Negative Negative 10/19 [facility] (10/19/18 12:29 AM) [facility] IMMUNOLOGY Sm Ab <0.2 <=0.9 AI 10/19 [facility] IMMUNOLOGY SS-A (Ro) Ab <0.2 <=0.9 AI 10/19 [facility] IMMUNOLOGY SS-B (La) Ab <0.2 <=0.9 AI 10/19 [facility] IMMUNOLOGY HTLV I/II Ab Negative Negative 10/19 Result [facility] Comment: Medical Performed At: [facility]
[address] [place] [address] [address] [place], [place] [id number]<br/ >Ishaan Vergara PhD Ph:[phone] IMMUNOLOGY FANNY Titer 1:160 [facility] (10/19/18 12:29 AM) [place] IMMUNOLOGY FANNY Interp Pattern 10/19 [facility] IMMUNOLOGY SURVEY RODMAN Ab 0.4 <=0.9 AI 10/19 [facility] PARATHYROID Ca Ion WB 1.03 1.05 - 10/19 [facility] [place] PROFILE 03.11 [facility] PARATHYROID Ca Norm WB 1.05 . - 10/19 [facility] PROFILE 03.11 [facility] REFERENCE Neuromyelitis Negative Negative 10/17 Result [facility] LAB RESULTS [facility] Comment: Medical Recommend [place] repeat testing in 6 months if clinical suspicion<br/ >is high. Negative result can occur in the setting of
immuno suppression.< br/>--------- ADD ITIONAL INFORMATION-- ----
This test was developed and its performance characteristi cs
determ ined by [facility] in a manner consistent with CLIA
requ irements. This test has not been cleared or approved by
the U.S. Food and Drug Administratio n.
Per formed At: ML [facility] [address] [place], [place] [id number]<br/ >Monae Gil Ph:[phone] METAL Zinc Lvl 95 56 - 134 10/13 Result Comment: This Medical test was Center developed and its performance characteristi cs
determ ined by [facility]. It has not been cleared or
approv ed by the Food and Drug Administratio n.
Detection Limit = 5
Perform ed At: [facility] [place]
[address] [place], [place] [id number]<br/ >Devan Iqbal MD Ph:[phone] BODY FLUIDS Tube Num CSF 1 10/11 [place] [facility] BODY FLUIDS Color CSF Light Red Colorless 10/11 [place] *ABN* /2018 [facility] (10/11/18 3:37 PM) [place] BODY FLUIDS Clarity CSF Moderate Clear 10/11 [place] *ABN* /2018 [facility] (10/11/18 3:37 PM) [place] BODY FLUIDS Supernat CSF Colorless Colorless 10/11 [place] (10/11/18 3:37 PM) /2018 Medica l [place] BODY FLUIDS Nucleated 11 0 - 53 10/11 [place] Cells CSF [facility] BODY FLUIDS RBC CSF 53009 0 - 03 10/11 [facility] BODY FLUIDS Neutrophils 54 0 - 6 10/11 [facility] CSF [facility] BODY FLUIDS Lymph CSF 42 40 - 80 10/11 [facility] BODY FLUIDS Monocyte CSF 2 15 - 45 10/11 [place] [facility] BODY FLUIDS Eos CSF 2 10/11 [facility] BODY FLUIDS Glucose CSF 68 45 - 80 10/11 [facility] BODY FLUIDS Protein CSF 136 15 - 45 10/11 Result Comment: Medical "Significant Center Findings called to Keli Celaya at 10/11/2018 18:17 by AA. Read Back OK." BODY FLUIDS Tube Num CSF 4 10/11 [place] [facility] BODY FLUIDS Color CSF Light Red Colorless 10/11 [place] *ABN* /2018 [facility] (10/11/18 3:37 PM) Center BODY FLUIDS Clarity CSF Moderate Clear [facility] (10/11/18 3:37 PM) Center BODY FLUIDS Supernat CSF Colorless Colorless 10/11 [facility] (10/11/18 3:37 PM) Medica l [place] BODY FLUIDS Nucleated 2 0 - 53 10/11 [facility] Cells CSF [facility] BODY FLUIDS RBC CSF 91698 0 - 03 10/11 [facility] BODY FLUIDS Neutrophils 58 0 - 6 10/11 [facility] BODY FLUIDS Lymph CSF 36 40 - 80 10/11 [facility] BODY FLUIDS Monocyte CSF 4 15 - 45 10/11 [place] [facility] BODY FLUIDS Eos CSF 2 10/11 [facility] BODY FLUIDS Lactic Acid 2.7 0.6 - 2.2 10/11 [place] CSF [facility] BODY FLUIDS [id number] 1.6 Not Estab. 10/11 Result [facility] lobulin CSF mg/L Comment: Medical Note: There Center is no standard-<br/ >ized protocol for testing
C SF with this procedure.

Performe d At: [facility] [place]
[address] [place], [place] [id number]<br/ >Devan Iqbal MD Ph:[phone] IMMUNOLOGY Description The gel 10/11 [facility] CSF demonstrat /2018 [facility] appropriat e resolution of the main protein bands. The gamma region shows continuous distributi on of proteins both in the CSF and in the serum. No oligoclona l bands are detected. IMMUNOLOGY PE Interp CSF CSF 10/11 [place] [facility] res[facility] did not reveal evidence of an oligoclona l process in the [employer]RIER. The CSF IgG index is within the reference range indicating that there is no elevation in intracereb ral IgG synthesis. The CSF/serum albumin ratio is elevated that is most likely due to blood admixture to CSF specimen (the CSF RBC count is 37,700/ mm3). The electronic medical record has been reviewed for relevant history. I have personally reviewed the test results and concur with the resident's interpreta tion. CPT: 70371-IP IMMUNOLOGY Alb (CPE) 3100.0 3400.0 - 10/11 [facility] 5000.0 [facility] IMMUNOLOGY IgG Lvl CSF 12.3 2.0 - 4.0 10/11 [facility] s [facility] IMMUNOLOGY IgG (CPE) [id number] - 1618 10/11 [facility] IMMUNOLOGY IgG Index 0.4 0.3 - 0.7 10/11 [facility] IMMUNOLOGY Alb CSF (CPE) 88.5 14.0 - 10/11 [facility] IMMUNOLOGY JJ CSF 2 <=3 unit/L 10/11 [facility] Gram Stain Gram Stain 10/11 [facility] Report Performed Medical By: [facility] Culture: CSF No Growth 10/11 [facility] w/Gram Stain /2018 [facility] IMMUNOLOGY Albumin % 54.8 55.8 - 10/11 [place] 66.1 [facility] IMMUNOLOGY Alpha 1 % 5.6 2.8 - 4.9 10/11 [facility] IMMUNOLOGY Alpha 2 % 10.7 7.0 - 11.9 10/11 [facility] IMMUNOLOGY Beta % 13.0 7.8 - 13.7 10/11 [facility] IMMUNOLOGY Gamma % 15.9 11.1 - 10/11 [place] 18.7 [facility] IMMUNOLOGY Albumin (SPE) 3.23 3.57 - 10/11 [place] 5.55 [facility] IMMUNOLOGY Alpha 1 Glob 0.33 0.18 - 10/11 [place] 0.41 /2018 [facility] IMMUNOLOGY Alpha 2 Glob 0.63 0.45 - 10/11 [place] 1.00 /2018 [facility] IMMUNOLOGY Beta Glob 0.77 0.50 - 10/11 1.15 /2018 [facility] IMMUNOLOGY Gamma Glob 0.94 0.71 - 10/11 1.57 /2018 [facility] IMMUNOLOGY Tot Prot 5.9 6.4 - 8.4 10/11 [facility] (SPE) [facility] IMMUNOLOGY SPE Interp Capillary 10/11 [facility] electropho /2018 Medical resis does Center not demonstrat e any feature consistent with the presence of a monoclonal gammopathy . Total protein level is reduced. Serum protein electropho resis shows reduced albumin with normal distributi on of the other main protein fractions. Serum protein electropho resis features are consistent with protein loss. The electronic medical record has been reviewed for relevant history. I have personally reviewed the test results and concur with the resident's interpreta tion. CPT 54921-EH SPECIAL JJ 12 8 - 52 10/11 [facility] CHEMISTRY [facility] HEMATOLOGY R-time 4.2 5.0 - 10.0 10/11 [facility] HEMATOLOGY K-time 1.3 1.0 - 3.0 10/11 [facility] HEMATOLOGY Angle 71.3 53.0 - 10/11 [place] 72.0 [facility] HEMATOLOGY Max Amp 65.2 50.0 - 10/11 [place] 70.0 [facility] HEMATOLOGY G-value 9.4 4.5 - 11.0 10/11 [facility] HEMATOLOGY Ly30 1.0 0.0 - 7.5 10/11 [facility] HEMATOLOGY Coag Index 2.4 -3.0-3.0 - 10/11 [place] 3.0 [facility] HEMATOLOGY TEG Data See Note 10/11 [facility] (10/11/18 3:03 AM) /2018 [facility] HEMATOLOGY TEG Interp Thrombelas 10/11 [place] to[place] [facility] show shortened value of R. This finding is suggestive of enzymatic hypercoagu lation. CPT:37683 HEMATOLOGY PT 13.5 12.0 - 10/11 [place] 14.7 [facility] HEMATOLOGY INR 1.05 0.85 - 10/11 [facility] [place] 1.17 [facility] HEMATOLOGY PTT 34.6 22.9 - 10/11 [place] 35.8 [facility] BLOOD BANK ABO/Rh A POS 10/10 [facility] RESULTS [facility] BLOOD BANK Antibody Scrn Negative 10/10 [facility] RESULTS (10/10/18 6:24 AM) [facility] CHEM PANEL B/C Ratio 31 6 - 25 10/09 2018 [facility] CHEM PANEL Globulin 3.8 2.7 - 4.2 10/09 [facility] CHEM PANEL A/G Ratio 0.7 0.7 - 1.6 10/09 [facility] CHEM PANEL Total Protein 6.6 6.4 - 8.4 10/09 [facility] CHEM PANEL ALT 28 0 - 65 10/09 2018 [facility] CHEM PANEL AST 73 0 - 37 10/09 [facility] CHEM PANEL Alk Phos 36 39 - 136 10/09 [facility] CHEM PANEL Bili Total 1.0 0.2 - 1.3 10/09 [facility] HEMATOLOGY PT 14.6 12.0 - 10/09 [place] 14.7 [facility] HEMATOLOGY PTT 33.1 22.9 - 10/09 [place] 35.8 [facility] HEMATOLOGY INR 1.16 0.85 - 10/09 [facility] 1.17 [facility] CHEM PANEL Glucose Lvl 128 70 - 99 10/06 [facility] CHEM PANEL BUN 41 7 - 22 10/06 [facility] CHEM PANEL Creatinine 1.42 0.50 - 10/06 [place] Lvl 1.40 [facility] CHEM PANEL Sodium Lvl 141 135 - 145 10/06 [facility] CHEM PANEL Potassium Lvl 4.2 3.5 - 5.1 10/06 [place] [facility] CHEM PANEL Chloride Lvl 108 95 - 109 10/06 [place] [facility] CHEM PANEL CO2 24 24 - 32 10/06 [facility] CHEM PANEL Calcium Lvl 8.3 8.5 - 10.5 10/06 [place] [facility] CHEM PANEL eGFR 50 10/06 [facility] Comment: The Medical eGFR is Center calculated using the CKD-EPI formula. In most young, healthy individuals the eGFR will be >90 mL/min/1.73m2 . The eGFR declines with age. An eGFR of 60-89 may be normal in some populations, particularly the elderly, for whom the CKD-EPI formula has not been extensively validated. Use of the eGFR is not recommended in the following populations:< br/>
Janine viduals with unstable creatinine concentration s, including patients and those with serious co-morbid conditions.<b r/>
Patie nts with extremes in muscle mass or diet.

The data above are obtained from the National Kidney Disease Education Program (NKDEP) which additionally recommends that when the eGFR is used in patients with extremes of body mass index for purposes of drug dosing, the eGFR should be multiplied by the estimated BMI. CHEM PANEL AGAP 13.2 10.0 - 10/06 [place] 20.0 [facility] CHEM PANEL Magnesium Lvl 2.5 1.8 - 2.4 10/06 [place] [facility] CHEM PANEL Phosphorus 3.9 2.5 - 4.5 10/06 [facility] HEMATOLOGY WBC 5.9 3.7 - 10.4 10/06 [facility] HEMATOLOGY RBC 4.16 4.70 - 10/06 [place] 6.10 [facility] HEMATOLOGY Hgb 13.3 14.0 - 10/06 [place] 18.0 [facility] HEMATOLOGY Hct 38.0 42.0 - 10/06 [place] 54.0 [facility] HEMATOLOGY MCV 91.2 80.0 - 10/06 [place] 94.0 [facility] HEMATOLOGY MCH 31.9 27.0 - 10/06 [place] 31.0 [facility] HEMATOLOGY MCHC 35.0 32.0 - 10/06 [place] 36.0 [facility] HEMATOLOGY RDW 12.7 11.5 - 10/06 [place] 14.5 [facility] HEMATOLOGY Platelet 214 133 - 450 10/06 2018 [facility] HEMATOLOGY MPV 8.9 7.4 - 10.4 10/06 2018 [facility] HEMATOLOGY Segs 82.9 45.0 - 10/06 [place] 75.0 [facility] HEMATOLOGY Lymphocytes 12.1 20.0 - 10/06 [place] 40.0 [facility] HEMATOLOGY Monocytes 4.6 2.0 - 12.0 10/[address] HEMATOLOGY Eosinophils 0.1 0.0 - 4.0 10/[address] HEMATOLOGY Basophils 0.3 0.0 - 1.0 10/[address] HEMATOLOGY Neutrophils # 4.9 1.5 - 8.1 10/[address] HEMATOLOGY Lymphocytes # 0.7 1.0 - 5.5 10/[address] HEMATOLOGY Monocytes # 0.3 0.0 - 0.8 10/[address] CHEM PANEL Magnesium Lvl 2.6 1.8 - 2.4 10/[address] CHEM PANEL Phosphorus 4.2 2.5 - 4.5 10/[address] ELECTROLYTE AGAP 13.4 10.0 - 10/05 [facility] 20.0 [facility] ELECTROLYTE Glucose Lvl 122 70 - 99 10/05 [facility]2018 [facility] ELECTROLYTE BUN 45 7 - 22 10/05 [facility] ELECTROLYTE Creatinine 1.42 0.50 - 10/05 [facility] Lvl 1.40 [facility] ELECTROLYTE Sodium Lvl 145 135 - 145 10/05 [facility]2018 [facility] ELECTROLYTE Potassium Lvl 4.4 3.5 - 5.1 10/05 [place] [facility] ELECTROLYTE Chloride Lvl 109 95 - 109 10/05 [facility] ELECTROLYTE CO2 27 24 - 32 10/05 [facility]2018 [facility] ELECTROLYTE Calcium Lvl 8.6 8.5 - 10.5 10/05 [facility]2018 [facility] ELECTROLYTE eGFR 50 10/05 [facility] Comment: The Medical eGFR is Center calculated using the CKD-EPI formula. In most young, healthy individuals the eGFR will be >90 mL/min/1.73m2 . The eGFR declines with age. An eGFR of 60-89 may be normal in some populations, particularly the elderly, for whom the CKD-EPI formula has not been extensively validated. Use of the eGFR is not recommended in the following populations:< br/>
Janine viduals with unstable creatinine concentration s, including patients and those with serious co-morbid conditions.<b r/>
Patie nts with extremes in muscle mass or diet.

The data above are obtained from the National Kidney Disease Education Program (NKDEP) which additionally recommends that when the eGFR is used in patients with extremes of body mass index for purposes of drug dosing, the eGFR should be multiplied by the estimated BMI. HEMATOLOGY WBC 5.7 3.7 - 10.4 10/05 [facility] HEMATOLOGY RBC 4.06 4.70 - 10/05 [place] 6.10 [facility] HEMATOLOGY Hgb 13.2 14.0 - 10/05 [place] 18.0 [facility] HEMATOLOGY Hct 37.9 42.0 - 10/05 [place] 54.0 [facility] HEMATOLOGY MCV 93.4 80.0 - 10/05 [facility] 94.0 [facility] HEMATOLOGY MCH 32.5 27.0 - 10/05 [place] 31.0 [facility] HEMATOLOGY MCHC 34.8 32.0 - 10/05 [place] 36.0 [facility] HEMATOLOGY RDW 13.3 11.5 - 10/05 [place] 14.5 [facility] HEMATOLOGY Platelet 216 133 - 450 10/05 2018 [facility] HEMATOLOGY MPV 8.9 7.4 - 10.4 10/05 2018 [facility] HEMATOLOGY Segs 83.8 45.0 - 10/05 [facility] 75.0 [facility] HEMATOLOGY Lymphocytes 12.4 20.0 - 10/05 [place] 40.0 [facility] HEMATOLOGY Monocytes 3.8 2.0 - 12.0 10/05 2018 [facility] HEMATOLOGY Neutrophils # 4.8 1.5 - 8.1 10/05 [facility] HEMATOLOGY Lymphocytes # 0.7 1.0 - 5.5 10/05 [facility] HEMATOLOGY Monocytes # 0.2 0.0 - 0.8 10/05 [facility] CHEM PANEL Magnesium Lvl 2.8 1.8 - 2.4 10/04 [facility] CHEM PANEL Phosphorus 3.9 2.5 - 4.5 10/[address] ELECTROLYTE AGAP 9.3 10.0 - 10/04 [facility] S 20.0 [facility] ELECTROLYTE Glucose Lvl 108 70 - 99 10/04 [facility] ELECTROLYTE BUN 50 7 - 22 10/04 [facility] ELECTROLYTE Creatinine 1.58 0.50 - 10/04 [facility] S Lvl 1.40 [facility] ELECTROLYTE Sodium Lvl 142 135 - 145 10/04 [facility] ELECTROLYTE Potassium Lvl 4.3 3.5 - 5.1 10/04 [place] [facility] ELECTROLYTE Chloride Lvl 111 95 - 109 10/04 [facility] ELECTROLYTE CO2 26 24 - 32 10/04 [facility] 2018 [facility] ELECTROLYTE Calcium Lvl 9.0 8.5 - 10.5 10/04 [facility] ELECTROLYTE eGFR 44 10/04 Result [facility] Comment: The Medical eGFR is Center calculated using the CKD-EPI formula. In most young, healthy individuals the eGFR will be >90 mL/min/1.73m2 . The eGFR declines with age. An eGFR of 60-89 may be normal in some populations, particularly the elderly, for whom the CKD-EPI formula has not been extensively validated. Use of the eGFR is not recommended in the following populations:< br/>
Janine viduals with unstable creatinine concentration s, including patients and those with serious co-morbid conditions.<b r/>
Patie nts with extremes in muscle mass or diet.

The data above are obtained from the National Kidney Disease Education Program (NKDEP) which additionally recommends that when the eGFR is used in patients with extremes of body mass index for purposes of drug dosing, the eGFR should be multiplied by the estimated BMI. HEMATOLOGY Segs 88.2 45.0 - 10/04 [facility] 75.0 [facility] HEMATOLOGY Lymphocytes 7.2 20.0 - 10/04 [facility] 40.0 [facility] HEMATOLOGY Monocytes 4.5 2.0 - 12.0 10/04 [facility]2018 [facility] HEMATOLOGY Basophils 0.1 0.0 - 1.0 10/04 [facility]2018 [facility] HEMATOLOGY Neutrophils # 11.4 1.5 - 8.1 10/04 [facility] HEMATOLOGY Lymphocytes # 0.9 1.0 - 5.5 10/04 [facility] HEMATOLOGY Monocytes # 0.6 0.0 - 0.8 10[place]04 [place] [facility] HEMATOLOGY WBC 12.9 3.7 - 10.4 10/04 [facility] HEMATOLOGY RBC 4.22 4.70 - 10/04 [place] 6.10 [facility] HEMATOLOGY Hgb 13.3 14.0 - 10/04 [place] 18.0 [facility] HEMATOLOGY Hct 39.4 42.0 - 10/04 [place] 54.0 [facility] HEMATOLOGY MCV 93.4 80.0 - 10/04 [place] 94.0 [facility] HEMATOLOGY MCH 31.5 27.0 - 10/04 [place] 31.0 [facility] HEMATOLOGY MCHC 33.7 32.0 - 10/04 [place] 36.0 [facility] HEMATOLOGY RDW 13.4 11.5 - 10/04 [place] 14.5 [facility] HEMATOLOGY Platelet 226 133 - 450 10/04 [facility] HEMATOLOGY MPV 8.7 7.4 - 10.4 10/04 [facility] BODY FLUIDS Tube Num CSF 4 10/03 [place] [facility] BODY FLUIDS Color CSF Colorless Colorless 10/03 [place] (10/03/18 5:46 PM) /2018 [facility] Center BODY FLUIDS Clarity CSF Clear Clear 10/03 [place] (10/03/18 5:46 PM) Medica l [place] BODY FLUIDS Supernat CSF Colorless Colorless 10/03 [facility] (10/03/18 5:46 PM) Medica l Center BODY FLUIDS Nucleated 0 0 - 53 10/03 [facility] Cells Medical [place] BODY FLUIDS RBC CSF 304 0 - 03 10/03 [facility] BODY FLUIDS Glucose CSF 75 45 - 80 10/03 [facility] BODY FLUIDS Protein CSF 56 15 - 45 10/03 [facility] BODY FLUIDS Tube Num CSF 1 10/03 [place] [facility] BODY FLUIDS Color CSF Colorless Colorless 10/03 [place] (10/03/18 5:46 PM) Medica l Center BODY FLUIDS Clarity CSF Clear Clear 10/03 [place] (10/03/18 5:46 PM) Medica l Center BODY FLUIDS Supernat CSF Colorless Colorless 10/03 [place] (10/03/18 5:46 PM) Medica l Center BODY FLUIDS Nucleated 2 0 - 53 10/03 [facility] Cells CSF /2018 [facility] BODY FLUIDS RBC CSF 436 0 - 03 10/03 [place] [facility] IMMUNOLOGY VDRL Scr CSF Non Reactive Non 10/03 [facility] (10/03/18 5:46 PM) Reactive [facility] IMMUNOLOGY Alb (CPE) 3700.0 3400.0 - 10/03 [place] 5000.0 [facility] IMMUNOLOGY IgG Lvl CSF 4.3 2.0 - 4.0 10/03 [place] /2018 [facility] IMMUNOLOGY IgG (CPE) 1290 694 - 1618 10/03 [facility] IMMUNOLOGY IgG Index 0.4 0.3 - 0.7 10/03 [facility] IMMUNOLOGY Alb CSF (CPE) 34.7 14.0 - 10/03 [facility] s 25.0 [facility] IMMUNOLOGY Description The gel 10/03 [facility] CSF demonstrat [facility] appropriat e resolution of the main protein bands. The gamma region shows continuous distributi on of proteins both in the CSF and in the serum. No oligoclona l bands are detected. IMMUNOLOGY PE Interp CSF CSF 10/03 [place] protein [facility] [place] resis did not reveal evidence of an oligoclona l process in the [employer] DRIER. The CSF IgG index is within the reference range indicating that there is no elevation in intracereb ral IgG synthesis. The CSF/serum albumin ratio is mildly elevated that in the presence of RBCs (436/mm3) is indicative of blood admixture to the CSF specimen. Clinical correlatio n is suggested. The electronic medical record has been reviewed for relevant history. I have personally reviewed the test results and concur with the resident's interpreta tion. CPT: 79651-UX MOLECULAR Source HSV Cerebral 10/03 Result [facility] DIAGNOSTIC Comment: This Medical Fluid sample was Center NON DETECTED or BELOW THE LOWER LIMITS OF DETECTION<br/ >for HSV 1/2 DNA by real-time PCR using hybridization probe and
melti ng curve analysis. MOLECULAR HSV 1 by PCR Negative Negative 10/03 [facility] s DIAGNOSTIC (10/03/18 5:46 PM) [facility] MOLECULAR HSV 2 by PCR Negative Negative 10/03 [facility] DIAGNOSTIC (10/03/18 5:46 PM) /2018 [facility] MOLECULAR Source VZV Cerebral 10/03 [facility] DIAGNOSTIC [facility] Fluid [place] MOLECULAR VZV PCR Negative Negative 10/03 [facility] DIAGNOSTIC (10/03/18 5:46 PM) [facility] MOLECULAR Source CMV Cerebral 10/03 [facility] DIAGNOSTIC Spinal [facility] Fluid [place] MOLECULAR CMV PCR Negative Negative 10/03 [facility] DIAGNOSTIC (10/03/18 5:46 PM) [facility] VIRAL - Enterovirus Negative Negative 10/03 [facility] SEROLOGY PCR CSF (10/03/18 5:46 PM) [facility] HEMATOLOGY Basophils 0.1 0.0 - 1.0 10/03 [facility] AMINO ACID MMA Qnt 244 0 - 378 10/02 [facility] AMINO ACID Disclaimer Comment 10/02 Result [facility] (Org Acid) Comment: Medical
This Center test was developed and its performance characteristi cs
determ ined by [facility]. It has not been cleared or
approv ed by the Food and Drug Administratio n.
Perfor med At: [facility]
[address] [place], [place] [id number]< br/>Devan Iqbal MD Ph:[phone] BACTERIAL - MRSA by PCR Negative 10/02 [place] SEROLOGY (10/02/18 5:29 PM) [facility] IMMUNOLOGY Treponemal Ab Non-Reactive Non 10/02 [facility] *NA* /2018 Medical (10/02/18 5:29 PM) [place] VIRAL - W Nile Ab IgG Negative Negative 10/02 Result [facility] SEROLOGY Comment: No Medical detectable [place] West Nile Virus IgG Antibody. If a recent
in fection is suspected, another specimen should be
submit fabian for testing within 7-14 days. VIRAL - W Nile Ab IgM Negative Negative 10/02 Result [facility] SEROLOGY Comment: No Medical detectable [place] West Nile Virus IgM Antibody. If a recent
in fection is suspected, another specimen should be
submit fabian for testing within 7-14 days.
Per formed At: [facility]
[address] [place], [place] [id number]<br/ >Devan Iqbal MD Ph:[phone] ANEMIA Vitamin B12 394 254 - 1320 10/02 [facility] STUDY [facility] CHEM PANEL Lactic Acid 1.3 0.5 - 2.2 10/02 [facility] s [facility] CHEM PANEL Alpha-Tocophe 9.4 9.0 - 29.0 10/02 Result [place] ne[place] Comment: This Medical test was Center developed and its performance characteristi cs
determ ined by [facility]. It has not been cleared or
approv ed by the Food and Drug Administratio n. CHEM PANEL Gamma-Tocophe 1.4 0.5 - 4.9 10/02 [place] Comment: This Medical test was Center developed and its performance characteristi cs
determ ined by [facility]. It has not been cleared or
approv ed by the Food and Drug Administratio n.
Refere nce intervals for alpha and gamma-tocophe rol
deter mined from National Health and Nutrition Examination<b r/>Survey, [id number]. Individuals with alpha-tocophe rol levels
le ss than 5.0 mg/L are considered vitamin E deficient.
Performed At: [facility] [place], [place] [id number]<br/ >Devan Iqbal MD Ph:[phone] HEMATOLOGY INR 1.06 0.85 - 10/02 [facility] 1.17 [facility] HEMATOLOGY PT 13.6 12.0 - 10/02 [facility] 14.7 [facility] HEMATOLOGY PTT 31.6 22.9 - 10/02 [facility] 35.8 [facility] HEMATOLOGY Sed Rate 7 0 - 15 10/02 [facility] HEMATOLOGY Eosinophils 0.2 0.0 - 4.0 10/02 [facility] s [facility] IMMUNOLOGY Albumin % 56.3 55.8 - 10/02 [facility] 66.1 [facility] IMMUNOLOGY Alpha 1 % 4.3 2.8 - 4.9 10/02 [facility] IMMUNOLOGY Alpha 2 % 8.1 7.0 - 11.9 10/02 [facility] IMMUNOLOGY Beta % 12.7 7.8 - 13.7 10/02 [facility] IMMUNOLOGY Gamma % 18.6 11.1 - 10/02 [place] 18.7 /2018 [facility] IMMUNOLOGY Albumin (SPE) 4.11 3.57 - 10/02 [place] 5.55 /2018 [facility] IMMUNOLOGY Alpha 1 Glob 0.31 0.18 - 10/02 [place] 0.41 /2018 [facility] IMMUNOLOGY Alpha 2 Glob 0.59 0.45 - 10/02 [place] 1.00 /2018 [facility] IMMUNOLOGY Beta Glob 0.93 0.50 - 10/02 [place] 1.15 /2018 [facility] IMMUNOLOGY Gamma Glob 1.36 0.71 - 10/02 [place] 1.57 /2018 [facility] IMMUNOLOGY Tot Prot 7.3 6.4 - 8.4 10/02 [place] (SPE) [facility] IMMUNOLOGY SPE Interp Capillary 10/02 [place] electropho /2018 Medical resis does Center not demonstrat e any feature consistent with the presence of a monoclonal gammopathy . Total protein level is within the reference range. Serum protein electropho resis shows normal distributi on of the main protein fractions. Serum protein electropho resis shows no pathologic changes. The electronic medical record has been reviewed for relevant history. I have personally reviewed the test results and concur with the resident's interpreta tion. CPT 50149-FX IMMUNOLOGY CERULOPLASMIN 23 20 - 60 10/02 [place] [facility] IMMUNOLOGY FANNY Positive Negative 10/02 [place] *ABN* [facility] (10/02/18 5:46 AM) [place] IMMUNOLOGY C-REACTIVE 4.2 <=2.9 mg/L 10/02 [place] [facility] IMMUNOLOGY C-ANCA Negative Negative 10/02 [facility] (10/02/18 5:46 AM) [facility] IMMUNOLOGY P-ANCA Negative Negative 10/02 [facility] (10/02/18 5:46 AM) [facility] [place] IMMUNOLOGY HIV Ag/Ab 4th Negative Negative [place]/02 [place] *NA* [facility] (10/02/18 5:46 AM) [place] IMMUNOLOGY NMO IgG Ab <1.5 0.0 - 3.0 10/02 Result Comment: Medical Center Negative: 0.0 - 3.0
Positive: >3.0
Perf ormed At: [facility]
[address] [place], [place] [id number]<br/ >Devan Iqbal MD Ph:[phone] IMMUNOLOGY FANNY Titer 1:320 Negative 10/02 [facility] *ABN* [facility] (10/02/18 5:46 AM) [place] IMMUNOLOGY FANNY Interp Pattern 10/[address] [facility] Center s METAL Copper Lvl 90 72 - 166 10/02 Result Comment: This Medical test was Center developed and its performance characteristi cs
determ ined by [facility]. It has not been cleared or
approv ed by the Food and Drug Administratio n.
Detection Limit = 5
Perform ed At: [facility]
[address] [place], [place] [id number]<br/ >Devan Iqbal MD Ph:[phone] URINE AND UA Color Yellow Yellow 10/02 [facility] STOOL *NA* [facility] (10/01/18 9:44 PM) [place] URINE AND UA Turbidity Slight Cloudy Clear 10/02 [facility] (10/01/18 9:44 PM) [facility] [place] URINE AND UA Spec Grav 1.020 <=1.030 10/02 [facility] STOOL /2018 [facility] URINE AND UA pH 6.0 5.0 - 8.0 10/02 [facility] STOOL /2018 [facility] URINE AND UA Protein Negative Negative 10/02 [facility] (10/01/18 9:44 PM) [facility] URINE AND UA Glucose 250 mg/dL Negative 10/02 [facility] STOOL mg/dL [facility] URINE AND UA Ketones Negative Negative 10/02 [facility] STOOL *NA* [facility] (10/01/18 9:44 PM) [place] URINE AND UA Bili Negative Negative 10/02 [facility] STOOL *NA* [facility] (10/01/18 9:44 PM) [place] URINE AND UA Blood Small Negative 10/02 [facility] STOOL *ABN* [facility] (10/01/18 9:44 PM) [place] URINE AND UA 0.2 0.1 - 1.0 10/02 [facility] Urobilinogen /2018 [facility] URINE AND UA Nitrite Negative Negative 10/02 [facility] (10/01/18 9:44 PM) [facility] URINE AND UA Leuk Est Negative Negative 10/02 [facility] STOOL (10/01/18 9:44 PM) [facility] URINE AND UA Sq Epi None Seen Few 10/02 [facility] (10/01/18 9:44 PM) [facility] URINE AND UA WBC None Seen None Seen 10/02 [facility] (10/01/18 9:44 PM) [facility] URINE AND UA RBC 0-2 /HPF 0 - 2 10/02 [facility] STOOL /2018 [facility] URINE AND UA Uric Ac Many /HPF None Seen 10/02 [place] ST[place] /HPF /2018 [facility] HEMATOLOGY INR 1.03 0.85 - 10/02 [facility] 1.17 [facility] HEMATOLOGY PT 13.3 12.0 - 10/02 [facility] 14.7 [facility] HEMATOLOGY PTT 35.6 22.9 - 10/02 [facility] 35.8 [facility] Pathology Reports No Data Provided for This Section Diagnostic Reports Report Value Date Source Spine Thoracic w/wo 04/17/2019 [facility] alexys contrast MRI EXAMINATION: MRI thoracic spine with and without contrast EXAMINATION: MRI lumbar spine with and without c ontrast DATE: 04/17/2019 INDICATION: Transverse myelitis. FINDINGS: Over the interval, T2 signal changes in the distal cord and conus have resolved. Axial images fail demonstrate the previously described areas of central cord hyperintensity. There may be some very quest ionable volume loss in the right hemicord at the level the conus. The remainder of the cord is normal in appearance. Thoracic spondylitic changes are again noted with multiple small disc protrusions resulting in mild indentation on the anterior thecal sac contour and minimal flattening of the co rd contour at multiple levels. No significant progression of these findings is noted over the interval. Postcontrast images fail dem onstrate any abnormal parenchymal or leptomeningeal enhancement. Lumbar spine is unchanged: Loss of disc height, endplat e sclerosis, and diffuse bulging are present at L1- L2 with moderate stenosis of the neural foramina but no significant stenosis of the canal. At L2-L3, there is diffuse bulgi ng of the disc with mild can al narrowing and moderate bilateral foraminal narrowing. At L3-L4, there is diffuse bulging of the disc and marked posterior element and ligamentum flavum hypertrophy with se ebony central canal stenosis and moderate severe bilateral foraminal narrowing. At L4-L5, there is advanced posteriorly degenerative change and disc desiccation with moderate severe bilateral foraminal n arrowing. The central canal is widely patent. At L5-S1, there is bilateral spondylolysis with grade 1 anterolisthesis, suitable bulging the disc, and severe bilateral foraminal compromise. IMPRESSION: Interval resolution of previ ously described changes in the distal cord and conus. No new or recurrent lesions of the spinal cord. Stable degenerative findings: Persistent severe stenosis o f the spinal canal at L3-L4 with centralization and tethering of the nerve roots. Severe neural foraminal comp romise at the lumbosacral junction due to anterolisthesis. Multiple other levels of sig nificant neural foraminal narrowing the lumbar spine due to posterior element disease and disc bulging. Thoracic disc disease with mild canal stenosis a t multiple levels. Spine lumbar w/wo contrast 04/17/2019 OP ID [place] MRI EXAMINATION: MRI thoracic spine with and without contrast EXAMINATION: MRI lumbar spine with and without c ontrast DATE: 04/17/2019 INDICATION: Transverse myelitis. FINDINGS: Over the interval, T2 signal changes in the distal cord and conus have resolved. Axial images fail demonstrate the previously described areas of central cord hyperintensity. There may be some very quest ionable volume loss in the right hemicord at the level the conus. The remainder of the cord is normal in appearance. Thoracic spondylitic changes are again noted with multiple small disc protrusions resulting in mild indentation on the anterior thecal sac contour and minimal flattening of the co rd contour at multiple levels. No significant progression of these findings is noted over the interval. Postcontrast images fail dem onstrate any abnormal parenchymal or leptomeningeal enhancement. Lumbar spine is unchanged: Loss of disc height, endplat e sclerosis, and diffuse bulging are present at L1- L2 with moderate stenosis of the neural foramina but no significant stenosis of the canal. At L2-L3, there is diffuse bulgi ng of the disc with mild can al narrowing and moderate bilateral foraminal narrowing. At L3-L4, there is diffuse bulging of the disc and marked posterior element and ligamentum flavum hypertrophy with se ebony central canal stenosis and moderate severe bilateral foraminal narrowing. At L4-L5, there is advanced posteriorly degenerative change and disc desiccation with moderate severe bilateral foraminal n arrowing. The central canal is widely patent. At L5-S1, there is bilateral spondylolysis with grade 1 anterolisthesis, suitable bulging the disc, and severe bilateral foraminal compromise. IMPRESSION: Interval resolution of previ ously described changes in the distal cord and conus. No new or recurrent lesions of the spinal cord. Stable degenerative findings: Persistent severe stenosis o f the spinal canal at L3-L4 with centralization and tethering of the nerve roots. Severe neural foraminal comp romise at the lumbosacral junction due to anterolisthesis. Multiple other levels of sig nificant neural foraminal narrowing the lumbar spine due to posterior element disease and disc bulging. Thoracic disc disease with mild canal stenosis a t multiple levels. Foot series DX EXAM: XR RIGHT FOOT 3 VIEWS 03/12/2019 [facility] DATE: 03/12/2019 10:19 [facility] INDICATION: R foot wound COMPARISON: None available TECHNIQUE: AP, lateral and oblique radiographs o f the foot FINDINGS: No acute fracture or malalignment is identified. There is no periosteal reaction, focal erosion or cortical destruction to indicate the presence of acute osteomyelitis. Soft tissue swelling is pres ent at the lateral and dorsal aspect of the forefoot, most evident in the region of the fifth toe, without radiopaque foreign body or subcutaneous emphysema. IMPRESSION: No radiographic evidence of acute osteomyelitis. MRI is more sensitive in this diagnosis if indicated. Chest 1view DX EXAM: XR CHEST 1 VIEW 10/23/2018 [facility] edical DATE: 10/23/2018 10:12 AM T [facility] INDICATION: - SOB COMPARISON: October 19, 2018 TECHNIQUE: AP chest IMPRESSION: 1. Scattered rounded opacit ies overlying both lungs that may represent pleural calcified plaques are stable compared to previous study. 2. Mild bibasilar subsegmen kiesha platelike atelectatic changes are noted. Otherwise, lungs are clear. 3. No significant pleural effusions. 4. Cardiomediastinal silhouette is normal for t echnique. 5. Osseous structures are stable. Retroperitoneal complete w EXAM: US RENAL WITH DOPPLER 9 [facility] Doppler US DATE: 10/19/2018 10:30 CDT Center INDICATION: Acute kidney injury ADDITIONAL INFORMATION: None. COMPARISON: CT abdomen pelvis 10/12/2018 TECHNIQUE: Multiplanar delia lucy, color Doppler and spectral Doppler ultrasound of the kidneys and urinary bladder. FINDINGS: Right kidney: Size: 11.1 x 6.1 x 6.1 cm. Cortical thickness: Normal. Hydronephrosis: None. Echogenicity: Mildly increased. Calculi: None identified. Cysts/Masses: None. Left kidney: Size: 10.4 x 6.3 by a 5.5 cm. Cortical thickness: Normal. Hydronephrosis: None. Echogenicity: Mildly increased. Calculi: None identified. Cysts/Masses: None. Bladder: The bladder is poorly visualized. Right Main Renal Artery: Patent. No elevated vladislav ocities. Right RA:Aorta Ratio: Normal. Right Intrarenal/Arcuate Arteries: Patent. No pa rvus et tardus. Right Superior RI: 0.70 Right Middle RI: 0.68 Right Inferior RI: 0.67 Left Main Renal Artery: Patent. No elevated [place] cities. Left RA:Aorta Ratio: Normal. Left Intrarenal/Arcuate Arteries: Patent. No par vus et tardus. Left Superior RI: 0.64 Left Middle RI: 0.65 Left Inferior RI: 0.71 Main Renal Veins: Patent. Free fluid: None. Other: None. IMPRESSION: 1. No renal Doppler/flow abnormalities. 2. No hydronephrosis. 3. Mildly increased echogen icity of both kidneys suggestive of medical renal disease. Chest 1view DX EXAM: XR CHEST 1 VIEW 10/19/2018 [facility] edical DATE: 10/19/2018 0932 hours Center INDICATION: - SOB COMPARISON: Previous chest x-ray from 10/09/[address] chest from 10/12/2018 TECHNIQUE: AP chest. FINDINGS: Lines, tubes and hardware: None. Lungs and pleura: Stable sca ttered calcified plaques. No pleural effusion, focal airspace consolidation or pneumothorax within the semierect exam. Mild low lung volume with bibasilar atelectasis. Heart and mediastinum: The h eart size is normal for technique. The mediastinal contours are normal. Bones, soft tissues: No acute abnormality. IMPRESSION: 1. Mild low lung volume without acute cardiopul monary abnormality. 2. 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 Abdomen/Pelvis w IV EXAM: CT ABDOMEN AND PELVIS WITH CONTRAST [facility] contrast CT DATE: 10/12/2018 9:44 CDT Center INDICATION: - Rule out malignancy ADDITIONAL INFORMATION: None. COMPARISON: CT chest with contrast 10/04/2018 TECHNIQUE: Volumetric CT acq uisition of the abdomen and pelvis after the intravenous administration contrast. Axial, coronal and sagittal reconstructions. Postcontrast phases: Venous and delayed. IV contrast: 100 mL Omnipaque Enteric contrast: None. DLP: 2248 mGy-cm FINDINGS: Lines, tubes and hardware: None. Lower thorax: * Bibasilar subsegmental atelectasis. * No pleural effusions. * Multiple pleural-based ca lcifications are identified in bilateral lung bases. * Please refer to same day chest CT for intrath oracic findings. Liver: * No hepatomegaly. * 5 mm hypodensity in hepatic segment 5 (series 7 image 27). * Additional tiny hypodensi ty in hepatic segment 5 (series 11 image 25), too small to characterize. Biliary tree: No intra- or extrahepatic biliary ductal dilation. Gallbladder: Normal. No CT evidence of gallstone s. Pancreas: No mass or ductal dilation. Spleen: No splenomegaly. Adrenals: No nodularity or irregularity. Kidneys and ureters: * No hydronephrosis or hydroureter. * Small nonobstructing bila teral renal calculi measuring up to 6.6 mm (series 2 image 37). * Punctate calculi in the interpolar region of the left kidney. * 6 mm hypodensity in the i nterpolar region of left kidney (series 12 image 32). * Bilateral kidneys show normal and equal nephr ogram. Bladder: * Diffuse circumferential bladder wall thicken ing. * No focal lesion. Reproductive organs: * Calcification within the prostate. * Seminal vesicles are unremarkable. Gastrointestinal tract: Stomach: Normal. Small bowel: Normal in caliber without evidence of obstruction or ileus. Colon: No abnormal wall thickening or masslike s tructures identified. Appendix: Normal. Peritoneum, mesentery and re troperitoneum: No free air, ascites or loculated fluid. Lymph nodes: No surgically e nlarged abdominal or pelvic lymph nodes identified. Vasculature: * Moderate atherosclerotic calcification of aor ta and its branches. * The portal, superior mesenteric and splenic v eins are patent. * No evidence of aortic aneurysm or dissection . Bones: * No acute abnormality. * Moderate degenerative justina nges of lower thoracic and lumbar spine with anterolisthesis of L5 over S1. Soft tissues: Small fat-containing umbilical her katelyn. IMPRESSION: 1. No evidence of intra-abdominal or pelvic mas s. 2. No abdominal or pelvic lymphadenopathy. 3. Small nonobstructing bilateral renal calculi and a small left renal cyst. 4. Small hypodensity in hep atic segment 5, likely cyst. Additional tiny hypodensity in hepatic segment 5 post a small to characterize. 5. Please refer to same day chest CT for intrat horacic findings. RECOMMENDATIONS: None. Chest w contrast CT EXAM: CT CHEST WITH CONTRAST 10/12/2018 [facility] [place] [facility] DATE: 10/12/2018 9:44 CDT Center INDICATION: - Rule out malignancy COMPARISON: Chest x-ray from 10/09/2018 TECHNIQUE: Volumetric CT of the chest is acquired following intravenous administration of contrast. Axial, coronal and sagittal images are provided. Axial MIPS were obtained at the acquisition workstation and provided for interpretation. IV Contrast: 100 mL of Omnipaque.. DLP (mGy-cm): 2248 FINDINGS: Lines, tubes and hardware: None. Lower neck: The visible por tions or the lower neck and thyroid are unremarkable. Axilla: Clear. Airway: Patent. Lungs and pleura: Bilateral symmetric calcified pleural plaques are identified involving the upper lateral hemithorax as well as the dependent hemithorax and bilateral hemidiaphragms. There is sparing of the costophrenic recesses . No pneumothorax or pleural effusions are seen. Small right lower lobe nodules on images 83 and 85 of series 17 measuring up to 3 mm. Small calcified granuloma in the right upper lobe on image 69. Mild bilateral dependent subpleural atelectasis. Mediastinum, luis daniel and intrat horacic lymph nodes: No enlarged mediastinal or hilar lymph nodes. Heart, pericardium and great vessels: The heart is normal in size. No pericardial effusions. Dense three-vessel coronary calcifications are noted. Upper abdomen: Please refer to report from concurrently performed CT abdomen pelvis were abdominal findings. Bones: Multilevel disc degen erative changes in the thoracic spine. Please refer to CT spine 10/02/2017 for further evaluation of findings in this area. Soft tissues: Normal. IMPRESSION: 1. Small right lower lobe n odules measuring up to 3 mm may represent infectious/inflammatory etiology or sequela of prior infection. If there is concern for malignancy, CT follow-up in 3 months recomme nded. If the patient does no t have history of prior malignancy, optional CT follow-up in 12 months may be performed, according to Fleischner guidelines. 2. Bilateral symmetric calc ified pleural plaques likely represent sequela of prior infectious/inflammatory process and/or asbestos related pleural plaques. 3. Please refer to report f rom concurrently performed CT abdomen pelvis for abdominal findings. Brain w/wo contrast MRI EXAM: MRI BRAIN WITH AND WITHOUT CONTRAS T 10/11/2018 [facility] [place] [facility] DATE: 10/14/2018 0120 hours Cent er INDICATION: 68 year old mal e with hypertension and subarachnoid hemorrhage presents with rapidly progressive right lower extremity weakness, urinary incontinence. Possible transverse myelitis. COMPARISON: 03/31/2003 CT TECHNIQUE: Multiplanar, mult isequence MRI of the brain with and without intravenous contrast. IV contrast: 18 mL's of MultiHance. FINDINGS: Local magnetic field distort ion secondary to the anterior communicating artery aneurysm clip is present. Diffusion-weighted images fail to demonstrate an y recent ischemic change. Bilateral cerebral hemispher e contain sulcal and parenchymal magnetic susceptibility artifacts consistent with prior hemorrhage. No intracranial mass is pres ent. There is mild chronic microvascular ischemic change in the deep white matter. The basal cisterns and the sulci are unremarkable. The ventricular sizes are normal without signs of hydrocephalus. The midline structures are unremarkable within the limits of the technique. An area of encephalomalacia is identified tracking through the medial aspect of the inferior frontal lobe. Post-contrast images reveal no abnormal parenchymal or leptomeningeal enhancement. The vascular structures enhance uneventfully. The bone marrow signal is un remarkable. There is trace opacification of bilateral mastoid air cells. The paranasal sinuses are unremarkable. The orbits are unremarkable. Right middle turbinate stuart bullosa. IMPRESSION: 1. No acute intracranial ab normality or pathological intracranial enhancement. 2. Mild chronic microvascul ar changes and encephalomalacia in the right frontal lobe. Spine lumbar puncture w EXAM: LUMBAR PUNCTURE, FLUOROSCOPIC GUID ANCE 10/11/2018 [facility] fluoro DX DATE: 10/11/2018 16:06 CDT Center INDICATION: Paresthesias, consultation for fluor oscopy guided lumbar puncture COMPARISON: Magnetic resonan ce imaging of the lumbar spine with and without contrast 10/09/2018. TECHNIQUE AND FINDINGS: Informed consent was obtaine d from the patient, and time out procedure was performed. The lower back was prepped a nd draped in sterile fashion with the patient in prone position. Under fluoroscopic guidance a 22 gauge needle was advanced into the thecal sac at the L3-L4 interspace. The opening pressure was unable to be measured. No cerebrospinal fluid was aspirated at this level after repositioning the needle multiple times. Subsequently, a new skin ent ry site was chosen. Under fluoroscopic guidance a 20-gauge needle was advanced into the thecal sac at the L2-L3 level. Approximately 7 mL of blood-tinged cerebrospinal fluid was aspirated. The patient tolerated the procedu re well. FLUOROSCOPY TIME: 1.8 minutes SKIN DOSE: 42.5 mGy Rogelio Hernández MD was present for the procedure. IMPRESSION: Fluoroscopically guided lumbar punct ure. Chest 1view DX EXAM: XR CHEST 1 VIEW 10/09/2018 [facility] DATE: 10/09/2018 11:07 CDT Center INDICATION: - preop COMPARISON: 04/02/2003 TECHNIQUE: AP chest FINDINGS: Lines, tubes and hardware: None. Lungs and pleura: Few scatte red subsegmental platelike atelectatic changes are again seen in both lungs. Again seen is left pleural calcified plaques without significant interval changes. No new lung lesions. No significant pleural effusions. Heart and mediastinum: normal for technique. Aor tic atherosclerotic disease. Bones: No acute bony abnormality is identified. IMPRESSION: 1. No acute cardiopulmonary abnormality. 2. Calcified pleural plaques seen mainly on the left side which may represent sequela to remote infectious or inflammatory changes. However, correlation with patient's history of asbestos exposure is recommended. Spine lumbar w/wo contrast EXAM: MRI LUMBAR SPINE WITHOUT AN D WITH CONTRAST 10/09/2018 [facility] MRI DATE: 10/09/2018 Center 1. INDICATION: 68-year-old male suspicion for transverse myelitis. '- extend to T-10 eval worsening compression vs transverse myelitis'Reportedly, the prior lumbar puncture was unremarkable. The patien t reportedly has decreased p ain and improved mobility following treatment with steroids. Admission for urinary incontinence. COMPARISON: Magnetic resonan ce imaging thoracic and lumbar spine from 10/02/2018. CT thoracic and lumbar spine from 10/02/2018. TECHNIQUE: Multiplanar MR im aging of the lumbar spine, with and without contrast. IV contrast: 18 mL of MultiHance. FINDINGS: T2-FLAIR hyperintensity and contrast enhancement in the conus medullaris, at level of T12. There is also diffuse leptomeningeal and cauda equina enhancement. There is no significant change since 10/02/2018 There are 5 nonrib-bearing l umbar type vertebra. The lowermost fully formed disc is labeled L5-S1. The lumbar lordosis is obser jeffrey. Bilateral chronic L5 spondylolysis with resulting 5 mm anterolisthesis of L5 on S1. Disc desiccation, vacuum phe nomenon and disc height loss throughout the lumbar spine most pronounced at T12-L1, L1-L2, L2-L3 and L5-S1. Degenerative endplate changes are seen at all le vels. The spinal cord terminates at L1-L2. Baseline short pedicles result in diffuse narrow ing of the T12-L1: no spinal canal stenosis or neural laura inal narrowing. L1-L2: Endplate osteophytes, disc bulge with superimposed lateral right disc extrusion with 8 mm inferior migration, facet and ligamenta flava hypertrophy contribute to mild spinal canal stenosis and mild bilateral neural foraminal narrowing. L2-L3: Endplate osteophytes, disc bulge, facet and ligamenta flava hypertrophy contribute to mild spinal canal stenosis and mild bilateral neural foraminal narrowing. L3-L4: Disc bulge, and marke d bilateral facet and ligamenta flava hypertrophy result in moderate severe spinal canal stenosis with crowding of the cauda equina at this level. L4-L5: Disc bulge, facet and ligamenta flava hypertrophy result in mild spinal canal stenosis and mild bilateral neural foraminal narrowing. L5-S1: Anterolisthesis secon serene to bilateral spondylolysis, associated uncovered disc facet hypertrophy result in severe neural foraminal narrowing with exiting bilateral L5 nerve root impingement. The partially visualized kid sj demonstrates a T1 hypointense and T2 hyperintense cortical cystic-like lesion measuring 1.0 cm. IMPRESSION: 1. Abnormal T2 intensity a nd contrast enhancement of the conus medullaris, predominantly involving the right hemicord more than the left, at the T12 level. T2 hyperintense signal is similar in distrib ution. Enhancement may be so mewhat more conspicuous which may be due to evolution. Enhancement of the equina nerve roots.Postcontrast imaging of the lumbar spine was not obtained on the prior exam. Find ings may represent an inflam matory etiology. The presence of a normal Lumbar puncture would speak against infectious/neoplastic etiologies. 2. Moderate to severe spina l canal stenosis at L3-L4 with resulting crowding of the cauda equina. This finding is similar to prior study from October 02. 3. Chronic spondylolysis at L5 and associated anterolisthesis severely narrow the L5-S1 neural foramina with nerve root impingement bilaterally. Ext Lower Venous Doppler EXAM: US BILATERAL LOWER EXTREMITY VENOUS DOPPLER 10/09/2018 [facility] Bilat US DATE: 10/09/2018 0:38 CDT Center INDICATION: - swelling of RLE ADDITIONAL INFORMATION: None. COMPARISON: None. TECHNIQUE: Multiplanar delia lucy, color Doppler and spectral Doppler ultrasound of the bilateral lower extremity veins. FINDINGS: Right Thigh Veins: Common Femoral: Patent. Femoral (SFV): Patent. Popliteal: Patent. Proximal Greater Saphenous: Patent. Deep Femoral Veins: Patent. Left Thigh Veins: Common Femoral: Patent. Femoral (SFV): Patent. Popliteal: Patent. Proximal Greater Saphenous: Patent. Deep Femoral Veins: Patent. Other: None. IMPRESSION: 1. No deep venous thrombosis (DVT) in bilateral thigh veins. Spine lumbar puncture w EXAM: Fluoroscopy-guided lumbar puncture . 10/03/2018 [facility] fluoro DX DATE: 10/03/2018 Center INDICATION: 68-year-old male with suspicion for acute transverse myelitis, who underwent unsuccessful recent lumbar puncture at bedside. TECHNIQUE AND FINDINGS: Informed consent was obtaine d from patient, and time out procedure was performed. The lower back was prepped a nd draped in sterile fashion with the patient in prone position. Under fluoroscopic guidance a 22 gauge needle was advanced into the thecal sac at the L1-L2 interspace, and 7 mL of clear spinal fluid wa s withdrawn without complication. The opening pressure was not measurable. FLOUROSCOPY TIME: 1.8 minutes. Skin dose: 42.[address] Sanchez was present for the procedure. IMPRESSION: Fluoroscopically guided lumbar punct ure. Spine Thoracic w/wo EXAMINATION: MRI LUMBAR SPINE MR WITHOUT CONTRAST. 10/02/2018 [facility] contrast MRI EXAMINATION: THORACIC SPINE MR WITHOUT AND WITH CONTRAST Center HISTORY: Right lower extremity weakness, predomi nantly in S1 COMPARISON: None TECHNIQUE: - Multiplanar multi-weighte d MRI of the lumbar spine was performed without contrast. - Multiplanar multi-weighted magnetic resonance imaging of the thoracic spine was performed without and with contrast. IV Contrast: 15 cc MultiHance FINDINGS: THORACIC SPINE: Alignment is maintained. The vertebral body heights are preserved. Multilevel degenerative changes are seen in the mid and lower thoracic spine with disc height loss and endplate osteophyte formation. There is abnormal T2 signal elevation in the distal cord/conus medullaris at T12-L1 level measuring 2.2 x 0.7 x 0.5 mm (CC by AP by TR) predominantly involving the right hemicord. The remaining thoracic cord is normal in signal in tensity. Multilevel diffuse annular disc bulges from T6-T7--T12-L1 without significant spinal canal stenosis. Mild right neural foraminal narrowing from T8 through T10. The r emaining levels demonstrate no significant neura l foraminal narrowing. Incidental note is made of a n ectatic appearance of the thoracoabdominal aorta. LUMBAR SPINE: Lordosis of the lumbar spine is maintained. There is grade 1 anterolisthesis of L5 on S1 due to bilateral L5 pars defects. Multilevel endplate Modic type changes are seen. Multilevel degenerative disc d isease is evidenced by endpl ate osteophytosis and disc height loss. There is also multilevel disc desiccation. L1-L2: Disc osteophyte compl ex with superimposed right central disc extrusion with 9 mm inferior migration. Mild spinal canal stenosis. Bilateral facet/ligamentum flavum hypertrophy. Moderate bilateral neural foraminal stenosis. L2-L3: Disc osteophyte compl ex. Moderate spinal canal stenosis. Bilateral facet/ligamentum flavum hypertrophy. Moderate bilateral neural foraminal stenosis. L3-L4: Disc osteophyte compl ex with superimposed small right central disc protrusion. Severe spinal canal stenosis. There is compression of the cauda equina. Bilateral facet/ligamentum flavum hypertroph y. Moderate right/moderate to severe left neural foraminal stenosis. L4-L5: Disc osteophyte compl ex with superimposed central disc protrusion. Moderate spinal canal stenosis. Bilateral facet/ligamentum flavum hypertrophy. Moderate bilateral neural foraminal stenosis. L5-S1: Disc osteophyte compl ex/pseudodisc bulge. No significant spinal canal stenosis. Bilateral facet/ligamentum flavum hypertrophy. Severe bilateral neural foraminal stenosis. IMPRESSION: 1. Abnormal T2 signal eleva tion with mild enhancement in the distal thoracic cord/conus medullaris at T12-L1 predominantly involving the right hemicord. Differential considerations include transverse m yelitis and demyelinating di sease in the appropriate clinical setting. Other considerations including neoplasm and ischemia are thought to be less likely. 2. Severe canal stenosis wi th concern for cauda equina compression at L3-L4. These changes are attributed to diffuse bulging of the posterior annulus associated with degenerative spondylosis superimposed upon a congenitally short pedicles. 3. Multilevel degenerative lumbar spondylosis with disc/osteophyte complexes/herniations and spinal canal and neural foraminal stenoses stenosis as detailed above. These changes are superimposed upon a congenitally short pedicles. 4. Grade 1 anterolisthesis of L5 on S1 with alison ateral L5 pars defects 5. Multilevel degenerative thoracic spondylosis with multilevel disc bulges and foraminal narrowing as detailed above. No significant spinal canal stenosis in the thoracic region 6. Ectatic appearance of the thoracoabdominal a elvira Findings of cauda equina com pression were communicated to Dr. De Souza by Dr. Jacky Modi on 10/02/18 at 1605 hours. [place] SECTION: Neuro Spine lumbar wo contrast EXAM: CT THORACIC SPINE WITHOUT CONTRAS T 10/02/2018 [facility] CT EXAM: CT LUMBAR SPINE WITHOUT CONTRAST Center DATE: 10/02/2018 1:17 CDT INDICATION: Pain and weakness to the RLE COMPARISON: None TECHNIQUE: Volumetric acqui sition of the thoracic and lumbar spines without contrast. Axial, sagittal and coronal reconstructions. IV contrast: None DLP: 1695 mGy-cm FINDINGS: Thoracic spine: Alignment is maintained. Mul tilevel degenerative changes are present T6---T12 levels with endplate osteophytosis and mild disc height loss. Small disc bulges are seen from T6-T7 through T12-L1 without s ignificant spinal canal sten osis. Mild right neural foraminal narrowing from T8 through T10 levels are seen. Remaining levels demonstrate no significant neural foraminal narrowing. Other: Noncalcified and calc ified pleural plaque in the visualized right apex of the lung which may be related to sequelae of prior infection or asbestos exposure. Cardiomegaly. Small sliding hiatal hernia. Ectatic thoracoabdominal aorta. Lumbar spine: Normal lumbar lordosis is se en. There is grade 1 anterolisthesis of L5 on S1 with bilateral L5 pars defects. Multilevel degenerative disc disease with endplate osteophytosis, disc height loss and vacuum phenomenon most pronounced at L1-L2, L2-L3 and L5-S1. Multilevel disc osteophyte complexes along with facet arthrosis are noted. Moderate spinal canal stenosis at L2-L3 and L4-L5 and severe spinal chris l stenosis at L3-L4. Moderat e to severe neural foraminal stenosis from L1-L2 through L5-S1. IMPRESSION: 1. Multilevel disc degenera tive changes and lumbar spondylosis with L2-L3 through L5-S1 moderate to severe neural foraminal stenosis and L3--L5 moderate to severe spinal canal stenosis. 2. Multilevel thoracic spon dylosis with T6-T7 through T12-L1 small disc bulges and T8-T10 right mild neural foraminal narrowing as detailed above. 3. Grade 1 anterolisthesis of L5 on S1 with alison ateral L5 pars defects. 4. Ectatic thoracoabdominal aorta 5. Noncalcified and calcifi ed pleural plaque along the right apex could represent sequelae of prior infection or asbestos exposure. Please correlate with history. [place] SECTION: Neuro Spine thoracic wo contrast EXAM: CT THORACIC SPINE WITHOUT CONTR AST 10/02/2018 [facility] CT EXAM: CT LUMBAR SPINE WITHOUT CONTRAST Center DATE: 10/02/2018 1:17 CDT INDICATION: Pain and weakness to the RLE COMPARISON: None TECHNIQUE: Volumetric acqui sition of the thoracic and lumbar spines without contrast. Axial, sagittal and coronal reconstructions. IV contrast: None DLP: 1695 mGy-cm FINDINGS: Thoracic spine: Alignment is maintained. Mul tilevel degenerative changes are present T6---T12 levels with endplate osteophytosis and mild disc height loss. Small disc bulges are seen from T6-T7 through T12-L1 without s ignificant spinal canal sten osis. Mild right neural foraminal narrowing from T8 through T10 levels are seen. Remaining levels demonstrate no significant neural foraminal narrowing. Other: Noncalcified and calc ified pleural plaque in the visualized right apex of the lung which may be related to sequelae of prior infection or asbestos exposure. Cardiomegaly. Small sliding hiatal hernia. Ectatic thoracoabdominal aorta. Lumbar spine: Normal lumbar lordosis is se en. There is grade 1 anterolisthesis of L5 on S1 with bilateral L5 pars defects. Multilevel degenerative disc disease with endplate osteophytosis, disc height loss and vacuum phenomenon most pronounced at L1-L2, L2-L3 and L5-S1. Multilevel disc osteophyte complexes along with facet arthrosis are noted. Moderate spinal canal stenosis at L2-L3 and L4-L5 and severe spinal chris l stenosis at L3-L4. Moderat e to severe neural foraminal stenosis from L1-L2 through L5-S1. IMPRESSION: 1. Multilevel disc degenera tive changes and lumbar spondylosis with L2-L3 through L5-S1 moderate to severe neural foraminal stenosis and L3--L5 moderate to severe spinal canal stenosis. 2. Multilevel thoracic spon dylosis with T6-T7 through T12-L1 small disc bulges and T8-T10 right mild neural foraminal narrowing as detailed above. 3. Grade 1 anterolisthesis of L5 on S1 with alison ateral L5 pars defects. 4. Ectatic thoracoabdominal aorta 5. Noncalcified and calcifi ed pleural plaque along the right apex could represent sequelae of prior infection or asbestos exposure. Please correlate with history. [place] SECTION: Neuro Spine lumbar wo contrast EXAMINATION: MRI LUMBAR SPINE MR WI THOUT CONTRAST. 10/01/2018 [facility] MRI EXAMINATION: THORACIC SPINE MR WITHOUT AND WITH CONTRAST Center HISTORY: Right lower extremity weakness, predomi nantly in S1 COMPARISON: None TECHNIQUE: - Multiplanar multi-weighte d MRI of the lumbar spine was performed without contrast. - Multiplanar multi-weighted magnetic resonance imaging of the thoracic spine was performed without and with contrast. IV Contrast: 15 cc MultiHance FINDINGS: THORACIC SPINE: Alignment is maintained. The vertebral body heights are preserved. Multilevel degenerative changes are seen in the mid and lower thoracic spine with disc height loss and endplate osteophyte formation. There is abnormal T2 signal elevation in the distal cord/conus medullaris at T12-L1 level measuring 2.2 x 0.7 x 0.5 mm (CC by AP by TR) predominantly involving the right hemicord. The remaining thoracic cord is normal in signal in tensity. Multilevel diffuse annular disc bulges from T6-T7--T12-L1 without significant spinal canal stenosis. Mild right neural foraminal narrowing from T8 through T10. The r emaining levels demonstrate no significant neura l foraminal narrowing. Incidental note is made of a n ectatic appearance of the thoracoabdominal aorta. LUMBAR SPINE: Lordosis of the lumbar spine is maintained. There is grade 1 anterolisthesis of L5 on S1 due to bilateral L5 pars defects. Multilevel endplate Modic type changes are seen. Multilevel degenerative disc d isease is evidenced by endpl ate osteophytosis and disc height loss. There is also multilevel disc desiccation. L1-L2: Disc osteophyte compl ex with superimposed right central disc extrusion with 9 mm inferior migration. Mild spinal canal stenosis. Bilateral facet/ligamentum flavum hypertrophy. Moderate bilateral neural foraminal stenosis. L2-L3: Disc osteophyte compl ex. Moderate spinal canal stenosis. Bilateral facet/ligamentum flavum hypertrophy. Moderate bilateral neural foraminal stenosis. L3-L4: Disc osteophyte compl ex with superimposed small right central disc protrusion. Severe spinal canal stenosis. There is compression of the cauda equina. Bilateral facet/ligamentum flavum hypertroph y. Moderate right/moderate to severe left neural foraminal stenosis. L4-L5: Disc osteophyte compl ex with superimposed central disc protrusion. Moderate spinal canal stenosis. Bilateral facet/ligamentum flavum hypertrophy. Moderate bilateral neural foraminal stenosis. L5-S1: Disc osteophyte compl ex/pseudodisc bulge. No significant spinal canal stenosis. Bilateral facet/ligamentum flavum hypertrophy. Severe bilateral neural foraminal stenosis. IMPRESSION: 1. Abnormal T2 signal eleva tion with mild enhancement in the distal thoracic cord/conus medullaris at T12-L1 predominantly involving the right hemicord. Differential considerations include transverse m yelitis and demyelinating di sease in the appropriate clinical setting. Other considerations including neoplasm and ischemia are thought to be less likely. 2. Severe canal stenosis wi th concern for cauda equina compression at L3-L4. These changes are attributed to diffuse bulging of the posterior annulus associated with degenerative spondylosis superimposed upon a congenitally short pedicles. 3. Multilevel degenerative lumbar spondylosis with disc/osteophyte complexes/herniations and spinal canal and neural foraminal stenoses stenosis as detailed above. These changes are superimposed upon a congenitally short pedicles. 4. Grade 1 anterolisthesis of L5 on S1 with alison ateral L5 pars defects 5. Multilevel degenerative thoracic spondylosis with multilevel disc bulges and foraminal narrowing as detailed above. No significant spinal canal stenosis in the thoracic region 6. Ectatic appearance of the thoracoabdominal a elvira Findings of cauda equina com pression were communicated to Dr. De Souza by Dr. Jacky Modi on 10/02/18 at 1605 hours. [place] SECTION: Neuro Consultation Notes No Data Provided for This Section Discharge Summaries No Data Provided for This Section History and Physicals No Data Provided for This Section Vital Signs Vital Sign Value Date Comments Source Temperature Oral (F) 98.2 F 03/13/2019 [facility] Heart Rate 81 03/13/2019 [facility] Respitory Rate 18 03/13/2019 [facility] Systolic (mm Hg) 119 03/13/2019 [facility] Diastolic (mm Hg) 67 03/13/2019 [facility] Temperature Oral (F) 98.3 F 03/13/2019 [facility] Heart Rate 69 03/13/2019 [facility] Respitory Rate 18 03/13/2019 [facility] Systolic (mm Hg) 123 03/13/2019 [facility] Diastolic (mm Hg) 67 03/13/2019 [facility] Temperature Oral (F) 98.3 F 03/13/2019 [facility] Heart Rate 74 03/13/2019 [facility] Respitory Rate 20 03/13/2019 [facility] Systolic (mm Hg) 127 03/13/2019 [facility] Diastolic (mm Hg) 71 03/13/2019 [facility] Height 170.18 cm 03/13/2019 [facility] Weight 81.818 03/13/2019 [facility] BMI Calculated 28.25 03/13/2019 [facility] Height 170.18 cm 03/12/2019 [facility] BMI Calculated 28.25 03/12/2019 [facility] Weight 81.818 03/12/2019 [facility] Temperature Oral (F) 97.6 F 10/26/2018 [facility] Heart Rate 80 10/26/2018 [facility] Respitory Rate 18 10/26/2018 [facility] Systolic (mm Hg) 119 10/26/2018 [facility] Diastolic (mm Hg) 72 10/26/2018 [facility] Temperature Oral (F) 97.8 F 10/26/2018 [facility] Heart Rate 67 10/26/2018 [facility] Respitory Rate 18 10/26/2018 [facility] Systolic (mm Hg) 113 10/26/2018 [facility] Diastolic (mm Hg) 62 10/26/2018 [facility] Temperature Oral (F) 98.1 F 10/26/2018 [facility] Heart Rate 88 10/26/2018 [facility] Respitory Rate 18 10/26/2018 [facility] Center Systolic (mm Hg) 117 10/26/2018 [facility] Diastolic (mm Hg) 63 10/26/2018 [facility] Height 170.18 cm 10/09/2018 [facility] Height 170.18 cm 10/09/2018 [facility] Weight 88.182 10/09/2018 [facility] BMI Calculated 30.45 10/09/2018 [facility] Center Systolic (mm Hg) 145 10/06/2018 [facility] Diastolic (mm Hg) 68 10/06/2018 [facility] Heart Rate 55 10/06/2018 [facility] Respitory Rate 18 10/06/2018 [facility] Temperature Oral (F) 98.0 F 10/06/2018 [facility] Systolic (mm Hg) 130 10/06/2018 [facility] Diastolic (mm Hg) 62 10/06/2018 [facility] Heart Rate 63 10/06/2018 [facility] Respitory Rate 16 10/06/2018 [facility] Temperature Oral (F) 98.0 F 10/06/2018 [facility] Systolic (mm Hg) 123 10/06/2018 [facility] Diastolic (mm Hg) 61 10/06/2018 [facility] Heart Rate 67 10/06/2018 [facility] Respitory Rate 16 10/06/2018 [facility] Temperature Oral (F) 97.3 F 10/06/2018 [facility] Height 170.18 cm 10/05/2018 [facility] BMI Calculated 31.08 10/05/2018 [facility] Weight 90.003 10/05/2018 [facility] Height 170.18 cm 10/02/2018 [facility] Weight 93.636 10/02/2018 [facility] BMI Calculated 32.33 10/02/2018 [facility] Encounters Location Location Encounter Encounter Reason Attending ADM MT Stat us Source Details Type Number For Provider Date Date Visit [facility] [id number] Tony Smart 10/01 10/06 [facility] Cesar 0 [facility] Inpatient [id number] Eric 10/09 10/26 [facility] [address] [place] [facility] Observation [id number] Keya Oropeza 03/12 03/14 [facility] Out[facility] Diag [id number] Michelle 04/16 04/17 [facility] [place] Procedures Procedure Code Date Perfomer Comments Source Spinal puncture, 84200 10/11/2018 [facility] lumbar, [facility] diagnostic Center Clipping of [id number] [facility] cerebral aneurysm [facility] Shoulder repair [id number] [facility] [place] Assessment and Plan Assessment and Plan Date Source Extracted from:Title: Team D History and Physical 03/14/2019 [facility] Author: Charbel Saavedra MD Date: 03/12/19 Mr. Richmond a 69 year old with PMH of HTN, HLD, transverse myelitis, and aneurysm here for R foot swelling and redness that began about 3 days ago. Differential includes cellulitis vserisypelas vs vzv.tdap and cipro given in ED. Will delores n to treat with IV clinda and cipro and observe. 1.Puncture wound of foot, right(S91.331A) 2.Cellulitis of right foot(L03.115) - Nail puncture with pus - High concern for mrsa, strep, pseudomonas - Ciprofloxacin 400 mg ivp x1 in ED. Will continue 500 cipro bid po. - Clindamycin 600 mg ivp tid for cellulitis coverage. - XR non-concerning for osteo, will observe. - wbc 10.6 3.Cellulitis of right groin(L03.314) - Should be covered with clindamycin. 4.Creatinine elevation(R79.89) - cr 1.66 today, baseline around 1.3 in EMR. was elevated with VIJAY in november, this may be his new baseline. - plan to trend on am labs. Charbel Saavedra MD Internal Medicine, PGY 1 subq heparin Home after improvement TEACHING ATTENDING ATTESTATION STATEMENT: I have seen and examined this patient an d discussed the findings on this patient in detail with the team on teaching rounds. I have reviewed the note above and I agree with the findings and plan of care outlined by Dr. Saavedra with the following additions/ exceptio ns likely CKD , continue to monitor renal function. HTN continue home meds Extracted from:Title: Neurology Progress Note 10/26/2018 [facility] Author: Stacey Esparza MD Date: 10/25/18 Neurology Progress Note Subjective: No acute events overnight. Patient is doing well and denies any new complaints. History of present illness 68 yo M, PMHx HTN and aSAH (s/p aneurysm clipping), with recent admission (10/02- 10/06) for rapidly progressive RLE weakness, urinary incontinence, and "heavy" sensation from genital region to B LE. MRI T-spine showed T11-12 enhancemen t concerning for conus medullaris at this time and diagnosis of transverse myelitis given with pt treated with 5 days of IVMP and discharged to rehab. During this admission, MRI L-spine (done only witho ut contrast) showing L3-L4 stenosis as well. While at rehab, pt with persistent urinary retention and some fecal incontinence with improvement in BLE strength. Pt readmitted after evaluation by PCP for concerns of persistent bowel and bladder symptoms as well as severe pain on walking which is new. NSG was planning to take him to OR for lumbar stenosis, however most recent thoracic and lumbar spine MR I w/wo demonstrating worsening enhancing lesions and now nerve root enhancement (of note: there was no contrast imaging on L spine on the first admission). Surgery is on hold. Hospital Course: 10/11: LP, MRI Brain w/wo contrast ordered/ Imaging review [facility] Radiology 10/12: Day #1 steroids; Started Gabapenti n 300 TID, Ordered Zinc, Paraneoplastic CSF Panel; Ordered Abdomen/ Pelvis CT; Pending Cytology 10/13: Day #2 steroids; JJ CSF and serum wnl, Negative Cytology, Negative culture, Negative gram stain 10/14: Day # 3 steroids. Improving weakness and sensory meeks es 10/15: Day #4 steroids. Started Bethanechol 5m TID for urinar y incontinence 10/16: Day #5 steroids. 10/17: Trouble with straight cath, sent myelin basic protein in CSF and serum anti MOG antibody and NMO 10/18: He was complaining of suprapubic pr essure and intermittent urinary incontinency that seems overflow. no change in sensory symptoms and weakness. Cr increased to 1.6, insert Stevens catheter. Consulted Dr. Jonas. 10/19: Worsening VIJAY despite stevens placeme nt. Febrile overnight with new UTI, started on Ceftriaxone. Medicine consulted. 10/20: Worsening VIJAY despite fluids. Afebr ile and improving leukocytosis. Nephrology consulted. Platelets were downtrending for past few days, now thrombocytopenic. Pulmonology consulted to evaluate lung findings for possible malignancy or sarcoidosis and possible biopsy. 10/21: VIJAY improved, Cr trending down. Per pulmonology the lung nodules are too small for biopsy. Consulted Dr. Mckeon who recommended follow up with her in 2 weeks after discharge. HIT panel negativ e, HSQ restarted. Hematology following p eripherally in case his PLT count does not improve 10/22: GFR improving. Consulted hematology regarding thrombocytopenia. Per Hematology the most likely etiology of thrombocytopenia at this point is infection. Will repeat UC. 10/23: VIJAY and thrombocytopenia improving. Nephrology signed o ff. 10/24: Medically cleared for discharge, pe nding confirmation of room availability in [facility] facility Scheduled Meds (10): 10/20/18 (Suspended) amLODIPine 5 mg PO Q12H 10/20/18 bethanechol (Urecholine) 5 mg PO TID 10/23/18 ergocalciferol (ergocalciferol 50,000 intl units oral capsule) 50,000 IntlUnit PO Q7D 10/12/18 famotidine 20 mg PO BID 10/11/18 fenofibrate 145 mg PO Daily 10/21/18 gabapentin (gabapentin 100 mg oral capsule) 100 mg PO Daily 10/21/18 heparin 5,000 unit SUB-Q Q8H 10/09/18 metoprolol (metoprolol extended release) 100 mg PO Daily 10/19/18 polyethylene glycol 3350 (MiraLax) 17 gm PO Daily 10/19/18 senna 17.2 mg PO BID Vitals Tmp(F) Pulse BP RR SpO2 FIO2 10/25 20:19 98.1 79 112/65 18 98 --- 10/25 16:21 97.5 88 116/68 18 96 --- 10/25 12:15 98 84 114/70 18 96 --- 10/25 08:34 98.3 98 113/63 18 97 --- 10/25 04:11 98.1 85 116/71 18 96 --- 24 Hr Tmax: 98.7F (37.06c) at 10/24 23:4 9 Vital Signs are the last 5 in the past 48 hours. GENERAL: NAD LUNGS: symmetric breathing sounds CV: RRR, no extra sounds ABD: soft, abdominal distention, no suprapubic tenderness, n o CVA tenderness. NEURO Mental Status: awake alert, oriented to person, place and ti me Speech/language: naming, repetition, comprehension and fluen cy are intact. Cranial Nerves: EOMI, visual hernandez full , pupils 3 mm briskly reactive bilaterally, facial sensation intact, face symmetric, hearing intact, tongue/uvula/soft palate midline, normal sternocleidomastoid and trapezius muscle strength. No evidence of tongue atrophy or fibrillations. Motor - Strength 5/5 in bilateral UE RLE- Iliopsoas 5/5, Knee extension 5/5, Knee flexion 5/5, dorsiflexion 4+/5, plantarflexion 4-/5 LLE- Iliopsoas 5/5, Knee extension 5/5, Knee flexion 5/5, dorsiflexion 5/5, plantarflexion 5/5 Tone is normal Sensation- decreased vibration on both f eet, right> left, intact proprioception, Coordination: FTN wnl Imagin10/02/2018 MRI Thoracic w/wo contrast/ Lumbar wo contrast IMPRESSION: 1. Abnormal T2 signal elevation with mi ld enhancement in the distal thoracic cord/conus medullaris at T12-L1 predominantly involving the right hemicord. Differential considerations include transverse m yelitis and demyelinating disease in the appropriate clinical setting. Other considerations including neoplasm and ischemia are thought to be less likely. 2. Severe canal stenosis with concern f or cauda equina compression at L3-L4. These changes are attributed to diffuse bulging of the posterior annulus associated with degenerative spondylosis superimposed upon a congenitally short pedicles. 3. Multilevel degenerative lumbar spond ylosis with disc/osteophyte complexes/herniations and spinal canal and neural foraminal stenoses stenosis as detailed above. These changes are superimposed upon a congenitally short pedicles. 4. Grade 1 anterolisthesis of L5 on S1 with bilateral L5 pa rs defects 5. Multilevel degenerative thoracic spo ndylosis with multilevel disc bulges and foraminal narrowing as detailed above. No significant spinal canal stenosis in the thoracic region 6. Ectatic appearance of the thoracoabdominal aorta 10/09/2018 MRI Lumbar Spine w/wo contrast IMPRESSION: 1. Abnormal T2 intensity and contrast enhancement of the conus medullaris, predominantly involving the right hemicord more than the left, at the T12 level. T2 hyperintense signal is similar in distrib ution. Enhancement may be somewhat more conspicuous which may be due to evolution. Enhancement of the equina nerve roots. Postcontrast imaging of the lumbar spine was not obtained on the prior exam. Fin dings may represent an inflammatory etio logy. The presence of a normal Lumbar puncture would speak against infectious/neoplastic etiologies. 2. Moderate to severe spinal canal sten osis at L3-L4 with resulting crowding of the cauda equina. This finding is similar to prior study from October 02. 3. Chronic spondylolysis at L5 and asso ciated anterolisthesis severely narrow the L5-S1 neural foramina with nerve root impingement bilaterally. 10/12/2018 CT ABDOMEN AND PELVIS WITH CONTRAST IMPRESSION: 1. No evidence of intra-abdominal or pelvic mass. 2. No abdominal or pelvic lymphadenopathy. 3. Small nonobstructing bilateral renal calculi and a small left renal cyst. 4. Small hypodensity in hepatic segment 5, likely cyst. Additional tiny hypodensity in hepatic segment 5 post a small to characterize. 5. Please refer to same day chest CT for intrathoracic find ings. 10/12/2018 CT CHEST WITH CONTRAST IMPRESSION: 1. Small right lower lobe nodules measu ring up to 3 mm may represent infectious/inflammatory etiology or sequela of prior infection. If there is concern for malignancy, CT follow-up in 3 months recomme nded. If the patient does not have histo ry of prior malignancy, optional CT follow-up in 12 months may be performed, according to Fleischner guidelines. 2. Bilateral symmetric calcified pleura l plaques likely represent sequela of prior infectious/inflammatory process and/or asbestos related pleural plaques. 3. Please refer to report from concurre ntly performed CT abdomen pelvis for abdominal findings. 10/14/2018 MRI BRAIN WITH AND WITHOUT CONTRAST IMPRESSION: 1. No acute intracranial abnormality or pathological intracranial enhancement. 2. Mild chronic microvascular changes a nd encephalomalacia in the right frontal lobe. Labs (Last four charted values) WBC 5.0 (OCT 10) 5.5 (OCT 08) 6.8 (OCT 07) H 13.2 (OCT 05) Hgb L 11.0 (SEP 1 0) L 10.7 (SEP 08) L 11.0 (OCT 07) L 11.8 (OCT 05) Hct L 32.5 (SEP 1 0) L 31.2 (OCT 08) L 31.6 (SEP 07) L 33.8 (SEP 05) Plt 219 (SEP 10) L 103 (SEP 08) L 86 (SEP 07) L 103 (SEP 05) Na 137 (SEP 10) 138 (SEP 08) 139 (SEP 08) L 134 (SEP 07) K 4.1 (SEP 10) 3.8 (SEP 08) 4.0 (SEP 08) 3.8 (SEP 07) CO2 25 (SEP 10) 24 (SEP 08) L 16 (SEP 08) L 20 (SEP 07) Cl 106 (SEP 10) 106 (SEP 08) 109 (SEP 08) 104 (SEP 07) Cr H 2.01 (SEP 1 0) H 2.02 (SEP 08) H 2.14 (SEP 08) H 2.42 (SEP 07) BUN 21 (SEP 10) 21 (SEP 08) 22 (SEP 08) H 26 (SEP 07) Glucose Random 82 (SEP 1 0) H 113 (SEP 08) 72 (SEP 08) C 44 (SEP 07) Mg 2.3 (SEP 10) 2.2 (SEP 08) 2.4 (SEP 07) 2.0 (SEP 05) Phos L 2.1 (OCT 10 ) L 1.6 (SEP 08) L 1.6 (SEP 07) L 1.7 (OCT 22) Ca L 8.0 (OCT 10 ) L 7.7 (OCT 23) L 7.5 (OCT 23) L 7.7 (OCT 22) PT 13.5 (OCT 11) 14.6 (OCT 09) INR 1.05 (OCT 11) 1.16 (OCT 09) PTT 34.6 (OCT 11) 33.1 (OCT 09) CSF studies: CMV: negative VZV: negative HSV 1 and 2: negative Entrovirus: negative EBV --> not done VDRL: negative JJ: normal x2 IgG index: normal No oligoclonal bands CSF basic myline protoin: not done NMO Ab negative x2 MOG Ab pending CSF paraneoplastic panel: pending Serum Paraneoplastic panel: pending Cytology negative Zinc level WNL Assessment: Patient is a 68 year old male, with PMHx of HTN and aSAH (s/p aneurysm clipping), who presented with three weeks history of urinary retention, and rapidly progressive RLE weakness, and paresthesia from genital region to BLE. on 09/26, MRI wo c ontrast showed distal thoracic cord/conus medullaris at T12-L1 lesion, he was treated with 5 days IVSM with no significant improvement and was discharged to Rehab . Was readmitted on 10/09 with persistent symptoms. Repeat MRI w/Wo contrast showed enhancing conus lesion with enhancing cauda equina and also enhancing roots. CSF was not suggestive of infectious etiol ogy. He started on second round of IVSM for unspecified myeloradiculitis. All the work up as above has been negative so far. 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 First round of steroids done 10/02-10/06. - Neuro-oncology consult: they agree nathan t symptoms and imaging suggests more inflammatory than tumor - Consulted Dr. Mckeon who recommen ded follow up with her in 2 weeks after discharge, will likely repeat imaging #Lumbar Canal Stenosis -the current symptoms are not fully explained with stenosis -No surgical interventions planned, NSGY follow up 2 weeks a fter d/c #VIJAY on CKD/ Multifactorial post and pre renal - Cr elevated to 1.6 on 10/16, trending down - No improvement after stevens placement, unlikely to be obstr uctive uropathy - Kidney US 10/19 showing no hydronephrosis, possible parenchy mal disease. - Nephrology on board; per nephrology th ere is no concern for intrinsic kidney disease at this point. #Complicated UTI - UA 10/19 concerning for infection, - UCx 10/19 growing MSSA - completed Ceftriaxone 1g IV Q24H for 7 days -Repeat urine cx sent #Thrombocytopenia, improving - Platelets are downtrended 177 -> 86 10/18 to 10/22, now impro ving - HIT panel negative - Hematology consulted, most likely cau se is active infection (UTI), no concern for BM pathology #Constipation/resolved - Senna and Miralax -Bisacodyl RI PRN Stacey Esparza MD. Neurology PGY-2 Neurology Attending: I reviewed the resident's note, personal ly reviewed all the patients labs and imaging studies and performed a neurological exam. I discussed the assessment and plan of care and agree with e plan as outlined in the resident's not e. See note below for additions and/or exceptions and my findings. Pending IPR, will f/u in [address] Mike Vizcarra MD Product Development Manager Extracted from:Title: Hematology Initial Consult Note Author: Sly Chandler MD Date: 10/22/18 68 yo M with PMH of HTN and aSAH (s/p an eurysm clipping in 2003) with recent admission (10/02-10/06) for rapidly progressive RLE weakness, urinary incontinence anddiagnosedwith transverse myelitiss/p norma tment with5 days ofIV steroidsas well as lumbar stenosis-was discharged to rehab.Patient wasreadmitted from rehabon 10/09after evaluation by PCP for concerns of persistent bowel and bladder symptoms and severe pain on walking. Repeat MRI showe d enhancing conus lesion with enhancing cauda equina and also enhancing roots. CSF was not suggestive of infectious etiology. He wasstarted on second round of IV steroids for5 days(10/12-10/16)for unspecif ied myeloradiculitis. Workup has been negative so far and per neurology note, possible running diagnosis is neurosarcoidosis vs demyelination vs Paraneoplastic/Ne oplastic (study results are pending). Ne urosurgery has been following as well and plans were initially for surgical decompression of spinal cord however MRI demonstrated worsening lesions and further wo rkup for etiology was recommended prior to operative intervention. Course has been complicated by VIJAY (renal following, thinking likely 2/2 IV contrast and prerenal injury)and UTI currentlybeingtreated with Ceftriaxone that was started on 10/19. Hematology is consulted for worsenedthrombocytopenia. Thrombocytopenia -Platelet count declining since admissio n: 237k on admission (10/09)--> 227k (10/13) -->177k (10/18)-->141k (10/19)-->103k (10/20)-->86k today -HIT EWELINA negative on 10/20/18, OD 0.073 -CT A/P on 10/12 with no splenomegaly -On Ceftriaxone since 10/19/18 Recommendations: -We reviewed peripheral blood smear: no significant platelet clumping or abnormal morphology of platelets -CBC on admissionwith normal WBC, Hgb, a nd platelets. Hgb andWBC are not low so we have very low suspicion for a primary bone marrow process driving thrombocytopenia.We suspect that patient has infectio us process, likely source being urinary tract given urinary retention requiring numerous straight caths and now Stevens catheter, +urine culture, andspiked feveryesterday. We recommend to treat for infect ion and expect improvement in platelets with resolution of i nfection -We will continue to monitor platelet counts daily Thank you for this interesting consult. Patient was seen and plan discussed with hematology attendin Dr. Ramesh gil. Yamilet Francisco MD PGY-3, Internal Medicine TEACHING PHYSICIAN ADDENDUM. I saw and personally examined the patient with the Resident, Dr. Francisco on 10/22/2018 and I have reviewed the note above and agree with the history, exam findings and the plan of care. Extracted from:Title: CONSULT Author: Mac Horowitz MD Date: 10/20/18 1.VIJAY (acute kidney injury)(N17.9) FENa calculated to be less than 1%, most likely prerenal azo temia Patient is currently on100 mL/h of salinemaintenance We will give 1 L bolusand repeatBMP. Obstructioncould have barbara contributing factor as well. However ultrasound is negative for any hydronephrosis no major acid- base/ electrolyte abnormalities noted. We will continue to monitor creatinine, avoidnephrotoxins. Strict I's and O's 2.Urinary retention(R33.9) Status post Stevens 3.Transverse myelitis(G37.3) Status post second course of steroids Work-up so far negative, pending paraneoplastic work-up Neurology following 4.Lumbar canal stenosis(M48.061) Neurosurgery on board 5.Chronic kidney disease, stage 3(N18.3) Now with VIJAY 6.Hypertension(I10) Stable on amlodipine, metoprolol 7.Leucocytosis(D72.829) Unclear etiology, UA shows elevated leukocytes esterase, uri ne culture pending No fevers noted, no other foci of infection clinically Monitor 8.Hyponatremia(E87.1) Likely hypovolemic Asymptomatic Continue to monitor with hydration 9.Acute cyclitis(H20.00) UA showing elevatedLE, patient currently has a Stevens Urine culture pending Continue ceftriaxone and follow urine culture. Extracted from:Title: Neurology Progress Note 10/06/2018 [facility] Author: Gia Vaughan MD Date: 10/05/18 Neurology Progress Note Name: MONAE ROCK Subjective: Patient had visitors in the room, reported some improvement. HISTORY OF PRESENT ILLNESS: 68 yo M with PMH HTN and aSAH (s/p aneur ysm clipping) presenting with rapidly progressive RLE weakness associated with urinary incontinence and "feeling of heaviness"/pain from genital area to both b/l LE. Patient was in usual state of health unt ma Wednesday morning when he noticed that he was having a feeling of "heaviness" and pain in b/l lower extremities up to the level of hips. A day prior to this, he was moving heavy equipment arou nd. This continued worsening on Wednesday and by Wednesday morning he noticed that he was unable to move his right toe very well. On attempting to walk he tripped s everal times. By evening he sta rted having intermittent urinary incontinence and saddle anesthesia. Pt's daughter took the patient to a local ER where a CT-Lumbar spine was done that was r eported to be normal. He was also give a Medrol-Dose Pack and discharged. By Wednesday, he was having persistent urinary incontinence and he was unable to move his RLE due to heaviness. Daughter therefore brought patient to [facility] In ED, patient received a Lumbar and Thoracic CT that were unremarkable except DJD, a lumbar MRI was also ordered. Neurology was consulted for further management. Following exa mination (see below), I requested the ED resident to order a Thoracic MRI w/wo contrast. Patient is s/p clipping for an Acomm ane urysm that was treated at this institution in 2003 ROS GEN: No fever, chills CVS: No chest pain, no palpitations PULM: No SOB, cough, wheezing Medications (19) Active Scheduled: (9) amLODIPine 5 mg TAB 5 mg 1 tab, PO, BID docusate sodium 100 mg CAP 100 mg 1 cap, PO, Q12H fenofibrate 145 mg tab 145 mg 1 tab, PO, Daily heparin 5000 unit/1 ml INJ VL 5,000 unit 1 mL, SUB-Q, Q8H methylPREDNISolone SOD SUCC 1000mg INJ + sodium chloride 0.9% INJ 100 mL 1 gm, IV, Daily metoprolol succinate 100 mg ERT 100 mg 1 tab, PO, Daily pantoprazole 40 mg ECT 40 mg 1 tab, PO, Before Breakfast senna 8.6 mg TAB 17.2 mg 2 tab, PO, Q12H sodium chloride 0.9% 10 ml flush syr BD 10 ml, IVP, Q12H Continuous: (0) PRN: (10) Dextrose 50% 50 ml INJ syringe 12.5 gm 25 mL, IVP, PRN Dextrose 50% 50 ml INJ syringe 25 gm 50 mL, IVP, PRN glucagon recombinant 1 mg PDR 1 mg, IM, PRN insulin reg human rec 100 unit/ml INJ 3 ml Vial 2 unit 0.02 mL, SUB-Q, Sliding Scale insulin reg human rec 100 unit/ml INJ 3 ml Vial 4 unit 0.04 mL, SUB-Q, Sliding Scale insulin reg human rec 100 unit/ml INJ 3 ml Vial 6 unit 0.06 mL, SUB-Q, Sliding Scale insulin reg human rec 100 unit/ml INJ 3 ml Vial 8 unit 0.08 mL, SUB-Q, Sliding Scale insulin reg human rec 100 unit/ml INJ 3 ml Vial 10 unit 0.1 mL, SUB-Q, Sliding Scale ondansetron 4 mg/2ml INJ VL 4 mg 2 mL, IVP, Q8H sodium chloride 0.9% 10 ml flush syr BD 10 ml, IVP, PRN Objective: Vitals Tmp(F) Pulse BP RR SpO2 FIO2 10/05 12:00 ---- 64 145/66 -- 97 --- 10/05 10:25 ---- 62 124/66 16 99 --- 10/05 08:00 ---- 66 144/67 16 99 --- 10/05 07:10 97.6 --- ----- -- --- --- 10/05 06:00 ---- --- 115/70 -- --- --- 24 Hr Tmax: 98.4F (36.89c) at 10/04 15:2 9 Vital Signs are the last 5 in the past 48 hours. Physical Exam: Gen: Awake, alert. No acute distress. HEENT: NCAT, anicteric sclera. CV: RRR, intact radial pulses Pulm: symmetric chest expansion Neurologic Exam: Mental Status: Oriented to person, location, and year. Follo wing all commands. Language: speech is clear. Comprehension intact. Cranial Nerves: PERRL 3mm/brisk. EOMI, v isual hernandez full to threat, no facial asymmetry tongue protrudes midline, SCM/trapezius grossly intact. Motor: RUE and LUE 5/5, LLE 5/5, RLE plantar flexion somewh at improved Tone: is normal. Babinski: positive on left. Sensation: Intact to light touch bilaterally. Coordination: FTN intact bilaterally Gait: unable to access Labs (Last four charted values) WBC 5.7 (OCT 05) H 12.9 (OCT 04) 10.3 (OCT 03) H 13.3 (OCT 02) Hgb L 13.2 (SEP 16) L 13.3 (OCT 04) L 13.0 (OCT 03) 14.3 (OCT 02) Hct L 37.9 (SEP 16) L 39.4 (OCT 04) L 37.6 (OCT 03) L 40.6 (OCT 02) Plt 216 (OCT 05) 226 (OCT 04) 225 (OCT 03) 254 (OCT 02) Na 145 (OCT 05) 142 (OCT 04) 142 (OCT 03) 136 (OCT 01) K 4.4 (OCT 05) 4.3 (OCT 04) 4.3 (OCT 03) 4.3 (OCT 01) CO2 27 (OCT 05) 26 (OCT 04) L 23 (OCT 03) 25 (OCT 01) Cl 109 (OCT 05) H 111 (OCT 04) 109 (OCT 03) 102 (OCT 01) Cr H 1.42 (SEP 16) H 1.58 (OCT 04) H 1.66 (OCT 03) H 1.71 (OCT 01) BUN H 45 (OCT 05) H 50 (OCT 04) H 44 (OCT 03) H 37 (OCT 01) Glucose Random H 122 () H 108 (OCT 04) H 149 (OCT 03) H 132 (OCT 03) Mg H 2.6 (OCT 05 ) H 2.8 (OCT 04) H 2.8 (OCT 03) Phos 4.2 (OCT 05) 3.9 (OCT 04) 3.8 (OCT 03) Ca 8.6 (OCT 05) 9.0 (OCT 04) 8.7 (OCT 03) 9.2 (OCT 01) PT 13.6 (OCT 02) 13.3 (OCT 01) INR 1.06 (OCT 02) 1.03 (OCT 01) PTT 31.6 (OCT 02) 35.6 (OCT 01) Diagnostic Tests: Spine thoracic wo contrast CT 10/02/18 01:53:25 IMPRESSION: 1. Severe degenerative changes throughou t the thoracic and lumbar spine with severe spinal canal stenosis from L3-L5. An MRI has been ordered at the time of dictation and is recommended to exclude conus compression. 2. Severe bilateral L3-L4 and L4-L5 neur al foraminal stenosis from disc osteophyte complex. 3. Bilateral L5-S1 pars defects with grade 2 L5 on S1 jadon listhesis. 4. Air at the level of L1-L2 is likely d ue to vacuum disc phenomenon with epidural gas less likely. 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 Transverse Myelitis. MRI thoracic spine w/wo contrast suggestive of T11-T12 (Conus) T2 hyperintense lesion. Daughter grace peralta by phone call (10/04). Patient could tolerate longer gait distance with a walker. 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 TM - MRI Thoracic Spine w/wo contrast - MRI Lumbar Spine - Neurosurgery Consult (recommended f/u outpatient) - +FANNY - Day #4 of steroids - IV Methylprednisone 1g/day x 5 days ENDO Type 2 diabetes mellitus w/o complications -SSI -Start oral meds -goal HgbA1c < 7 GI/ CKD Stage 3 (GFR 30-59) -Gentle hydration -avoid nephrotoxic agents -Miralax for constipation Disposition: Rehab Neurology Attending The patient was seen and examined by me with the resident and I agree with the History/Exam documented. Tony Lewis MD Extracted from:Title: Neuroradiology Consult Note Author: John Dash MD Date: 10/03/18 Neuroradiology Consult Reason for Consultation: image guided lumbar puncture reques t Referring Physician: Dr. Novoa History of Present Illness: 68 year old male with lower extremity we akness and concern for transverse myelitis. Past Medical History: No qualifying data available Past Surgical History: Clipping of cerebral aneurysm Social History: Tobacco Details: Use: Never smoker. Tobacco smo ke exposure: None. Did the Patient Smoke Cigarettes Anytime During the Last 365 Days? No. Cessation Counseling Provided? No. Family History: No qualifying data available Allergies Reviewed: Allergies: No Known Medication Allergies Current Medications: Medications (20) Active Scheduled Meds (8): 10/02/18 amLODIPine 5 mg PO BID 10/02/18 docusate (docusate sodium 100 mg oral capsule) 100 mg PO Q12H 10/02/18 fenofibrate 145 mg PO Daily 10/02/18 methylPREDNISolone + Sodium Chl oride 0.9% IV 100 mL (methylPREDNISolone SODium SUCCinate + Sodium Chloride 0.9% IV 100 mL) 1 gm IV Daily 100 ml/hr 10/02/18 metoprolol (Toprol-XL 100 mg or al tablet, extended release) 100 mg PO Daily 10/02/18 pantoprazole 40 mg PO Before Breakfast 10/02/18 senna 8.6 mg PO Q12H 10/02/18 sodium chloride (Saline Flush 0.9%) 10 ml IVP Q12H Unscheduled Meds: None PRN Meds (10): 10/02/18 Dextrose 50% in Water IV (Dextrose 50% Syringe) 12. 5 gm IVP PRN 10/02/18 Dextrose 50% in Water IV (Dextrose 50% Syringe) 25 gm IVP PRN 10/02/18 Insulin regular 2 unit SUB-Q Sliding Scale 10/02/18 Insulin regular 4 unit SUB-Q Sliding Scale 10/02/18 Insulin regular 6 unit SUB-Q Sliding Scale 10/02/18 Insulin regular 8 unit SUB-Q Sliding Scale 10/02/18 Insulin regular 10 unit SUB-Q Sliding Scale 10/02/18 glucagon 1 mg IM PRN 10/02/18 ondansetron 4 mg IVP Q8H 10/02/18 sodium chloride (Saline Flush 0.9%) 10 ml IVP PRN One Time Meds (2): 10/02/18 (Completed) acetaminophen (Tylenol) 650 mg PO ONCE 10/03/18 (Completed) polyethylene glycol 3350 (MiraLax) 17 gm PO ONCE Continuous Infusions: None Labs: 24hr Labs 10/03 1143 POC Performing Locatio See Note Glucose POC 107 H 10/03 0409 Glucose Lvl 132 H BUN 44 H Creatinine Lvl 1.66 H Sodium Lvl 142 Potassium Lvl 4.3 Chloride Lvl 109 CO2 23 L AGAP 14.3 Calcium Lvl 8.7 eGFR 41 Magnesium Lvl 2.8 H Phosphorus 3.8 WBC 10.3 RBC 4.06 L Hgb 13.0 L Hct 37.6 L MCV 92.7 MCH 31.9 H MCHC 34.4 RDW 13.1 Platelet 225 MPV 8.6 Segs 89.3 H Monocytes 3.0 Lymphocytes 7.6 L Basophils 0.1 Neutrophils # 9.2 H Lymphocytes # 0.8 L Monocytes # 0.3 10/02 1729 Treponemal Ab Non-Reactive MRSA by PCR Negative 10/02 0546 C-ANCA Negative P-ANCA Negative FANNY Positive FANNY Titer 1:320 Impression/Plan: Image guided lumbar puncture. Extracted from:Title: Neurology H&P Author: Octavio De Souza MD Date: 10/02/18 General Neurology H&P Name: MONAE ROCK Date of : 1950 00:00 Requesting Physician/Service: ED Reason for Consult: RLE weakness, numbness HISTORY OF PRESENT ILLNESS: 68 yo M with PMH HTN and aSAH (s/p aneur ysm clipping) presenting with rapidly progressive RLE weakness associated with urinary incontinence and "feeling of heaviness"/pain from genital area to both b/l LE. Patient was in usual state of health unt ma Wednesday when he noticed that he was having a feeling of "heaviness" and pain in b/l lower extremities up to the level of hips. A day prior to this, he was moving heavy equipment [place] und. This continued worsening on Wednesday and by Wednesday morning he noticed that he was unable to move his right toe very well. On attempting to walk he tripped several times. By evening he st arted having intermittent urinary incontinence and saddle anesthesia. Pt's daughter took the patient to a local ER where a CT-Lumbar spine was done that was reported to be normal. He was also give a Medrol-Dose Pack and discharged. By Wednesday, he was having persistent urinary incontinence and he was unable to move his RLE due to heaviness. Daughter therefore brought patient to [facility] In ED, patient received a Lumbar and Tho racic CT that were unremarkable except DJD, a lumbar MRI was also ordered. Neurology was consulted for further management. Following examination (see below), I re quested the ED resident to order a Thoracic MRI w/wo lauren morales. Patient is s/p clipping for an Acomm ane urysm that was treated at this institution in 2003 Review of Systems: GEN: No fever, chills, night sweats, weight loss, fatig ue EYES: No blurred vision, double vision, eye pain ENT: No decreased hearing, nose bleeding, nasal congest ion, sore throat CARDIO: No chest pain, palpitation, orthopnea, dyspnea on exertion PULM: No shortness of breath, cough, wheezing, asthma, sputum, hemoptysis GI: No nausea, vomiting, diarrhea, constipation, Abdomi nal Pain : Urinary Incontinence. NEURO: As per HPI ENDO: No weight loss, weight gain, heat intolerance, co ld intolerance SKIN: No rash, lesion, itching MUSC: Back Pain Past Medical History: aneurysmal SAH HTN Past Surgical History: Aneurysm clipping Shoulder Dislocation Family History: large family, multiple family members with D M/THN Social History: Denies SAD. Lives with Daughter, former luciana swenson Social and Psychosocial Habits Tobacco 10/01/2018 Use: Never smoker Medications: Metoprolol 100 qD Amlodipine 5mg BID Fenofibrate Allergies: Allergies: No Known Medication Allergies Vitals: Vitals Tmp(F) Pulse BP RR SpO2 FIO2 10/01 21:04 ---- 73 139/68 20 98 --- 10/01 18:47 97.8 70 151/90 19 97 --- 24 Hr Tmax: 97.8F (36.56c) at 10/01 18:4 7 Vital Signs are the last 5 in the past 48 hours. Physical Exam: APPEARANCE - Active, alert, well developed, well nourished HEAD - Normocephalic and atraumatic EYES - Pupil equal and reactive to light PHARYNX - Mouth pink, mucous membranes moist. No tonsillar e nlargement NECK - Supple, thyroid non-palpable, no significant adenopat hy LUNGS - Clear to auscultation, no rales or rhonchi CV - Rate rhythm regular, no murmur, equal pulses bilaterall y. ABDOMEN - Soft, non tender, with normal bowel sounds. No hep atosplenomegaly SPINE - Straight, no defects, no scoliosis SKIN: Clear, no rashes Neuroexam AAO*3 Speech: fluent, comprehension intact, repetition and naming intact principal clerk: PERRL 3-2 mm bilaterally, EOM intac t without nystagmus, no ptosis, no facial asymmetry, facial sensation intact, hearing intact, tongue midline without fasciculation or atrophy, palate elevation symmetric Motor: Tone: Normal Power: RUE: 5/5 in Deltoids, 5/5 in elbow f lexors, 5/5 in elbow extensors, 5/5 in wrist flexor, 5/5 in wrist extensor, 5/5 in intrinsic hand muscles. LUE: 5/5 in Deltoids, 5/5 in elbow f lexors, 5/5 in elbow extensors, 5/5 in wrist flexor, 5/5 in wrist extensor, 5/5 in intrinsic hand muscles. RLE: 5/5 in iliopsoas, 5/5 in knee f lexors, 5/5 in knee extensors, 2/5 in ankle dorsi flexors, 2/5 in ankle plantar flexors, 2/5 in toes dorsiflexors, 2/5 in toes plantar flexors. LLE: 5/5 in iliopsoas, 5/5 in knee f lexors, 5/5 in knee extensors, 5/5 in ankle dorsi flexors, 5/5 in ankle plantar flexors, 5/5 in toes dorsiflexors, 5/5 in toes plantar flexors. DTRs: 2+ in bilateral biceps, triceps, brachioradialis, 3+ patellar- bilaterally, and 1+achilles. Crossed adductor reflex + Babinski= Upgoing on Left, Unequivocal on Right Urinary Incontinence Rectal Sphincter Tone-reduced Saddle Anesthesia No spinal tenderness noted. Drift: absent Sensory: Intact and symmetric light touch and pin prick se nsation on bilateral UEs. Intact and symmetric light touch and pin prick sensation on bilateral LEs. Intact vibration and position sense in both fee t. Cerebellar signs: no dysmetria on FTN bilaterally. normal rapid alternating movements bilaterally. no dysalignment on HTS bilaterally. Romberg: Unable to Assess at this time Gait: Unable to Assess at this time Labs: Labs (Last four charted values) WBC H 14.8 (OCT 01) Hgb 14.9 (OCT 01) Hct 43.1 (OCT 01) Plt 278 (OCT 01) Na 136 (OCT 01) K 4.3 (OCT 01) CO2 25 (OCT 01) Cl 102 (OCT 01) Cr H 1.71 (OCT 01) BUN H 37 (OCT 01) Glucose Random H 128 (OCT 01) Ca 9.2 (OCT 01) PT 13.3 (OCT 01) INR 1.03 (OCT 01) PTT 35.6 (OCT 01) Diagnostic Tests: Spine thoracic wo contrast CT 10/02/18 01:53:25 IMPRESSION: 1. Severe degenerative changes throughou t the thoracic and lumbar spine with severe spinal canal stenosis from L3-L5. An MRI has been ordered at the time of dictation and is recommended to exclude conus compression. 2. Severe bilateral L3-L4 and L4-L5 neur al foraminal stenosis from disc osteophyte complex. 3. Bilateral L5-S1 pars defects with grade 2 L5 on S1 jadon listhesis. 4. Air at the level of L1-L2 is likely d ue to vacuum disc phenomenon with epidural gas less likely. 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 Transverse Myelitis. MRI thoracic spine w/wo contrast suggestive of T11-T12 (Conus) T2 hyperintense lesion. 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 TM - MRI Thoracic Spine w/wo contrast - MRI Lumbar Spine - Neurosurgery Consult - Lumbar Puncture CSF Studies - Cell count, proteins - VDRL - Oligoclonal Bands - IgG index - Cytology - Work-up - Serum NMO and MOG antibodies - Vitamin B12 - MMA - FANNY - SSA/SSB - TSH - ESR/CRP - ANCA - Serum Copper and Ceruloplasmin - Vitamin E levels - Paraneoplastic Panel (If above work-up is non-yielding ) HIV Syphilis- serum VDRL Screen West Nile Enterovirus Lyme Disease Mycoplasma Rx- IV Methylprednisone 1g/day x 5 days PPI SSI Paraplegia related to -PT/OT consult CV Essential (primary) hypertension -Aggressive BP control, goal SBP < -Titrate oral agents ENDO Type 2 diabetes mellitus w/o complications -SSI -Start oral meds -goal HgbA1c < 7 GI/ CKD Stage 3 (GFR 30-59) -Gentle hydration -avoid nephrotoxic agents ID Possible Sepsis -Cultures pending -Start ABX Nutrition E66.9 Obesity -diet consult Prophylaxis DVT: Heparin SQ-- HOLDING TILL LP is DONE GI: PPI Bowel: Senna/Doc Diet: Heart Healthy Code Status: Full Code Disposition: IPR THE FOLLOWING WERE PRESENT ON ADMISSION: DIPPER AND DRIER - Conus Medullaris Syndrome vs. Cauda Equina Syndrome, P araparesis Cardiovascular - HTN, DM Infectious - Sepsis Renal - CKD Octavio De Souza MD, MPH Neurology Resident PGY-3 [facility] Neurology Attending The patient was seen and examined by me with the resident and I agree with the History/Exam documented. Tony Lewis MD Plan of Care No Data Provided for This Section Social History Social History Date Source Social History TypeResponse 03/12/2019 [facility] Alcohol Current, Type Beer. Frequency: 1-2 time s per month. Alcohol use interferes with work or home: No. Drinks more than intended: No. Others hurt by drinking: No. Ready to change: No. Household alcohol concerns: No. Substance Abuse Use: None. Smoking Status Never smoker; Exposure to Tobacco Smoke None; Cigarette Smoking Last 365 Days No; Reg Smoking Cessation Counseling No entered on: 03/12/19 Social History TypeResponse 03/12/2019 [facility] Alcohol Current, Type Beer. Frequency: 1-2 time s per month. Alcohol use interferes with work or home: No. Drinks more than intended: No. Others hurt by drinking: No. Ready to change: No. Household alcohol concerns: No. Substance Abuse Use: None. Smoking Status Never smoker; Exposure to Tobacco Smoke None; Cigarette Smoking Last 365 Days No; Reg Smoking Cessation Counseling No entered on: 03/12/19 Family History No Data Provided for This Section Advance Directives No Data Provided for This Section Functional Status No Data Provided for This Section
== END 2019-08-01 10:20 | disposition home or self-care (01) ==
LOC: DS 09:25
PROVIDERS: ATTEND Podiatrist Foot & Ankle Surgery
DX: M86.9 Osteomyelitis, unspecified (principal); S91.301A Unspecified open wound, right foot, initial encounter
CPT/HCPCS: 96365; J0696